=== PATIENT | male | born 1950 | race Caucasian/White ===

== ENCOUNTER 2020-04-13 10:51 | Outpatient (CLI) | payer MEDICARE, SELFPAY ==
--- NOTE | ~2020-04-13 | XR_ITS ---
XR knee RT 3V, XR knee LT 3V 04/13/2020 11:17 Indication: Osteoarthritis. Procedure: 3 views each knee Comparison: Comparison to multiple prior studies sequentially, with oldest reviewed study dated 10/2016. Findings: There is mild bilateral tricompartment osteoarthritis. No fracture, subluxation or dislocat ion. Normal anatomic alignment. No significant joint effusion. Impression: 1: Mild osteoarthritis of the knees. Reviewed, dictated and finalized at location B. Impression: 1: Mild osteoarthritis of the knees. Impression: 1: Mild osteoarthritis of the knees.
== END 2020-04-13 10:52 | disposition home or self-care (01) ==
LOC: ANHIMG 10:53
PROVIDERS: PCP Internal Medicine; Visit Provider Internal Medicine
DX: M17.0 Bilateral primary osteoarthritis of knee (principal)
CPT/HCPCS: 73562

== ENCOUNTER 2020-05-10 12:50 | Outpatient (CLI) | payer MEDICARE, SELFPAY ==
--- NOTE | ~2020-05-10 | US_ITS ---
EXAMINATION: US thyroid DATE: 05/10/2020 13:31 INDICATION: Abnormal results of thyroid function studies. TECHNIQUE: Multiple ultrasound images of the thyroid were obtained. COMPARISON: None. FINDINGS: The right thyroid lobe measures 4.2 x 1.3 x 1.8 cm. The left thyroid lobe measures 2.8 x 1.2 x 1.5 c m. There is a 4 mm nodule in right thyroid lobe, likely not clinically significant. IMPRESSION: 1. Small thyroid nodule, likely not clinically significant. Reviewed, dictated and finalized at location B.
== END 2020-05-10 12:51 | disposition home or self-care (01) ==
LOC: ANHIMG 12:54
PROVIDERS: PCP Physician Assistant; Visit Provider Physician Assistant
DX: R94.6 Abnormal results of thyroid function studies (principal)
CPT/HCPCS: 76536

== ENCOUNTER 2020-07-24 11:14 | Outpatient (NON) | payer MEDICARE, SELFPAY ==
[2020-07-24 20:51] LABS: SARS-CoV-2 RNA PCR Negative
== END 2020-07-24 11:15 ==
LOC: ANHCOVIDDT 11:16
PROVIDERS: PCP Physician Assistant; Visit Provider Physician Assistant
DX: R68.89 Other general symptoms and signs (principal); Z20.828 Contact with and (suspected) exposure to other viral communicable diseases
CPT/HCPCS: 87635; C9803; U0003

== ENCOUNTER 2020-08-30 07:38 | Outpatient (CLI) | payer MEDICARE, SELFPAY ==
--- NOTE | 2020-10-12 09:25 | WPDHOMESLEEP ---
Sleep Study - Home Unattended Date of Study: 08/30/20 Ordering Provider: Jonah Tadeo PA-C Interpreting Physician: Ladi Ritchie MD Home Sleep Study Type: Apnea Link Air Height: 1.73 m Weight: 99.337 kg Body Mass Index: 33.3 Neck Circumference (inches): 19.5 [place]: 15 Reason for Sleep Study Hypersomnolence Sleep History Campbell Coronado is a 70-year-old man who has complaints of daytime sleepiness. He naps during the day. He occasionally snores and occasionally is loud enough that others complain about it. He occasionally awakens at night with heartburn, belching or coughing. Does not awaken from sleep feeling short of breath, does not have breathing problems at night reported to him by others. He occasionally sweats excessively at night. He rarely notices his heart pounding irregularly at night. He occasionally falls asleep during the day, rarely involuntarily, rarely while driving. He does not fall asleep while exerting physical effort. He does not have loss of muscle tone was strong emotion. He occasionally has daytime difficulties due to excessive sleepiness currently is semi retired. He does not feel paralyzed on waking or falling asleep and does not have vivid dreamlike scenes upon awakening or falling asleep. He rarely is afraid to go to sleep. He rarely has nightmares. He occasionally remembers his dreams, occasionally has racing thoughts. He rarely feels sad or depressed. He occasionally has anxiety. He occasionally has muscular tension and notices parts of his body jerking. He does not kick at night. He rarely has crawling and aching feelings in his legs and rarely has leg pain at night. He does not have morning jaw pain. He frequently grinds his teeth during sleep. He occasionally has bothered by pain during the day, occasionally is awakened by pain at night. He occasionally wakes up feeling stiff in the morning with sore achy muscles and pain in the neck and spine. He has fatigue, sexual problems, memory problems and concentration difficulties. Normal bedtime is between 11:00 p.m. and 12 midnight taking 1/2 hour to fall asleep, waking once during the night. If he is really exhausted then he may not wake at all during the night. On average when awake will go to the bathroom and then returned to bed. These episodes take 15 minutes. He wakes in the morning at 6:00 a.m.. On the weekend he may wake a little later at 6:30 a.m.. He does take naps in the afternoon or evening. A short nap is not refreshing. Most of the time he is drowsy in the morning for 3 hours or longer. He feels better in the morning compared to other times a day Habits: he has never smoked. Caffeine 1 cup of coffee 4 times a week. He drinks alcohol 2 to 3 oz a day. No recreational drugs. [facility] Past Medical History Medical History (Updated 10/12/20 @ 13:18 by Ladi Ritchie MD) Benign prostatic hyperplasia Gout History of pancreatitis Hyperlipidemia Hypertension Squamous cell carcinoma Type 2 diabetes mellitus Vitamin D deficiency Surgical History Surgical History H/O left knee surgery History of arthroscopy of left knee History of cardiac catheterization July 2011, done at [place] after an abnormal EKG portion of a stress test with normal myocardial perfusion images. Minimal nonobstructing coronary artery disease was noted. History of surgical removal of squamous cell carcinoma of skin of right faith History of testicular surgery Family History Family History Mother Carcinoma of colon Patient's mother is Father Patient's father is Other Cerebrovascular accident Hypertension Social History Social History Social History: The patient lives with his in [place]. 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 He jordi
[2020-10-12 13:25] VITALS: BMI 33.3
== END 2020-08-30 07:39 | disposition home or self-care (01) ==
LOC: ANHCSM 07:39
PROVIDERS: PCP Physician Assistant; Visit Provider Physician Assistant
DX: G47.10 Hypersomnia, unspecified (principal)
CPT/HCPCS: 95806

== ENCOUNTER 2020-09-27 11:08 | Outpatient (NON) | payer MEDICARE, SELFPAY ==
[2020-09-27 22:09] LABS: SARS-CoV-2 RNA PCR Negative
== END 2020-09-27 11:09 ==
LOC: ANHCOVIDDT 11:09
PROVIDERS: PCP Physician Assistant; Visit Provider Physician Assistant
DX: R68.89 Other general symptoms and signs (principal); Z20.828 Contact with and (suspected) exposure to other viral communicable diseases
CPT/HCPCS: 87635; C9803; U0003

== ENCOUNTER → 2020-11-10 00:24 | Outpatient (CLI) | payer MEDICARE, SELFPAY ==
[2020-11-10 18:19] LABS: SARS-CoV-2 RNA PCR Negative
== END ==
PROVIDERS: PCP Physician Assistant; Visit Provider Internal Medicine Critical Care Medicine
DX: Z01.812 Encounter for preprocedural laboratory examination (principal); Z20.822 Contact with and (suspected) exposure to COVID-19
CPT/HCPCS: C9803; U0003; U0005

== ENCOUNTER 2020-11-14 09:23 | Outpatient (CLI) | payer MEDICARE, SELFPAY ==
--- NOTE | 2020-11-28 14:58 | WPDSLEEPSTUD ---
Sleep Study Date of Study: 11/14/20 Ordering Provider: Jonah Tadeo PA-C Interpreting Physician: Ladi Ritchie MD Sleep Study Type: Split Polysomnogram Height: 1.73 m Weight: 97.976 kg Body Mass Index: 32.8 Neck Circumference: 4.57 m [place]: 10 Reason for Sleep Study Homes Sleep test 08/30/2020 with desaturation to 75%, Rajendra-Joy respirations during 3% of the test, BMI was 33.3 Hypersomnolence with [place] 15; presents now for split night study to confirm presence of obstructive sleep apnea and treat Sleep History Campbell Coronado is a 70 year old man who frequently snores, occasionally loudly enough that others complain about it. He occasionally awakens at night with heartburn, belching or coughing. He rarely awakens from sleep feeling short of breath. He rarely has trouble sleep with a cold. He does not wake up gasping for breath at night and does not have breathing problems at night reported to him by others. He occasionally sweats excessively at night. He rarely notices his heart pounding or beating irregularly night. He occasionally falls asleep during the day, rarely involuntarily, never while driving. He does not have loss of muscle tone with strong emotion. He does not have daytime difficulties due to excessive sleepiness. He does not feel paralyzed on waking or falling asleep and does not have vivid dreamlike scenes upon awakening or falling asleep. He does not feel afraid to go to sleep. He does not have nightmares. He does not remember his dreams. He rarely has racing thoughts. He rarely feels sad depressed or anxious. He rarely has muscular tension. He does not notice parts of his body jerking. He does not kick at night and does not have crawling or aching feelings in his legs. He does not have any kind of leg pain at night. He denies morning jaw pain. He occasionally grind his teeth during sleep. He occasionally is bothered by pain during the day. He rarely is awakened by pain at night, rarely wakes up feeling stiff in the morning with sore or achy muscles or pain in the neck and spine. He has fatigue. Normal bedtime is 10:30 p.m. taking 20 minutes to fall asleep typically waking twice at night to urinate. He is back to sleep in 3 minutes. He wakes the morning at 5:30 a.m.. On the weekends he stays awake until 11:00 p.m., wakes in the morning at 6:30 a.m.. He estimates getting 7-8 hours of sleep at night. Habits: Never smoked tobacco. Caffeine 1 cup per day. Alcohol 2 oz per day. [facility] Past Medical History Medical History (Updated 11/28/20 @ 15:07 by Ladi Ritchie MD) Benign prostatic hyperplasia Gout History of pancreatitis Hyperlipidemia Hypertension Squamous cell carcinoma Type 2 diabetes mellitus Vitamin D deficiency Surgical History Surgical History H/O left knee surgery History of arthroscopy of left knee History of cardiac catheterization July 2011, done at [place] after an abnormal EKG portion of a stress test with normal myocardial perfusion images. Minimal nonobstructing coronary artery disease was noted. History of surgical removal of squamous cell carcinoma of skin of right jain History of testicular surgery Family History Family History Mother Carcinoma of colon Patient's mother is Father Patient's father is Other Cerebrovascular accident Hypertension Social History Social History Social History: The patient lives with his in [place]. 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 He designates his , Sharmaine, as his surrogate decision maker and he wishes to be a full code. He denies tobacco and drug use. He drinks 6 ounces of scotch, most nights of the week. Smoking status: Never smoker Second hand tobacco smoke exposure: No A
[2020-11-29 15:13] VITALS: BMI 32.8
== END 2020-11-14 09:24 | disposition home or self-care (01) ==
LOC: ANHCSM 09:23
PROVIDERS: PCP Physician Assistant; Visit Provider Physician Assistant
DX: G47.33 Obstructive sleep apnea (adult) (pediatric) (principal)
CPT/HCPCS: 95811

== ENCOUNTER 2020-11-14 09:54 | Outpatient (CLI) | payer MEDICARE, SELFPAY ==
--- NOTE | ~2020-11-14 | US_ITS ---
US right upper quadrant DATE: 11/14/2020 10:49 INDICATION: Right upper quadrant abdominal pain TECHNIQUE: Real-time imaging of liver, pancreas, gallbladder COMPARISON: November 21, 2015 CT abdomen pelvis 10/23/2019 right upper quadrant ultrasound FINDINGS: Hepatic steatosis. 2 cm hepatic cyst near gallbladder. Otherwise no hepatic space-occupying mass lesion is evident. Normal hepatopedal portal venous flow direction. The pancreas is largely obscured by bowel gas. There is mild nonspecific gallbladder wall thickening. No gallstones are noted. Negative sonographic Farias's sign. The common bile duct measures 3.7 mm, within normal range. IMPRESSION: Hepatic steatosis 2 cm hepatic cyst Mild gallbladder wall thickening; negative sonographic Farias's sign. No gallstones identified Reviewed, dictated and finalized at Location A. Reviewed, dictated and finalized at location B. 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 No gallst ones identified
== END 2020-11-14 09:55 | disposition home or self-care (01) ==
PROVIDERS: PCP Physician Assistant; Visit Provider Physician Assistant
DX: R10.11 Right upper quadrant pain (principal); K76.0 Fatty (change of) liver, not elsewhere classified
CPT/HCPCS: 76705; 95811

== ENCOUNTER 2021-01-10 08:58 | Outpatient (CLI) | payer MEDICARE, SELFPAY | END 2021-01-10 08:59 | disposition home or self-care (01) | LOC: ANHCOVIDVC 08:58 | PROVIDERS: PCP Physician Assistant | DX: Z23 Encounter for immunization (principal) | CPT/HCPCS: 0001A; 91300 ==

== ENCOUNTER 2021-01-31 09:04 | Outpatient (CLI) | payer MEDICARE, SELFPAY | END 2021-01-31 09:05 | disposition home or self-care (01) | LOC: ANHCOVIDVC 09:04 | PROVIDERS: PCP Physician Assistant | DX: Z23 Encounter for immunization (principal) | CPT/HCPCS: 0002A; 91300 ==

== ENCOUNTER 2021-10-11 11:03 | Outpatient (RCR) | payer MEDICARE, SELFPAY ==
[2021-10-11] MEDS: ACETAMINOPHEN 325 MG TABLET 650 MG PO (15:49)
[2021-10-11] MEDS: FAMOTIDINE 20 MG TABLET PO (15:49)
[2021-10-11] MEDS: diphenhydrAMINE HCl CAP 25 MG CAPSULE PO (15:49)
[2021-10-11 15:51] VITALS: BP 159/80; PULSE 64; RESP 20; TEMP 36.4; O2SAT 99
[2021-10-11 16:54] VITALS: BP 144/69
== END 2021-10-11 17:00 ==
LOC: AMCINF 11:03
PROVIDERS: PCP Internal Medicine; Visit Provider Internal Medicine Hematology & Oncology
DX: U07.1 COVID-19 (principal); I10 Essential (primary) hypertension; E11.9 Type 2 diabetes mellitus without complications
CPT/HCPCS: A9270; M0243; Q0244

== ENCOUNTER → 2021-10-12 07:25 | Outpatient (CLI) | payer MEDICARE, SELFPAY ==
[2021-10-13 18:18] LABS: SARS-CoV-2 RNA PCR Positive
== END ==
PROVIDERS: PCP Internal Medicine; Visit Provider Internal Medicine
DX: U07.1 COVID-19 (principal)
CPT/HCPCS: C9803; U0003; U0005

== ENCOUNTER 2023-05-30 11:05 | Outpatient (CLI) | payer MEDICARE, SELFPAY ==
--- NOTE | ~2023-05-30 | US_ITS ---
EXAMINATION: US thyroid DATE: 05/30/2023 11:55 INDICATION: Thyroid nodule with family history of thyroid cancer TECHNIQUE: Multiple ultrasound images of the thyroid were obtained. COMPARISON: 05/10/2020 FINDINGS: The right thyroid lobe measures 3.5 x 0.9 x 1.1 cm. The left thyroid lobe measures 2.0 x 0.8 x 1.1 c m. Slight interval decrease in size of a now 2-3 mm hypoechoic nodule in the right thyroid. No other thyroid nodules identified. There is normal echotexture, echogenicity and vascular flow throughout t he thyroid gland. incidentally noted are a few normal-sized and appearing lymph nodes measuring 6 mm in short axis diameter in the left neck and 5 mm maximal short axis diameter at the right submandibu lar region. IMPRESSION: 1. Slight decrease in size of a likely benign, now 2 and 3 mm right thyroid nodule. Recommend clinica l followup with repeat imaging if there are changes on physical exam. Reviewed, dictated and finalized at location A. IMPRESSION: 1. Slight decrease in size of a likely benign, now 2 and 3 mm right thyroid nod ule. Recommend clinical followup with repeat imaging if there are changes on ph ysical exam.
== END 2023-05-30 11:06 | disposition home or self-care (01) ==
PROVIDERS: PCP Physician Assistant; Visit Provider Physician Assistant
DX: E04.1 Nontoxic single thyroid nodule (principal); Z80.8 Family history of malignant neoplasm of other organs or systems
CPT/HCPCS: 76536

== ENCOUNTER 2024-07-29 09:44 | Observation (INO) | payer MEDICARE, SELFPAY ==
[2024-07-29] VITALS (11 sets, daily range): BP systolic 130–157; BP diastolic 71–96; PULSE 73–180; RESP 16–19; TEMP 36.4–36.7; O2SAT 93–97; BMI 32.1
--- NOTE | ~2024-07-29 | NM_ITS ---
EXAMINATION: NM argenis stress w perfusion DATE: 07/30/2024 13:09 INDICATION: Elevated troponin TECHNIQUE: Rest images were obtained following intravenous administration of 8.5 mCi Tc99m tetrofosmi n (Myoview). The patient was infused intravenously with Lexiscan (Regadenoson). Then, 28 mCi Tc99m te trofosmin (Myoview) was administered intravenously, and stress images were obtained in supine positio n. Additional repeat post stress images were obtained in the prone position. Data was reconstructed i nto short axis and horizontal and vertical long axis SPECT images. Gated SPECT images were also obtai courtney. COMPARISON: None. FINDINGS: There is likely artifactual decreased activity along the mid and basilar inferolateral segm ents on the rest and stress images which normalizes on the post stress imaging obtained in the prone position. There is no definite reversible or fixed perfusion abnormality to suggest ischemia or infar ction. There is normal left ventricular chamber size, wall motion and ejection fraction. Left ventr icular ejection fraction measures 65%. IMPRESSION: 1. Normal myocardial perfusion at rest and during stress. 2. Left ventricular ejection fraction measuring 65%. Reviewed, dictated and finalized at location A.
--- NOTE | ~2024-07-29 | XR_ITS ---
EXAMINATION: XR chest 2V DATE: 07/29/2024 10:39 INDICATION: Chest pain. Palpitations. TECHNIQUE: Frontal and lateral views of the chest were obtained. COMPARISON: Chest 2 views 10/11/2019 FINDINGS: Calcified right lung nodules and calcified right hilar lymph nodes are consistent with old granulomatous disease. No pleural effusion or pneumothorax. The heart size is normal. IMPRESSION: 1. No acute cardiopulmonary disease. Reviewed, dictated and finalized at location B.
--- NOTE | 2024-07-29 09:47 | ECG_ITS ---
Test Date: 2024-07-29 09:49:43 Measurements Intervals [place] Rate: 179 P: 0 [place]: 0 QRS: -21 QRSD: 87 T: 112 QT: 258 QTc: 445 Interpretive Statements SUPRAVENTRICULAR TACHYCARDIA BORDERLINE LEFT AXIS DEVIATION [QRS AXIS < -20] MARKED ST DEPRESSION, CONSIDER SUBENDOCARDIAL INJURY [0.2+ mV ST DEPRESSION] No previous ECG available for comparison Electronically Signed On 07-29-2024 11:49:47 CDT by Pieter Max M.D.
--- NOTE | 2024-07-29 09:56 | ECG_ITS ---
Test Date: 2024-07-29 09:59:16 Measurements Intervals [place] Rate: 89 P: -41 ND: 152 QRS: 16 QRSD: 94 T: 77 QT: 373 QTc: 456 Interpretive Statements SINUS RHYTHM NONSPECIFIC ST & T-WAVE ABNORMALITY Compared to ECG 07/29/2024 09:49:43 T-wave abnormality now present Supraventricular tachycardia no longer present ST (T wave) deviation no longer present Electronically Signed On 07-29-2024 11:50:17 CDT by Pieter Max M.D.
--- NOTE | 2024-07-29 09:58 | ED.GENADULT ---
HPI - General Adult General Chief complaint: Arrhythmia/Palpitations Stated complaint: CHEST PAIN X1HR Time Seen by Provider: 07/29/24 09:51 History of Present Illness HPI narrative: 73-year-old male with no prior history of coronary disease or SVT presents to the emergency department for evaluation for rapid heart rate lightheadedness. Patient states he was at an outside hospital when he had onset of feeling foggy headed and developed some chest pressure. Patient presented to our emergency department for evaluation is found to have a heart rate of 180 beats per minute upon arrival. Patient was having some chest pressure with this but denies any specific pain. Patient states he has having some increased generalized fatigue with exertion over the last few months. Related Data Home Medications Medication Instructions Recorded Confirmed cetirizine 10 mg tablet (Allergy 10 mg PO DAILY 10/08/19 07/29/24 Relief (cetirizine)) ascorbic acid (vitamin C) 1,000 mg 1 g PO DAILY 11/18/23 07/29/24 tablet Allergies Allergy/AdvReac Type Severity Reaction Status Date / Time levofloxacin Allergy Mild Swelling Verified 07/29/24 10:11 Penicillins Allergy Mild Flushing Verified 07/29/24 10:11 Sulfa (Sulfonamide Allergy Mild swelling Verified 07/29/24 10:11 Antibiotics) Review of Systems Review of Systems: All systems reviewed & are unremarkable except as noted in HPI and below PMFSH Past Medical History Medical History Benign prostatic hyperplasia Gout History of pancreatitis Hyperlipidemia Hypertension Obstructive sleep apnea (~10/2020) Squamous cell carcinoma Type 2 diabetes mellitus Vitamin D deficiency Surgical History Surgical History H/O left knee surgery History of arthroscopy of left knee History of cardiac catheterization July 2011, done at [place] after an abnormal EKG portion of a stress test with normal myocardial perfusion images. Minimal nonobstructing coronary artery disease was noted. History of surgical removal of squamous cell carcinoma of skin of right adventism History of testicular surgery Family History Family History Mother Carcinoma of colon Patient's mother is Father Patient's father is Other Cerebrovascular accident Hypertension Social History Social History Social History: The patient lives with his in [place]. 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 He designates his , Sharmaine, as his surrogate decision maker and he wishes to be a full code. He denies tobacco and drug use. He drinks 6 ounces of scotch, most nights of the week. Smoking status: Never smoker Second hand tobacco smoke exposure: No Alcohol intake: current Drinks per week: 7 Substance use: never Substance use type: does not use Do You Feel Safe in your Home?: Yes Lack of Transportation: No Lack of Food: Never True Current Housing: I Have Housing Concerned About Future Housing: No Difficulty Paying Gas/Electric Bills: No Difficulty Paying for Meds: No Currently Unemployed: No Education: Trade/Vocational Certificate Difficulty w/ Childcare or Family Care: No Spiritual care concerns: No Agree to blood products: Yes Exam Narrative: APPEARANCE: Well appearing, no pain, no distress, well-nourished. HEAD: normocephalic, atraumatic. EYES: PERRLA/EOMI, conjunctivae clear. NOSE: Normal no drainage EARS:TMS clear with good light reflex. THROAT: Pharynx clear, no exudate. NECK: Supple. No adenopathy, no masses. RESPIRATORY: Airway patent, respirations nonlabored. Clear to auscultation bilaterally, no rales, rhonchi, wheezing. CARDIOVASCULAR: Regular rate and rhythm without murmurs rubs or gallops. ABDOMINAL: Soft, nontender, nondistended, normal bowel sounds MUSCULOSKELETAL: Moves all extremities. Strength/ROM intact, No edema, No calf tenderness. NEURO: Alert. Cranial nerves II through XII intact. Grossly intact SKIN: Warm, dry. Normal Color Course Vital Signs Vital signs: Vital Signs Pulse Rate 180 H 07/29/24 10:00 Respiratory Rate 19 07/29/24 10:00 Temperature 97.7 F 07/29/24 16:40 Pulse Rate 83 07/29/24 18:00 Respiratory Rate 18 07/29/24 16:40 Blood Pressure 132/96 H 07/29/24 16:40 Pulse Oximetry 97 07/29/24 16:40 Procedures Other Procedure Procedure 1: Other Procedure: Cardioversion using modified Valsalva was performed. Patient converted from SVT with a heart rate of 172 normal sinus rhythm with a heart rate of in 90s. Immediately after cardioversion patient states that his chest pressure was resolved. Medical Decision Making MDM Narrative Medical decision making narrative: 73-year-old male presenting to the emergency department for evaluation for rapid heart rate lightheadedness and chest pressure. Patient was found to be in SVT upon arrival to the emergency department. Patient was converted using the modified Valsalva and patient immediately stated that his symptoms of chest pressure resolved. Patient's initial EKG did show the heart rate of 179 beats per minute, 2nd EKG did show return to normal sinus rhythm with some ST changes. Patient's subsequent EKG showed resolution the ST depression. Patient's initial troponin was 0.014. Patient's 3 hour troponin was bumped to 0.721. Cardiology was consulted and they did not feel that the patient required heparin. Patient will be admitted to the hospitalist with cardiology consult. Was updated the results of the workup and necessity for admission and further evaluation. All questions concerns were addressed patient was well-appearing at time of admission. Differential Diagnosis Differential Diagnosis: SVT, V-tach, heart strain. Vital Signs Vital Signs: Vital Signs Pulse Rate 180 H 07/29/24 10:00 Respiratory Rate 19 07/29/24 10:00 Temperature 97.7 F 07/29/24 16:40 Pulse Rate 83 07/29/24 18:00 Respiratory Rate 18 07/29/24 16:40 Blood Pressure 132/96 H 07/29/24 16:40 Pulse Oximetry 97 07/29/24 16:40 Lab Data Lab results reviewed: Yes I reviewed the patient's lab results. 07/29/24 10:12 07/29/24 10:13 Labs: Lab Results 07/29/24 07/29/24 07/29/24 Range/Units 10:12 10:13 13:01 WBC 12.1 H (4.5-10.0) K/mm3 RBC 5.20 (4.6-6.20) M/mm3 Hgb 17.4 D (14.0-18.0) g/dL Hct 48.2 (42.0-52.0) % MCV 92.7 (80-100) fl MCH 33.5 (26-34) pg MCHC 36.1 H (32-36) g/dl RDW 13.2 (11.5-14.5) % Plt Count 289 (150-375) k/mm3 MPV 9.2 (7.4-10.4) fl Immature Gran % (Auto) 1.6 H (0-0.5) % Neut % (Auto) 72.6 (45.5-73.1) % Lymph % (Auto) 11.3 L (18.3-44.2) % [place] % (Auto) 10.5 H (2.6-8.5) % Eos % (Auto) 3.1 (0-4.4) % Baso % (Auto) 0.9 (0.2-1.2) % Lymph # (Auto) 1.37 (0.9-3.2) K/mm3 [place] # (Auto) 1.3 H (0.1-0.6) K/mm3 Eos # (Auto) 0.4 H (0-0.3) K/mm3 Baso # (Auto) 0.1 (0.0-0.1) K/mm3 Abs Immat Gran (auto) 0.19 H (0.00-0.031) K/mm3 Absolute Neuts (auto) 8.8 H (1.3-6.7) K/mm3 Absolute Nucleated RBC 0.000 (0.0-0.012) K/mm3 Nucleated RBC % 0.0 (0.0-0.2) % PT 13.4 (11.1-14.7) Seconds INR 1.0 APTT 25.8 (22.3-36.8) Seconds Sodium 134 L (137-145) mmol/L Potassium 3.7 (3.4-5.0) mmol/L Chloride 93 L (98-107) mmol/L Carbon Dioxide 31 H (22-30) mmol/L Anion Gap 10 (4-12) mmol/L BUN 15 (9-20) mg/dL Creatinine 1.00 (0.7-1.3) mg/dL Estim Creat Clear Calc 65 ml/min Estimated GFR > 60 (59 - ) Glucose 220 H (65-110) mg/dL Calcium 8.8 (8.4-10.2) mg/dL Magnesium 2.2 (1.6-2.3) mg/dL Total Bilirubin 1.4 H (0.2-1.3) mg/dL AST 74 H (17-59) U/L ALT 60 H (6-50) U/L Alkaline Phosphatase 118 (38-126) U/L Troponin I 0.014 0.721 H* D (0.000-0.034) ng/mL Total Protein 8.0 (6.3-8.2) g/dL Albumin 4.6 (3.5-5.1) g/dL Lipase 184 (23-300) U/L Imaging Data Radiologist's impression: Impressions Chest X-Ray 07/29/24 10:48 IMPRESSION: 1. No acute cardiopulmonary disease. Critical Care Time Critical Care Time Critical Care Time: Yes Total Critical Care Time: 35 Discharge Plan Discharge Clinical Impression: SVT (supraventricular tachycardia), Elevated troponin Patient Disposition: Still a Patient Condition: Serious
[2024-07-29 10:18] LABS: Basophils Absolute Auto 0.1 K/mm3 (0.0-0.1); Basophils Percent Auto 0.9 % (0.2-1.2); Eosinophils Absolute Auto 0.4 K/mm3 (0-0.3); Eosinophils Percent Auto 3.1 % (0-4.4); Hematocrit 48.2 % (42.0-52.0); Hemoglobin 17.4 g/dL (14.0-18.0); Immature Granulocyte Absolute 0.19 K/mm3 (0.00-0.031); Immature Granulocyte Percent A 1.6 % (0-0.5); Lymphocytes Absolute Auto 1.37 K/mm3 (0.9-3.2); Lymphocytes Percent Auto 11.3 % (18.3-44.2); Mean Corpuscular HGB Conc 36.1 g/dl (32-36); Mean Corpuscular Hemoglobin 33.5 pg (26-34); Mean Corpuscular Volume 92.7 fl (80-100); Mean Platelet Volume 9.2 fl (7.4-10.4); Monocytes Absolute Auto 1.3 K/mm3 (0.1-0.6); Monocytes Percent Auto 10.5 % (2.6-8.5); Neutrophils Absolute Auto 8.8 K/mm3 (1.3-6.7); Neutrophils Percent Auto 72.6 % (45.5-73.1); Platelet Count Result 289 k/mm3 (150-375); Red Cell Distribution Width 13.2 % (11.5-14.5); White Blood Count 12.1 K/mm3 (4.5-10.0)
[2024-07-29 10:29] LABS: Alanine Aminotransferase 60 U/L (6-50); Albumin Level 4.6 g/dL (3.5-5.1); Alkaline Phosphatase 118 U/L (38-126); Anion Gap 10 mmol/L (4-12); Aspartate Amino Transferase 74 U/L (17-59); Bilirubin,Total 1.4 mg/dL (0.2-1.3); Blood Urea Nitrogen 15 mg/dL (9-20); Calcium 8.8 mg/dL (8.4-10.2); Carbon Dioxide 31 mmol/L (22-30); Chloride 93 mmol/L (98-107); Estimated CRCL calculation 65 ml/min; Estimated Glomerular Filt Rate > 60; Glucose 220 mg/dL (65-110); Lipase 184 U/L (23-300); Potassium 3.7 mmol/L (3.4-5.0); Sodium 134 mmol/L (137-145)
[2024-07-29 10:30] LABS: Prothrombin Time 13.4 Seconds (11.1-14.7)
[2024-07-29 10:31] LABS: Magnesium 2.2 mg/dL (1.6-2.3)
[2024-07-29 10:37] LABS: Partial Thromboplastin Time 25.8 Seconds (22.3-36.8)
[2024-07-29 10:41] LABS: Troponin I 0.014 ng/mL (0.000-0.034)
--- NOTE | 2024-07-29 11:25 | PC.NURSE ---
orthotic technician to bedside for ordered repeat EKG.
--- NOTE | 2024-07-29 11:25 | ECG_ITS ---
Test Date: 2024-07-29 11:51:06 Measurements Intervals [place] Rate: 84 P: 85 [place]: 203 QRS: 8 QRSD: 90 T: 79 QT: 387 QTc: 458 Interpretive Statements SINUS RHYTHM WITH OCCASIONAL VENTRICULAR PREMATURE COMPLEXES NONSPECIFIC T-WAVE ABNORMALITY Compared to ECG 07/29/2024 09:59:16 Ventricular premature complex(es) now present T-wave abnormality still present Electronically Signed On 07-29-2024 11:57:28 CDT by Pieter Max M.D.
--- NOTE | 2024-07-29 13:05 | ECG_ITS ---
Test Date: 2024-07-29 13:27:55 Measurements Intervals [place] Rate: 74 P: 14 CT: 202 QRS: 16 QRSD: 85 T: 84 QT: 407 QTc: 453 Interpretive Statements SINUS RHYTHM NONSPECIFIC ST & T-WAVE ABNORMALITY Compared to ECG 07/29/2024 11:51:06 Ventricular premature complex(es) no longer present T-wave abnormality still present Electronically Signed On 07-29-2024 15:40:25 CDT by Pieter Max M.D.
[2024-07-29 13:33] LABS: Troponin I 0.721 ng/mL (0.000-0.034)
--- NOTE | 2024-07-29 14:44 | P.HP_ITS ---
H&P: HPI History of Present Illness Date/Time: 07/29/24 14:44 Chief Complaint: Palpitations, Chest Pain Narrative: 73 y/o M presents here with chest pain and palpitations with PMH of gout, pancreatitis, HLD, HTN, MYLES not on CPAP due to intolerance, squamous cell carcinoma s/p excision, diabetes, prostate cancer s/p prostatectomy, and vitamin-D deficiency. The patient presents here from home with palpitations and chest pain. He reports onset at around 08:00 a.m. He also had a strange sensation that crept over neck and head on the left side and felt like a brain freeze which quickly resolved. Which was constant for 1 hour prior to arrival. He further described the chest pain as tight, pressure-like, nonradiating, constant, and no aggravating or alleviating factors. Endorsed associated lightheadedness, diaphoresis, increased belching. Denies nausea, shortness of breath, or dizziness. Upon arrival, legal administrator showed SVT with a rate of 180. Patient was converted into normal sinus rhythm with a modified Valsalva maneuver. Upon buddhist of NSR, patient reports resolution of chest pressure and palpitations. He does report proceeding generalized fatigue that is exacerbated by exertion over the last 6 months. He reports no further recurrent chest pain, lightheadedness, dizziness, or palpitations. No hx of SVT. Initial VS at presentation: 97.6? F, HR 180, RR 19, 130/79, and 96% on RA. ED workup showed: WBC 12.1, hemoglobin 17.4, normal coags, sodium 134, creatinine 1.0 and GFR >60, glucose 220, initial troponin 0.014 and 2nd troponin 0.721. CXR showed no acute cardiopulmonary disease. Initial EKG showed SVT with a heart rate of 179, borderline left axis deviation, marked ST depression consider subendocardial injury. Review of Systems Review of Systems: All systems reviewed & are unremarkable except as noted in HPI and below [facility] Past Medical History Medical History Anxiety Benign prostatic hyperplasia Diastolic murmur Gout Hernia History of pancreatitis Hyperlipidemia Hypertension Obstructive sleep apnea (~10/2020) Squamous cell carcinoma TIA (transient ischemic attack) Type 2 diabetes mellitus Vitamin D deficiency Surgical History Surgical History H/O left knee surgery History of arthroscopy of left knee History of cardiac catheterization July 2011, done at [facility] after an abnormal EKG portion of a stress test with normal myocardial perfusion images. Minimal nonobstructing coronary artery disease was noted. History of surgical removal of squamous cell carcinoma of skin of right jain History of testicular surgery Family History Family History Mother Carcinoma of colon Patient's mother is Father Patient's father is Other Cerebrovascular accident Hypertension Social History Social History Social History: The patient lives with his in [place]. 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 He designates his , Sharmaine, as his surrogate decision maker and he wishes to be a full code. He denies tobacco and drug use. He drinks 6 ounces of scotch, most nights of the week. Smoking status: Never smoker Second hand tobacco smoke exposure: No Alcohol intake: current Drinks per week: 7 Substance use: never Substance use type: does not use Do You Feel Safe in your Home?: Yes Lack of Transportation: No Lack of Food: Never True Current Housing: I Have Housing Concerned About Future Housing: No Difficulty Paying Gas/Electric Bills: No Difficulty Paying for Meds: No Currently Unemployed: No Education: Trade/Vocational Certificate Difficulty w/ Childcare or Family Care: No Spiritual care concerns: No Agree to blood products: Yes Meds Home Medications and Allergies Home Medications Medication Instructions Recorded Confirmed Type cetirizine 10 mg tablet (Allergy 10 mg PO DAILY 10/08/19 07/29/24 History Relief (cetirizine)) ascorbic acid (vitamin C) 1,000 mg 1 g PO DAILY 11/18/23 07/29/24 History tablet semaglutide 1 mg/dose (4 mg/3 mL) 1 mg (0.75 mL) subcut WEEKLY #3 mL 05/18/24 07/29/24 Rx subcutaneous pen injector (Ozempic) losartan 100 1 tablet PO DAILY #90 tabs 07/05/24 07/29/24 Rx mg-hydrochlorothiazide 12.5 mg tablet polyethylene glycol 3350 17 17 g PO HS 07/29/24 07/29/24 History gram/dose oral powder (Miralax) Allergies Allergy/AdvReac Type Severity Reaction Status Date / Time levofloxacin Allergy Mild Swelling Verified 07/29/24 10:11 Penicillins Allergy Mild Flushing Verified 07/29/24 10:11 Sulfa (Sulfonamide Allergy Mild swelling Verified 07/29/24 10:11 Antibiotics) Vital Signs Vital Signs - 24 hr 07/29/24 10:06 07/29/24 10:00 07/29/24 10:00 Temperature 97.6 F Pulse Rate 180 H 180 H 88 Respiratory Rate 18 19 Blood Pressure Pulse Oximetry 96 07/29/24 10:07 07/29/24 12:10 07/29/24 13:35 Temperature Pulse Rate 91 102 H 76 Respiratory Rate 17 18 16 Blood Pressure 130/79 131/71 157/93 H Pulse Oximetry 93 94 94 Exam Const: General: comfortable and no acute distress Other: , male, elderly, nontoxic appearance HENMT: Face/Nose/Sinus: Normal nares present Mouth: Yes moist mucous membranes Eyes: General: appearance normal, both eyes and all related structures Sclera: sclerae normal Pupils: Equal, round and reactive pupils present EOM: EOMs intact bilaterally Resp: Effort & Inspection: normal respiratory effort Auscultation: clear to auscultation bilaterally Cardio: Rate: regular rate (70s) Rhythm: regular rhythm Other: S1-S2 present without murmur, rub, ectopy GI: Other: Abdomen rounded, soft, nondistended. Normoactive bowel sounds in all quadrants. Skin: General skin exam: normal color and no rashes or lesions noted Wounds: no wounds Neuro: Speech: normal speech Motor exam (neuro): 5/5 motor strength present throughout Sensory Exam: normal sensation Other: A&O x4 Extrem: General: normal to inspection Psych: Mental Status: mental status grossly normal Affect: normal affect Other: Good insight and judgment, pleasant H&P: Results Labs Labs: Short CBC 07/29/24 Range/Units 10:12 WBC 12.1 H (4.5-10.0) K/mm3 Hgb 17.4 D (14.0-18.0) g/dL Hct 48.2 (42.0-52.0) % Plt Count 289 (150-375) k/mm3 [facility] 07/29/24 10:13 Sodium 134 L Potassium 3.7 Chloride 93 L Carbon Dioxide 31 H BUN 15 Creatinine 1.00 Glucose 220 H Calcium 8.8 Cardiac Enzymes 07/29/24 07/29/24 Range/Units 10:13 13:01 Troponin I 0.014 0.721 H* D (0.000-0.034) ng/mL Liver Function 07/29/24 Range/Units 10:13 Total Bilirubin 1.4 H (0.2-1.3) mg/dL AST 74 H (17-59) U/L ALT 60 H (6-50) U/L Alkaline Phosphatase 118 (38-126) U/L Albumin 4.6 (3.5-5.1) g/dL Assessment and Plan Assessment and plan (1) SVT (supraventricular tachycardia): Code(s): I47.10 - Supraventricular tachycardia, unspecified Status: Acute Assessment and Plan: - initial heart rate in the 180s, converted with a modified Valsalva maneuver. Now in normal sinus rhythm with a rate in the 70s. No previous history of SVT. - EKG, initial: SVT, rate 179, borderline left axis deviation, marked ST depression consider subendocardial injury. - EKG, repeat (1): Sinus rhythm, nonspecific ST and T-wave abnormality. When compared to EKG done earlier today, SVT no longer present, ST/T-wave abnormality no longer present. T-wave abnormality now present. - EKG, repeat (2): NSR with occasional PVCs, nonspecific T-wave abnormality present. - Mag 2.2, add TSH and BNP - cardiology consulted, awaiting recs per discussion with ED, hold on heparin gtt - telemetry monitoring and admission to IMU (2) Elevated troponin: Code(s): R79.89 - Other specified abnormal findings of blood chemistry Status: Acute Assessment and Plan: - see above - troponin: 0.014 -> 0.721 -> 1.560. Fourth troponin ordered for 2299. - cardiology consulted, awaiting recs hold on heparin gtt per cards - ASA 324 given, started on 81 mg ASA daily - nitro SL p.r.n. - echo, previous (2019): EF 70% with normal systolic function and grade 1 diastolic dysfunction. See report for details. - telemetry monitoring (3) Type 2 diabetes mellitus: Qualifiers: Diabetes mellitus complication status: without complication Diabetes mellitus retirement insulin use: without retirement use Qualified Code(s): E11.9 - Type 2 diabetes mellitus without complications Code(s): E11.9 - Type 2 diabetes mellitus without complications Status: Acute Assessment and Plan: - hypoglycemia protocol - POC blood glucose ACHS - home medication: Hold Ozempic (NF) - correct regimen ordered - high dose TIDWM, based off BMI - A1C 6.4% on 05/12/2024 (4) Hypertension: Qualifiers: Hypertension type: essential hypertension Qualified Code(s): I10 - Essential (primary) hypertension Code(s): I10 - Essential (primary) hypertension Status: Acute Assessment and Plan: - chronic, currently 157/93 - continue home medications: Losartan-hydrochlorothiazide daily - monitor Plan Diet: Heart healthy GI Prophylaxis: Not currently indicated DVT Prophylaxis: SCDs Lines: Peripheral Code Status: Full code Quality VTE Prophylaxis VTE prophylaxis: mechanical ordered Hospitalist MIPS Advance Care Plan I have confirmed that the patient's Advanced Care Plan is present, code status is documented, or surrogate decision maker is listed in patient medical record.: Yes Medication Reconciliation I have utilized all available resources to obtain, update and review the lavell ents current medications (includes all prescriptions, OTC, herbals, cannabis, and nutritional supplements).: Yes
--- NOTE | 2024-07-29 15:58 | ECG_ITS ---
Test Date: 2024-07-29 16:10:06 Measurements Intervals [place] Rate: 72 P: -29 MI: 169 QRS: -3 QRSD: 81 T: 85 QT: 414 QTc: 456 Interpretive Statements SINUS RHYTHM BORDERLINE AV CONDUCTION DELAY BORDERLINE R WAVE PROGRESSION, ANTERIOR LEADS NONSPECIFIC ST & T-WAVE ABNORMALITY- LAT/HIGH LAT LEADS BASELINE ARTIFACT- I, II, AVR, AVL BORDERLINE ECG Compared to ECG 07/29/2024 13:27:55 No significant changes Electronically Signed On 07-30-2024 06:43:05 CDT by Yoel Poole D.O.
--- NOTE | 2024-07-29 17:38 | PC.NURSE ---
Arrived to the floor via stretcher from the ER. Denies chest pain or shortness of breath. Vital signs obtained. medical lab director placed on and functioning at this time. Alert and oriented. Follows all commands without difficulty. Able to answer all questions without hesitation. Aware of all home medications and dosing. Medication list updated. During conversation with patient and spouse, spouse states that he and she have been under a great deal of stress recently related to some family issues. Furthermore states that his allergies have been bothering him significantly all week long. Complains of a slight headache at this time. Patient spouse asked several questions related to SVT. This RN explained that cardiology had been consulted, discussed plan of care related to hospital stay including but not limited to continuous cardiac monitoring, obtaining vital signs, trending troponin levels until they peak per cardiology protocol and letting the mid level java developer know, EKGs as needed (i.e., as ordered or in the event he should have cardiac rhythm changes to name a few. Verbalizes understanding at this time. No acute distress noted at this time. Ambulated to the bathroom, pt. states I don't feel bad, just a little wobbly . Instructed not to get up and walk without assistance because of potential change in heart rhythm which could cause syncope/pass out, and want to reduce a risk of falls. Verbalizes understanding at this time.
[2024-07-29 20:05] LABS: Glucose Point of Care 187 mg/dl (65-105)
[2024-07-29] MEDS: polyethylene glycoL 3350 17 GM POWD.PACK PO (22:19)
[2024-07-30] VITALS (15 sets, daily range): BP systolic 113–182; BP diastolic 64–93; PULSE 62–74; RESP 18–21; TEMP 36.5–37.1; O2SAT 94–100
--- NOTE | 2024-07-30 | ECHO_ITS ---
Patient Info Name: Campbell Coronado Age: 73 years : 1950 Gender: Male Ht: 68 in Wt: 217 lbs BSA: 2.21 m2 HR: 63 bpm BP: 153 / 82 mmHg Heart Rhythm: Sinus Rhythm Technical Quality: Fair Exam Date: 07/30/2024 3:10 PM Exam Location: Echo Lab Patient Status: Inpatient Admit Date: 07/29/2024 Staff Ordering Physician: Alejandra Michele MD ([email or web address]/aimee) Senior Talent Acquisition Specialist: Sahtya Collier RDCS Attending Provider: Crow Meier MD Referring Physician: Ryne WHITMAN; Exam Type: CA echo doppler color flow Study Info Indications - svt Complete two-dimensional, color flow and Doppler transthoracic echocardiogram is performed. Summary 1. Complete two-dimensional, color flow and Doppler transthoracic echocardiogram is performed. 2. Left ventricular systolic function is normal, estimated at 60-65%. 3. There is mildly increased left ventricular wall thickness. 4. The left ventricular diastolic function is grade I diastolic dysfunction. 5. There is mild aortic valve regurgitation. 6. There is mild aortic valve sclerosis. 7. There is trace tricuspid valve regurgitation. 8. No pulmonary hypertension, estimated pulmonary arterial systolic pressure is 14 mmHg. 9. The prox ascending aorta size is mildly dilated. Measures 3.8cm. 10. The aortic root size at the sinus of Valsalva is borderline dilated. Measures 3.7 cm. Left Ventricle Left ventricular chamber dimension is normal. Left ventricular systolic function is normal, estimated at 60-65%. There is mildly increased left ventricular wall thickness. Left ventricular septal wall motion is normal. The left ventricular diastolic function is grade I diastolic dysfunction. Right Ventricle Right ventricular chamber dimension is normal. Right ventricular systolic function is normal. Left Atria Left atrial chamber dimension is normal. Right Atria Right atrial chamber dimension is normal. Atrial Septum Intact interatrial septum visualized by color flow imaging. Aortic Valve The aortic valve is trileaflet. There is mild aortic valve sclerosis. There is no aortic valve stenosis. There is mild aortic valve regurgitation. Pulmonic Valve The pulmonic valve is normal. There is no pulmonic valve stenosis. There is no pulmonic regurgitation. Mitral Valve The mitral valve has normal leaflets. There is no mitral valve stenosis. There is no mitral valve regurgitation. Tricuspid Valve The tricuspid valve leaflets are normal. There is no significant tricuspid valve stenosis. There is trace tricuspid valve regurgitation. No pulmonary hypertension, estimated pulmonary arterial systolic pressure is 14 mmHg. Pericardium/Pleural The pericardium appears normal. There is no pericardial effusion. Inferior Vena Cava Normal inferior vena cava with >50% collapse upon inspiration consistent with Empty right atrial pressure, 5 mmHg. Aorta The aortic root size at the sinus of Valsalva is borderline dilated. Measures 3.7 cm. The prox ascending aorta size is mildly dilated. Measures 3.8cm. Left Ventricular Outflow Tract Name Value Normal LVOT 2D LVOT Diameter 2.3 cm LVOT Doppler LVOT Peak Gradient 10 mmHg LVOT Mean Gradient 5 mmHg LVOT VTI 25 cm LVOT VTI/AV VTI Ratio 0.9 LVOT Stroke Volume 102 ml LVOT CO 5.7 l/min LVOT CI 2.6 l/min/m2 Pulmonic Valve Name Value Normal PV Doppler PV Peak Gradient 3 mmHg Mitral Valve Name Value Normal MV Doppler MV Decel [place] 138 cm/s2 MV PHT 95 ms MV Area (PHT) 2.3 cm2 4.0-5.0 MV Diastolic Function MV E Peak Velocity 45 cm/s MV A Peak Velocity 100 cm/s MV E/A 0.5 MV Decel Time 327 ms MV Annular TDI MV E/e' (Septal) 10.8 <=8.0 MV E/e' (Lateral) 11.4 <=8.0 MV E/e' (Average) 11.1 Tricuspid Valve Name Value Normal TV Regurgitation Doppler TR Peak Velocity 154 cm/s TR Peak Gradient 9 mmHg Estimated PAP/RSVP RA Pressure 5 mmHg <=5 PA Systolic Pressure 14 mmHg <36 RV Systolic Pressure 14 mmHg <36 Aortic Valve Name Value Normal AV Doppler AV Peak Velocity 139 cm/s AV Peak Gradient 8 mmHg AV Mean Gradient 5 mmHg AV VTI 28 cm AV Area (Cont Eq VTI) 3.7 cm2 >=3.0 AV Area (Cont Eq Samuel) 4.6 cm2 AV Regurgitation 2D LVOT Area 4.1 cm2 AV Regurgitation Doppler AR Decel Time 9,696 ms AR Decel [place] 22 cm/s2 AR PHT 2,812 ms Ventricles Name Value Normal LV Dimensions 2D/MM IVS Diastolic Thickness (2D) 1.2 cm 0.6-1.0 LVID Diastole (2D) 3.0 cm 4.2-5.8 LVIW Diastolic Thickness (2D) 1.0 cm 0.6-1.0 LVID Systole (2D) 2.0 cm 2.5-4.0 LVOT Diameter 2.3 cm LV Mass (2D Cubed) 97.14 g 88.00-224.00 LV Mass Index (2D Cubed) 44 g/m2 49-115 Relative Wall Thickness (2D) 0.69 LV Fractional Shortening/Ejection Fraction 2D/MM LV Fractional Shortening (2D) 33 % 25-43 LV EF (2D Teicholz) 64 % 52-72 LV Diastolic Volume (4C MOD) 103 ml LV EF (4C MOD) 55 % LV Diastolic Volume (2C MOD) 97 ml LV EF (2C MOD) 67 % LV Diastolic Volume (BP MOD) 102 ml 62-150 LV Diastolic Volume Index (BP MOD) 46 ml/m2 34-74 LV Systolic Volume (BP MOD) 39 ml 21-61 LV Systolic Volume Index (BP MOD) 18 ml/m2 11-31 LV EF (BP MOD) 62 % 52-72 LV Diastolic Length (4C) 8.9 cm LV Systolic Length (4C) 7.2 cm LV Stroke Volume (4C MOD) 57 ml Atria Name Value Normal LA Dimensions LA Volume (4C A-L) 17 ml LA Volume (BP A-L) 19 ml RA Dimensions RA Area (4C) 11.3 cm2 <=18.0 Report Signatures
[2024-07-30 05:17] LABS: Basophils Absolute Auto 0.1 K/mm3 (0.0-0.1); Eosinophils Absolute Auto 0.5 K/mm3 (0-0.3); Hematocrit 44.3 % (42.0-52.0); Hemoglobin 15.5 g/dL (14.0-18.0); Immature Granulocyte Absolute 0.13 K/mm3 (0.00-0.031); Immature Granulocyte Percent A 1.5 % (0-0.5); Lymphocytes Absolute Auto 1.23 K/mm3 (0.9-3.2); Lymphocytes Percent Auto 13.7 % (18.3-44.2); Mean Corpuscular Hemoglobin 32.5 pg (26-34); Mean Corpuscular Volume 92.9 fl (80-100); Mean Platelet Volume 8.9 fl (7.4-10.4); Monocytes Absolute Auto 1.3 K/mm3 (0.1-0.6); Monocytes Percent Auto 14.1 % (2.6-8.5); Neutrophils Absolute Auto 5.8 K/mm3 (1.3-6.7); Neutrophils Percent Auto 64.7 % (45.5-73.1); Platelet Count Result 242 k/mm3 (150-375); Red Blood Count 4.77 M/mm3 (4.6-6.20)
[2024-07-30 05:31] LABS: Alanine Aminotransferase 48 U/L (6-50); Albumin Level 4.2 g/dL (3.5-5.1); Alkaline Phosphatase 71 U/L (38-126); Anion Gap 8 mmol/L (4-12); Aspartate Amino Transferase 54 U/L (17-59); Bilirubin,Total 1.5 mg/dL (0.2-1.3); Blood Urea Nitrogen 17 mg/dL (9-20); Calcium 8.4 mg/dL (8.4-10.2); Carbon Dioxide 26 mmol/L (22-30); Chloride 97 mmol/L (98-107); Estimated CRCL calculation 71 ml/min; Estimated Glomerular Filt Rate > 60; Glucose 139 mg/dL (65-110); Potassium 3.8 mmol/L (3.4-5.0); Sodium 131 mmol/L (137-145)
[2024-07-30 05:38] LABS: NT Pro B Type Natriuretic Pept 533 pg/mL (19.9-100)
[2024-07-30 08:34] LABS: Glucose Point of Care 141 mg/dl (65-105)
[2024-07-30] MEDS: ASCORBIC ACID 500 MG TABLET 1000 MG PO (09:13)
[2024-07-30] MEDS: LOSARTAN POTASSIUM 100 MG TABLET PO (09:14)
[2024-07-30] MEDS: ASPIRIN 81 MG CHEWABLE TABLET PO (09:14)
[2024-07-30] MEDS: hydroCHLOROthiazide 12.5 MG CAPSULE PO (09:14)
[2024-07-30] MEDS: LORATADINE 10 MG TABLET PO (09:14)
--- NOTE | 2024-07-30 09:58 | EST_ITS ---
Patient Info Name: Campbell Coronado Age: 73 years : 1950 Gender: Male Ht: 68 in Wt: 217 lbs BSA: 2.21 m2 HR: 65 bpm BP: 160 / 89 mmHg Exam Date: 07/30/2024 11:25 AM Exam Location: Echo Lab Patient Status: Inpatient Admit Date: 07/29/2024 Staff Ordering Physician: Alejandra Michele MD Attending Provider: Crow Meier MD Exercise Technologist: Bre Sigala RDCS Exercise Physician: Alejandra Michele MD Exam Type: CA stress argenis w NM Study Info A regadenoson stress test was performed. Summary 1. No abnormal ST/T wave changes diagnostic of ischemia with Lexiscan. 2. Occasional PVCs. 3. Please correlate with nuclear medicine images, reported separately. 4. Stress test supervised by and interpreted by Alejandra Michele MD. Protocol: Lexiscan Stress ECG Details Stage: REST Duration (min): 2 min : 18 sec HR (bpm): 64 SBP (mmHg): 160 DBP (mmHg): 89 Stage: REST Duration (min): 21 min : 34 sec HR (bpm): 64 SBP (mmHg): 160 DBP (mmHg): 89 Stage: STAGE 1 Duration (min): 0 min : 59 sec HR (bpm): 79 SBP (mmHg): 146 DBP (mmHg): 99 Stage: RECOVERY Duration (min): 1 min : 0 sec HR (bpm): 83 SBP (mmHg): 146 DBP (mmHg): 99 Stage: RECOVERY Duration (min): 2 min : 0 sec HR (bpm): 81 SBP (mmHg): 146 DBP (mmHg): 99 Stage: RECOVERY Duration (min): 3 min : 0 sec HR (bpm): 75 SBP (mmHg): 148 DBP (mmHg): 96 Stage: RECOVERY Duration (min): 3 min : 8 sec HR (bpm): 77 SBP (mmHg): 148 DBP (mmHg): 96 Rest HR: 64 bpm Peak HR: 83 bpm Rest Sys BP: 160 mmHg Peak Sys BP: 148 mmHg Max Pred HR: 145 bpm % Max Pred HR: 57 % Target HR: 123 bpm Max RPP: 12,284 bpm*mmHg Total Time: 1 min : 0 sec Rest Reinoso BP: 89 mmHg Peak Reinoso BP: 96 mmHg Total Dose: 0.4 mg Resting ECG Sinus rhythm. Stress ECG No abnormal ST/T wave changes diagnostic of ischemia with Lexiscan. Arrhythmias Occasional PVCs. Report Signatures
--- NOTE | 2024-07-30 10:07 | PM.CNCAR ---
Assessment and Plan Assessment and plan (1) SVT (supraventricular tachycardia): Code(s): I47.10 - Supraventricular tachycardia, unspecified Status: Acute Assessment and Plan: New diagnosis for the patient. TSH level normal. Echocardiogram ordered and pending. Will start Toprol 50mg once daily. (2) Elevated troponin: Code(s): R79.89 - Other specified abnormal findings of blood chemistry Status: Acute Assessment and Plan: Initial EKG showed SVT with heart rate of 179bpm with diffuse ST depressions. Subsequent EKGs showed normal sinus rhythm with improvement in those ST depressions. He has not had any chest pain at home recently or shortness of breath, but does note recent development of exertional fatigue. Initial troponin was negative, however, troponin became elevated and peaked at 1.560. Given ST depressions on EKG, troponin elevation, symptoms of exertional fatigue, will obtain Lexiscan stress test to evaluate for obstructive CAD. (3) Hypertension: Qualifiers: Hypertension type: essential hypertension Qualified Code(s): I10 - Essential (primary) hypertension Code(s): I10 - Essential (primary) hypertension Status: Acute Assessment and Plan: Stable. Continue home antihypertensive regimen. (4) Hyperlipidemia: Qualifiers: Hyperlipidemia type: other hyperlipidemia Qualified Code(s): E78.49 - Other hyperlipidemia Code(s): E78.5 - Hyperlipidemia, unspecified Status: Acute Assessment and Plan: Not on statin at home. LDL 04/2024 was 84 (5) Type 2 diabetes mellitus: Qualifiers: Diabetes mellitus longterm insulin use: without longterm use Diabetes mellitus complication status: without complication Qualified Code(s): E11.9 - Type 2 diabetes mellitus without complications Code(s): E11.9 - Type 2 diabetes mellitus without complications Status: Acute Assessment and Plan: Management as per primary team. Plan If echocardiogram and nuclear stress test without significant abnormality, then patient can be discharge home later today. Patient has a scientific technical writer at [facility], who he will follow up with after hospital discharge. Recommendations and plan discussed with Hospitalist. History of Present Illness History of Present Illness Consult date/time: 07/30/24 10:07 Requesting physician: Lon Whittaker MD Consult reason: post-op evaluation (SVT, Elevated troponin ) Reason For Visit: SVT/Elevated Troponin Narrative: This is a 73 year old male with hypertension, hyperlipidemia, diabetes, MYLES not on CPAP due to intolerance, gout, prostate cancer s/p prostatectomy who presented to [place] ER for chest pain evaluation. He had sudden onset of a shock like pain on the left side of his face, palpitations, chest pressure. In the ED, he was noted to be in SVT with heart rates in the 180s. Patient converted to normal sinus rhythm with a modified Valsalva maneuver. Initial EKG showed SVT with heart rate of 179bpm with diffuse ST depressions. Subsequent EKGs showed normal sinus rhythm with improvement in those ST depressions. He is feeling better now. He has not had any chest pain at home recently or shortness of breath, but does not exertional fatigue, which has been new. Initial troponin was negative, however, troponin became elevated and peaked at 1.560. TSH level is normal. Review of Systems Review of Systems: All systems reviewed & are unremarkable except as noted in HPI and below (HPI) [facility] Past Medical History Medical History Anxiety Benign prostatic hyperplasia Diastolic murmur Gout Hernia History of pancreatitis Hyperlipidemia Hypertension Obstructive sleep apnea (~10/2020) Squamous cell carcinoma TIA (transient ischemic attack) Type 2 diabetes mellitus Vitamin D deficiency Surgical History Surgical History H/O left knee surgery History of arthroscopy of left knee History of cardiac catheterization July 2011, done at [facility] after an abnormal EKG portion of a stress test with normal myocardial perfusion images. Minimal nonobstructing coronary artery disease was noted. History of surgical removal of squamous cell carcinoma of skin of right muslim History of testicular surgery Family History Family History Mother Carcinoma of colon Patient's mother is Father Patient's father is Other Cerebrovascular accident Hypertension Social History Social History Social History: The patient lives with his in [place]. 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 He designates his , Sharmaine, as his surrogate decision maker and he wishes to be a full code. He denies tobacco and drug use. He drinks 6 ounces of scotch, most nights of the week. Smoking status: Never smoker Second hand tobacco smoke exposure: No Alcohol intake: current Drinks per week: 7 Substance use: never Substance use type: does not use Do You Feel Safe in your Home?: Yes Lack of Transportation: No Lack of Food: Never True Current Housing: I Have Housing Concerned About Future Housing: No Difficulty Paying Gas/Electric Bills: No Difficulty Paying for Meds: No Currently Unemployed: No Education: Trade/Vocational Certificate Difficulty w/ Childcare or Family Care: No Spiritual care concerns: No Agree to blood products: Yes Meds Home Medications and Allergies Home Medications Medication Instructions Recorded Confirmed Type cetirizine 10 mg tablet (Allergy 10 mg PO DAILY 10/08/19 07/29/24 History Relief (cetirizine)) ascorbic acid (vitamin C) 1,000 mg 1 g PO DAILY 11/18/23 07/29/24 History tablet semaglutide 1 mg/dose (4 mg/3 mL) 1 mg (0.75 mL) subcut WEEKLY #3 mL 05/18/24 07/29/24 Rx subcutaneous pen injector (Ozempic) losartan 100 1 tablet PO DAILY #90 tabs 07/05/24 07/29/24 Rx mg-hydrochlorothiazide 12.5 mg tablet polyethylene glycol 3350 17 17 g PO HS 07/29/24 07/29/24 History gram/dose oral powder (Miralax) Allergies Allergy/AdvReac Type Severity Reaction Status Date / Time levofloxacin Allergy Mild Swelling Verified 07/29/24 10:11 Penicillins Allergy Mild Flushing Verified 07/29/24 10:11 Sulfa (Sulfonamide Allergy Mild swelling Verified 07/29/24 10:11 Antibiotics) Vital Signs Vital Signs - 24 hr 07/29/24 12:10 07/29/24 13:35 07/29/24 16:22 Temperature Pulse Rate 102 H 76 77 Respiratory Rate 18 16 18 Blood Pressure 131/71 157/93 H 140/90 Pulse Oximetry 94 94 96 Oxygen Delivery 07/29/24 18:00 07/29/24 16:40 07/29/24 19:48 Temperature 36.5 C 36.7 C Pulse Rate 83 75 73 Respiratory Rate 18 18 Blood Pressure 132/96 H 138/77 Pulse Oximetry 97 96 Oxygen Delivery 07/29/24 20:00 07/29/24 20:00 07/29/24 22:00 Temperature Pulse Rate 77 73 Respiratory Rate Blood Pressure Pulse Oximetry Oxygen Delivery Room Air 07/30/24 00:51 07/30/24 00:00 07/30/24 00:00 Temperature 37.1 C Pulse Rate 66 74 Respiratory Rate 18 Blood Pressure 146/83 H Pulse Oximetry 94 Oxygen Delivery Room Air 07/30/24 02:00 07/30/24 03:59 07/30/24 04:00 Temperature 36.8 C Pulse Rate 65 66 Respiratory Rate 18 Blood Pressure 129/79 Pulse Oximetry 96 Oxygen Delivery Room Air 07/30/24 04:00 07/30/24 06:00 07/30/24 08:24 Temperature 36.7 C Pulse Rate 67 63 63 Respiratory Rate 18 Blood Pressure 153/82 H Pulse Oximetry 100 Oxygen Delivery Exam Const: General: comfortable and no acute distress HENMT: Mouth: Yes moist mucous membranes Eyes: General: appearance normal, both eyes and all related structures Sclera: sclerae normal Resp: Effort & Inspection: normal respiratory effort Auscultation: clear to auscultation bilaterally Cardio: Rate: regular rate Rhythm: regular rhythm Heart sounds: no murmurs Skin: General skin exam: normal color Neuro: Speech: normal speech Psych: Mental Status: mental status grossly normal Affect: normal affect Results Labs and Meds 07/30/24 04:56 07/30/24 04:56 Lab results: Cardiac Enzymes 07/29/24 07/29/24 07/29/24 Range/Units 10:13 13:01 16:17 AST 74 H (17-59) U/L Troponin I 0.014 0.721 H* D 1.560 H* D (0.000-0.034) ng/mL 07/29/24 07/30/24 Range/Units 23:15 04:56 AST 54 (17-59) U/L Troponin I 1.390 H* (0.000-0.034) ng/mL Coagulation 07/29/24 Range/Units 10:12 PT 13.4 (11.1-14.7) Seconds APTT 25.8 (22.3-36.8) Seconds CBC 07/29/24 07/30/24 Range/Units 10:12 04:56 WBC 12.1 H 9.0 (4.5-10.0) K/mm3 RBC 5.20 4.77 (4.6-6.20) M/mm3 Hgb 17.4 D 15.5 (14.0-18.0) g/dL Hct 48.2 44.3 (42.0-52.0) % Plt Count 289 242 (150-375) k/mm3 Lymph # (Auto) 1.37 1.23 (0.9-3.2) K/mm3 [place] # (Auto) 1.3 H 1.3 H (0.1-0.6) K/mm3 Eos # (Auto) 0.4 H 0.5 H (0-0.3) K/mm3 Baso # (Auto) 0.1 0.1 (0.0-0.1) K/mm3 Comprehensive Metabolic Panel 07/29/24 07/30/24 Range/Units 10:13 04:56 Sodium 134 L 131 L (137-145) mmol/L Potassium 3.7 3.8 (3.4-5.0) mmol/L Chloride 93 L 97 L (98-107) mmol/L Carbon Dioxide 31 H 26 (22-30) mmol/L BUN 15 17 (9-20) mg/dL Creatinine 1.00 0.90 (0.7-1.3) mg/dL Glucose 220 H 139 H (65-110) mg/dL Calcium 8.8 8.4 (8.4-10.2) mg/dL AST 74 H 54 (17-59) U/L ALT 60 H 48 (6-50) U/L Alkaline Phosphatase 118 71 (38-126) U/L Total Protein 8.0 8.0 (6.3-8.2) g/dL Albumin 4.6 4.2 (3.5-5.1) g/dL Intake and Output 07/29/24 07/30/24 07/30/24 23:59 07:59 15:59 Intake Total 320 550 240 Output Total 775 Balance 320 -225 240 Intake: Oral 320 550 240 Output: Urine 775 Patient Weight 07/30/24 23:59 Weight 98.6 kg
[2024-07-30] MEDS: METOPROLOL SUCCINATE EXT REL 50 MG TABCR PO (13:25)
[2024-07-30 13:51] LABS: Glucose Point of Care 179 mg/dl (65-105)
--- NOTE | 2024-07-30 14:40 | P.DS_ITS ---
DS: Admitting Diagnosis Discharge Date 07/30/2024 Admitting Diagnosis chest pain DS: Discharge Diagnosis Discharge Diagnosis (1) SVT (supraventricular tachycardia): Code(s): I47.10 - Supraventricular tachycardia, unspecified Status: Acute (2) Elevated troponin: Code(s): R79.89 - Other specified abnormal findings of blood chemistry Status: Acute (3) Type 2 diabetes mellitus: Qualifiers: Diabetes mellitus complication status: without complication Diabetes mellitus group home insulin use: without literacy consultant use Qualified Code(s): E11.9 - Type 2 diabetes mellitus without complications Code(s): E11.9 - Type 2 diabetes mellitus without complications Status: Acute (4) Hypertension: Qualifiers: Hypertension type: essential hypertension Qualified Code(s): I10 - Essential (primary) hypertension Code(s): I10 - Essential (primary) hypertension Status: Acute DS: Summary Hospital Course Hospital Course: 73 y/o M who presents with chest pain and palpitations with PMH of gout, pancreatitis, HLD, HTN, MYLES not on CPAP due to intolerance, squamous cell carcinoma s/p excision, diabetes, prostate cancer s/p prostatectomy, and vitamin-D deficiency. The patient presents here from home with palpitations and chest pain. He reports onset at around 08:00 a.m. He also had a strange sensation that crept over neck and head on the left side and felt like a brain freeze which quickly resolved. Which was constant for 1 hour prior to arrival. He further described the chest pain as tight, pressure-like, nonradiating, constant, and no aggravating or alleviating factors. Endorsed associated lightheadedness, diaphoresis, increased belching. Denies nausea, shortness of breath, or dizziness. Upon arrival, manager monitoring showed SVT with a rate of 180. Patient was converted into normal sinus rhythm with a modified Valsalva maneuver. Upon spiritism of NSR, patient reports resolution of chest pressure and palpitations. He does report proceeding generalized fatigue that is exacerbated by exertion over the last 6 months. He reports no further recurrent chest pain, lightheadedness, dizziness, or palpitations. No hx of SVT. Initial VS at presentation: 97.6? F, HR 180, RR 19, 130/79, and 96% on RA. ED workup showed: WBC 12.1, hemoglobin 17.4, normal coags, sodium 134, creatinine 1.0 and GFR >60, glucose 220, initial troponin 0.014 and 2nd troponin 0.721. CXR showed no acute cardiopulmonary disease. Initial EKG showed SVT with a heart rate of 179, borderline left axis deviation, marked ST depression consider subendocardial injury. Patient is started on beta-arianne. TSH normal magnesium normal. Cardiology was consulted. Serial troponin did elevate from 0.26532.7-1 to 1.560. Cardiology suspects it is to be related to SVT. Lexiscan was performed subsequently on 07/30/2020 for which was normal at rest and stress. Echo was also performed during the hospital stay which will be reviewed as an outpatient basis. He follows up with materials management manager at [facility] and is recommended to do so after discharge. Time Spent with Patient Time attestation: Total time spent providing and/or coordinating discharge services: 35 minutes Exam Narrative: APPEARANCE: Well appearing, no pain, no distress, well-nourished. HEAD: normocephalic, atraumatic. EYES: PERRLA/EOMI, conjunctivae clear. NOSE: Normal no drainage NECK: Supple. No adenopathy, no masses. RESPIRATORY: Airway patent, respirations nonlabored. Clear to auscultation bilaterally, no rales, rhonchi, wheezing. CARDIOVASCULAR: Regular rate and rhythm without murmurs rubs or gallops. ABDOMINAL: Soft, nontender, nondistended, normal bowel sounds MUSCULOSKELETAL: Moves all extremities. Strength/ROM intact, No edema, No calf tenderness. NEURO: Alert. Cranial nerves II through XII intact. Grossly intact SKIN: Warm, dry. Normal Color DS: Data Data Completed and Pending Labs on day of discharge: Labs from last 24 hours 07/30/24 07/30/24 07/30/24 13:24 07:43 04:56 WBC 9.0 RBC 4.77 Hgb 15.5 Hct 44.3 MCV 92.9 MCH 32.5 MCHC 35.0 RDW 13.0 Plt Count 242 MPV 8.9 Immature Gran % (Auto) 1.5 H Neut % (Auto) 64.7 Lymph % (Auto) 13.7 L [place] % (Auto) 14.1 H Eos % (Auto) 5.0 H Baso % (Auto) 1.0 Lymph # (Auto) 1.23 [place] # (Auto) 1.3 H Eos # (Auto) 0.5 H Baso # (Auto) 0.1 Abs Immat Gran (auto) 0.13 H Absolute Neuts (auto) 5.8 Absolute Nucleated RBC 0.000 Nucleated RBC % 0.0 Sodium 131 L Potassium 3.8 Chloride 97 L Carbon Dioxide 26 Anion Gap 8 BUN 17 Creatinine 0.90 Estim Creat Clear Calc 71 Estimated GFR > 60 Glucose 139 H POC Capillary Glucose 179 H 141 H Calcium 8.4 Total Bilirubin 1.5 H AST 54 ALT 48 Alkaline Phosphatase 71 Troponin I NT-Pro-B Natriuret Pep 533 H Total Protein 8.0 Albumin 4.2 TSH (Reflex) 3.770 07/29/24 07/29/24 07/29/24 23:15 19:51 16:17 WBC RBC Hgb Hct MCV MCH MCHC RDW Plt Count MPV Immature Gran % (Auto) Neut % (Auto) Lymph % (Auto) [place] % (Auto) Eos % (Auto) Baso % (Auto) Lymph # (Auto) [place] # (Auto) Eos # (Auto) Baso # (Auto) Abs Immat Gran (auto) Absolute Neuts (auto) Absolute Nucleated RBC Nucleated RBC % Sodium Potassium Chloride Carbon Dioxide Anion Gap BUN Creatinine Estim Creat Clear Calc Estimated GFR Glucose POC Capillary Glucose 187 H Calcium Total Bilirubin AST ALT Alkaline Phosphatase Troponin I 1.390 H* 1.560 H* D NT-Pro-B Natriuret Pep Total Protein Albumin TSH (Reflex) Imaging Radiologist's impression: ITS Impressions Chest X-Ray 07/29/24 10:48 IMPRESSION: 1. No acute cardiopulmonary disease. Lexiscan Stress Test 07/30/24 13:30 IMPRESSION: 1. Normal myocardial perfusion at rest and during stress. 2. Left ventricular ejection fraction measuring 65%. ITS Impressions Chest X-Ray 07/29/24 10:48 IMPRESSION: 1. No acute cardiopulmonary disease. Lexiscan Stress Test 07/30/24 13:30 IMPRESSION: 1. Normal myocardial perfusion at rest and during stress. 2. Left ventricular ejection fraction measuring 65%. Discharge Plan Discharge Attending physician on discharge: Crow Meier Consulting providers: Emi Garza Discharging Clinician: Crow Meier Anticipated Discharge Date/Time: 07/30/24 14:38 Patient Disposition: Home, Self-Care Activity: as tolerated Diet: heart healthy Patient Instructions: Antibiotic Form Stand Alone Forms: General Discharge Information Follow-up/Referrals: Emi Garza APNAleksander [Advanced Practice Nurse] - 2 Weeks Soy Juan DO [Primary Care Provider] - 1 Week Discharge Medications: New aspirin [Children's Aspirin] 81 mg Tablet,Chewable 81 mg PO DAILY@0800 Qty: 30 0RF metoprolol succinate 50 mg Tablet Extended Release 24 Hr 50 mg PO QAM Qty: 30 0RF Continued cetirizine [Allergy Relief (cetirizine)] 10 mg tablet 10 mg PO DAILY ascorbic acid (vitamin C) 1,000 mg tablet 1 g PO DAILY Ozempic 1 mg/dose (4 mg/3 mL) pen injector 1 mg subcut WEEKLY Qty: 3 5RF polyethylene glycol 3350 [Miralax] 17 gram/dose Powder 17 g PO HS losartan-hydrochlorothiazide 100-12.5 mg tablet 1 tablet PO DAILY Qty: 90 3RF Date of admission: 07/29/24 14:14 Primary Care Provider: Soy Juan Admitting Provider: Crow Meier Attending physician on admission: Crow Meier Condition: Improved
[2024-07-30 18:09] LABS: Glucose Point of Care 198 mg/dl (65-105)
== END 2024-07-30 17:30 | disposition home or self-care (01) ==
LOC: ANHED 14:00 → ANHIMU 15:59
PROVIDERS: Nurse Practitioner; Student in an Organized Health Care Education/Training Program; Admitting Provider Internal Medicine; Emergency Provider Emergency Medicine; PCP Internal Medicine; Visit Provider Internal Medicine
DX: I47.10 Supraventricular tachycardia, unspecified (principal); R79.89 Other specified abnormal findings of blood chemistry; E11.9 Type 2 diabetes mellitus without complications; I10 Essential (primary) hypertension; M10.9 Gout, unspecified; E78.5 Hyperlipidemia, unspecified; G47.33 Obstructive sleep apnea (adult) (pediatric); E55.9 Vitamin D deficiency, unspecified; N40.0 Benign prostatic hyperplasia without lower urinary tract symptoms; Z79.85 Long-term (current) use of injectable non-insulin antidiabetic drugs; Z79.899 Other long term (current) drug therapy; Z85.46 Personal history of malignant neoplasm of prostate; Z85.828 Personal history of other malignant neoplasm of skin; Z86.73 Personal history of transient ischemic attack (TIA), and cerebral infarction without residual deficits
CPT/HCPCS: 36415; 71046; 78452; 80053; 82948; 83690; 83735; 83880; 84443; 84484; 85025; 85610; 85730; 93005; 93017; 93306; 99285; A9270; A9502; G0378; J2785

== ENCOUNTER 2024-08-07 15:02 | Emergency (ER) | payer MEDICARE, SELFPAY ==
--- NOTE | ~2024-08-07 | US_ITS ---
EXAMINATION: US venous doppler [facility] DATE: 08/07/2024 15:41 INDICATION: pain, redness, swelling . TECHNIQUE: Grayscale images without and with compression and Doppler images of the left lower extremi ty veins were obtained. COMPARISON: 10/22/2019 FINDINGS: The left common femoral vein, profunda (deep) femoral vein, femoral vein, popliteal vein, peroneal v ein, posterior tibial veins, and greater saphenous vein are patent. IMPRESSION: Patent left lower extremity veins. No evidence of deep venous thrombosis. Reviewed, dictated and finalized at location K. [facility] OFFICE SUPERVISOR
--- NOTE | ~2024-08-07 | XR_ITS ---
EXAM: XR ankle LT min 3V DATE: 08/07/2024 16:06 HISTORY: left ankle pain, swelling SINCE 08/02, RECENT HOSPITAL STAY . COMPARISON: None available. FINDINGS: Normal mineralization. No fracture or dislocation. No lytic or blastic lesion. Scattered d egenerative changes. Plantar and Achilles enthesopathy. No erosion or periosteal change. Scattered va scular calcifications. IMPRESSION: No acute osseous finding in the left ankle. Reviewed, dictated and finalized at location K. E LABORER
[2024-08-07 15:08] VITALS: BP 158/74; PULSE 62; RESP 16; TEMP 36.1; O2SAT 99
--- NOTE | 2024-08-07 15:20 | ED_ITS ---
HPI - Extremity Problem General Chief complaint: Extremity Problem,Nontraumatic Stated complaint: DVT? Time Seen by Provider: 08/07/24 15:12 Source: patient Mode of arrival: ambulatory Limitations: no limitations History of Present Illness HPI Narrative: this is a 73-year-old male that presents to the emergency department for left ankle pain. Ongoing over the last 5 days. No known injury or trauma. Reports the left inner ankle is painful and swollen, tender to touch. He does report history of gout. Was recently hospitalized and was concerned for possible DVT which prompted in to be seen. Denies fevers or erythema. Related Data Home Medications Medication Instructions Recorded Confirmed cetirizine 10 mg tablet (Allergy 10 mg PO DAILY 10/08/19 07/29/24 Relief (cetirizine)) ascorbic acid (vitamin C) 1,000 mg 1 g PO DAILY 11/18/23 07/29/24 tablet polyethylene glycol 3350 17 17 g PO HS 07/29/24 07/29/24 gram/dose oral powder (Miralax) Allergies Allergy/AdvReac Type Severity Reaction Status Date / Time levofloxacin Allergy Mild Swelling Verified 08/07/24 15:32 Penicillins Allergy Mild Flushing Verified 08/07/24 15:32 Sulfa (Sulfonamide Allergy Mild swelling Verified 08/07/24 15:32 Antibiotics) Review of Systems Review of Systems: CONSTITUTIONAL: Denies fever SKIN: Denies rash MUSCULOSKELETAL: Reports joint pain, and myalgia. NEUROLOGIC: Denies numbness, or weakness. All systems reviewed & are unremarkable except as noted in HPI and below PMFSH Past Medical History Medical History Anxiety Benign prostatic hyperplasia Diastolic murmur Gout Hernia History of pancreatitis Hyperlipidemia Hypertension Obstructive sleep apnea (~10/2020) Squamous cell carcinoma TIA (transient ischemic attack) Type 2 diabetes mellitus Vitamin D deficiency Surgical History Surgical History H/O left knee surgery History of arthroscopy of left knee History of cardiac catheterization July 2011, done at [facility] after an abnormal EKG portion of a stress test with normal myocardial perfusion images. Minimal nonobstructing coronary artery disease was noted. History of surgical removal of squamous cell carcinoma of skin of right restoration History of testicular surgery Family History Family History Mother Carcinoma of colon Patient's mother is Father Patient's father is Other Cerebrovascular accident Hypertension Social History Social History Social History: The patient lives with his in [place]. 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 He designates his , Sharmaine, as his surrogate decision maker and he wishes to be a full code. He denies tobacco and drug use. He drinks 6 ounces of scotch, most nights of the week. Smoking status: Never smoker Second hand tobacco smoke exposure: No Alcohol intake: current Drinks per week: 7 Substance use: never Substance use type: does not use Do You Feel Safe in your Home?: Yes Lack of Transportation: No Lack of Food: Never True Current Housing: I Have Housing Concerned About Future Housing: No Difficulty Paying Gas/Electric Bills: No Difficulty Paying for Meds: No Currently Unemployed: No Education: Trade/Vocational Certificate Difficulty w/ Childcare or Family Care: No Spiritual care concerns: No Agree to blood products: Yes Exam Narrative: GENERAL: Well-appearing, well-nourished, and in no acute distress. HEAD: Normocephalic, atraumatic. EYES: EOMI. CHEST: No respiratory distress. HEART: Regular rate EXTREMITIES: Normal range of motion. No erythema. Mild swelling about the medial malleolus. Normal DP pulse. Normal sensation SKIN: Warm, dry, no rash. NEURO: No focal deficits. Alert and oriented x3. PSYCH: Normal mood and affect Course Course Emergency Course: patient updated on his workup and agrees with plan of care Vital Signs Vital signs: Vital Signs Temperature 97 F L 08/07/24 15:08 Pulse Rate 62 08/07/24 15:08 Respiratory Rate 16 08/07/24 15:08 Blood Pressure 158/74 H 08/07/24 15:08 Pulse Oximetry 99 08/07/24 15:08 Temperature 97 F L 08/07/24 15:08 Pulse Rate 62 08/07/24 15:08 Respiratory Rate 16 08/07/24 15:08 Blood Pressure 158/74 H 08/07/24 15:08 Pulse Oximetry 99 08/07/24 15:08 MDM - Extremity (Nontraumatic) MDM Narrative Medical decision making narrative: Patient presents to the emergency department left ankle pain and swelling. Ongoing over the last 5 days. He is afebrile and nontoxic appearing. No notable erythema of the ankle. He has normal range of motion in the ankle. Normal peripheral pulse. Cbc without leukocytosis. Inflammatory markers are mildly elevated. Ultrasound venous Doppler without evidence of DVT. Left ankle x-ray without acute osseous abnormalities. Patient does report history of gout. Will treat patient for gout flare with indomethacin and colchicine. Patient updated on his workup and agrees with plan of care. He is to follow up with his primary provider. He was given warnings to return to the ER Differential Diagnosis Differential diagnosis: Likely gout, superficial thrombophlebitis, deep vein thrombosis of lower extremity and other ( tendinitis, osteoarthritis) Lab Data Attestation: I reviewed the patient's lab results. 08/07/24 15:37 08/07/24 15:37 Labs: Lab Results 08/07/24 Range/Units 15:37 WBC 8.0 (4.5-10.0) K/mm3 RBC 4.61 (4.6-6.20) M/mm3 Hgb 15.3 (14.0-18.0) g/dL Hct 42.4 (42.0-52.0) % MCV 92.0 (80-100) fl MCH 33.2 (26-34) pg MCHC 36.1 H (32-36) g/dl RDW 12.5 (11.5-14.5) % Plt Count 276 (150-375) k/mm3 MPV 8.8 (7.4-10.4) fl Immature Gran % (Auto) 1.5 H (0-0.5) % Neut % (Auto) 60.6 (45.5-73.1) % Lymph % (Auto) 16.3 L (18.3-44.2) % [place] % (Auto) 15.1 H (2.6-8.5) % Eos % (Auto) 5.4 H (0-4.4) % Baso % (Auto) 1.1 (0.2-1.2) % Lymph # (Auto) 1.31 (0.9-3.2) K/mm3 [place] # (Auto) 1.2 H (0.1-0.6) K/mm3 Eos # (Auto) 0.4 H (0-0.3) K/mm3 Baso # (Auto) 0.1 (0.0-0.1) K/mm3 Abs Immat Gran (auto) 0.12 H (0.00-0.031) K/mm3 Absolute Neuts (auto) 4.9 (1.3-6.7) K/mm3 Absolute Nucleated RBC 0.000 (0.0-0.012) K/mm3 Nucleated RBC % 0.0 (0.0-0.2) % ESR 39 H (0-20) mm/hr Sodium 132 L (137-145) mmol/L Potassium 4.1 (3.4-5.0) mmol/L Chloride 99 (98-107) mmol/L Carbon Dioxide 24 (22-30) mmol/L Anion Gap 9 (4-12) mmol/L BUN 15 (9-20) mg/dL Creatinine 0.90 (0.7-1.3) mg/dL Estim Creat Clear Calc 70 ml/min Estimated GFR > 60 (59 - ) Glucose 122 H (65-110) mg/dL Uric Acid 6.8 (3.5-8.5) mg/dL Calcium 9.2 (8.4-10.2) mg/dL C-Reactive Protein 1.9 H (<1.0) mg/dL Imaging Data Radiologist's impression: ITS Impressions Venous Doppler Study 08/07/24 16:20 IMPRESSION: Patent left lower extremity veins. No evidence of deep venous thrombosis. Ankle X-Ray 08/07/24 16:32 IMPRESSION: No acute osseous finding in the left ankle. Critical Care Time Critical Care Time Critical Care Time: No Discharge Plan Discharge Clinical Impression: Gout flare Qualifiers: Gout site: ankle Gout etiology: unspecified cause Laterality: left Qualified Code(s): M10.9 - Gout, unspecified Patient Disposition: Home, Self-Care Condition: Stable Instructions: Gout (ED) Additional Instructions: Return to the ER if you experience fever, redness and swelling of your extremity, numbness or any other symptoms that are concerning to you Take additional dose of colchicine when you receive it, then daily thereafter. Anti-inflammatory ( indomethacin) as prescribed Follow up with your primary care doctor for further care. Prescriptions: New indomethacin 50 mg capsule 50 mg PO TID 5 Days Qty: 15 0RF Rx Instructions: administer with food or milk colchicine 0.6 mg capsule 0.6 mg PO DAILY 6 Days Qty: 6 0RF Rx Instructions: Take first dose when received, then daily thereafter No Action cetirizine [Allergy Relief (cetirizine)] 10 mg tablet 10 mg PO DAILY ascorbic acid (vitamin C) 1,000 mg tablet 1 g PO DAILY Ozempic 1 mg/dose (4 mg/3 mL) pen injector 1 mg subcut WEEKLY Qty: 3 5RF polyethylene glycol 3350 [Miralax] 17 gram/dose Powder 17 g PO HS aspirin [Children's Aspirin] 81 mg Tablet,Chewable 81 mg PO DAILY@0800 Qty: 30 0RF metoprolol succinate 50 mg Tablet Extended Release 24 Hr 50 mg PO QAM Qty: 30 0RF losartan-hydrochlorothiazide 100-12.5 mg tablet 1 tablet PO DAILY Qty: 90 3RF Follow-up/Referrals: Soy Juan DO [Primary Care Provider] -
[2024-08-07] MEDS: INDOMETHACIN 25 MG CAPSULE 50 MG PO (15:32)
[2024-08-07 15:42] LABS: Basophils Absolute Auto 0.1 K/mm3 (0.0-0.1); Basophils Percent Auto 1.1 % (0.2-1.2); Eosinophils Absolute Auto 0.4 K/mm3 (0-0.3); Eosinophils Percent Auto 5.4 % (0-4.4); Hematocrit 42.4 % (42.0-52.0); Hemoglobin 15.3 g/dL (14.0-18.0); Immature Granulocyte Absolute 0.12 K/mm3 (0.00-0.031); Immature Granulocyte Percent A 1.5 % (0-0.5); Lymphocytes Absolute Auto 1.31 K/mm3 (0.9-3.2); Lymphocytes Percent Auto 16.3 % (18.3-44.2); Mean Corpuscular HGB Conc 36.1 g/dl (32-36); Mean Corpuscular Hemoglobin 33.2 pg (26-34); Mean Platelet Volume 8.8 fl (7.4-10.4); Monocytes Absolute Auto 1.2 K/mm3 (0.1-0.6); Monocytes Percent Auto 15.1 % (2.6-8.5); Neutrophils Absolute Auto 4.9 K/mm3 (1.3-6.7); Neutrophils Percent Auto 60.6 % (45.5-73.1); Platelet Count Result 276 k/mm3 (150-375); Red Blood Count 4.61 M/mm3 (4.6-6.20); Red Cell Distribution Width 12.5 % (11.5-14.5)
[2024-08-07 16:01] LABS: Anion Gap 9 mmol/L (4-12); Blood Urea Nitrogen 15 mg/dL (9-20); CRP 1.9 mg/dL (<1.0); Calcium 9.2 mg/dL (8.4-10.2); Carbon Dioxide 24 mmol/L (22-30); Chloride 99 mmol/L (98-107); Estimated CRCL calculation 70 ml/min; Estimated Glomerular Filt Rate > 60; Glucose 122 mg/dL (65-110); Potassium 4.1 mmol/L (3.4-5.0); Sodium 132 mmol/L (137-145); Uric Acid 6.8 mg/dL (3.5-8.5)
[2024-08-07 16:10] LABS: Erythrocyte Sedimentation Rate 39 mm/hr (0-20)
[2024-08-07] MEDS: COLCHICINE 0.6 MG TABLET 1.2 MG PO (17:07)
== END 2024-08-07 17:47 | disposition home or self-care (01) ==
PROVIDERS: Emergency Provider Physician Assistant; PCP Internal Medicine
DX: M10.9 Gout, unspecified (principal); M79.605 Pain in left leg; I10 Essential (primary) hypertension; E78.5 Hyperlipidemia, unspecified; E11.9 Type 2 diabetes mellitus without complications; E55.9 Vitamin D deficiency, unspecified; N40.0 Benign prostatic hyperplasia without lower urinary tract symptoms; G47.33 Obstructive sleep apnea (adult) (pediatric); Z85.828 Personal history of other malignant neoplasm of skin; Z86.73 Personal history of transient ischemic attack (TIA), and cerebral infarction without residual deficits; Z79.82 Long term (current) use of aspirin; Z79.85 Long-term (current) use of injectable non-insulin antidiabetic drugs; Z79.899 Other long term (current) drug therapy
CPT/HCPCS: 36415; 73610; 80048; 84550; 85025; 85652; 86140; 93971; 99284; A9270

== ENCOUNTER 2024-10-15 15:38 | Outpatient (CLI) | payer MEDICARE, SELFPAY ==
--- NOTE | ~2024-10-15 | XR_ITS ---
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 RESULT: Lines, tubes, and devices: None. Lungs and pleura: Clear. Granulomatous calcification. Cardiomediastinal silhouette: Stable. Calcified lymph nodes. Other: No acute osseous or upper abdominal finding. IMPRESSION: No acute cardiopulmonary process. Reviewed, dictated and finalized at location K. [employer] BOOKING OFFICER
--- OUTSIDE RECORDS SUMMARY | 2024-10-21 07:15 | XMS_ITS | Data Portability ---
Author Organization [facility], Main Office Address [address] [facility] [address] [place] [address] Care Team Providers Care Placement Officer Name Role Phone RAMAN GOLDMAN Primary Care Provider Assessment No assessment recorded. Plan of Treatment Reminders Order Date Submit Date Provider Last Modified By Organization Details Last Modified Time Details Appointments None record ed. Lab None record ed. Referral None record ed. Procedures None record ed. Surgeries None record ed. Imaging None record ed. Medication Orders None record ed. Patient TargetsNo targets recorded. Patient Instructions Encounter Date Encounter Id Patient Instructions Last Modified By Organization Details Last Modified Time 08/14/2017 [id number] ? Patient counseled to F/U immediately if temp. greater than 100.4, if is unable to urinate, increased rectal pain or any other concerns. Not available 08/14/2017 13:11:01 Follow up in 2 - 3 weeks and I will treat the RA. I discussed with him again he will be a total of 5 - 6 treatments. Not available 08/15/2017 11:11:06 09/04/2017 [id number] ? Patient counseled to F/U immediately if temp. greater than 100.4, if is unable to urinate, increased rectal pain or any other concerns. Not available 09/04/2017 14:50:09 Follow up in 3 - 4 weeks and I will retreat the RP. He will probably be a total of 6 treatments. Not available 09/06/2017 13:53:08 10/09/2017 1920 Patient counsele d to F/U immediately if temp. greater than 100.4, if is unable to urinate, increased rectal pain or any other concerns. Not available 10/10/2017 15:51:53 He will follow u p October 27 or after and I will retreat his LL and possibly the RA. He will then get his colonoscopy and also has a trip to [place] at the end of November so he will wait until after that and we will do a 6th treatment. Not available 10/09/2017 14:34:53 11/06/2017 2203 Patient counsele d to F/U immediately if temp. greater than 100.4, if is unable to urinate, increased rectal pain or any other concerns. Not available 11/06/2017 13:16:23 He will follow u p shortly after his colonoscopy and we will do another treatment, maybe two more. I discussed with him at some point we will need to stop treating and just see how he does. Not available 11/06/2017 18:56:24 02/05/2018 [id number] He will follow u p with me if and when (probably when) his symptoms return. Not available 02/05/2018 22:42:02 Reason for Referral None Reported. Problems Name Problem SNOMED Code Status Onset Date Resolution Date Notes Provider Name and Address Organization Details Recorded Time Pile easily reducible 658300956 Active 2016 Tx #1: 7 1.2 x 11 RP 7 - No Tx - discom fort/r elucta nce on my part Tx #2: 1.2 x 10 LL Tx #3: 7 1.1 x 6 RA Tx #4: 8 1.2 x 10 RP Tx #5: 11/06/17 1.2 x 10 LL 8: No Tx - doing great/ no need Jaja Walker MD [address] [facility] [address], [place], [address], [facility] 8 22:36:16 External hemorrhoids 01399469 Active 2016 Jaja Walker MD [address] [facility] [address], [place], [address], [facility] 7 19:38:07 Constipation 89501628 Active 2016 Jaja Walker MD [address] [place] [address],[address], [place], [address], [facility] 7 19:38:23 History of transient ischemic attack 304851050 Active 2016 Jaja Walker MD [address] [place] [address],[address], [place], [address], [facility] 7 19:39:14 Screening for malignant neoplasm of colon Active 2017 Jaja Walker MD [address] [place] [address],[address], [place], [address], [facility] 8 13:16:06 Problem Notes None recorded. Procedures Surgical History Date Name Laterality Status Provider Name and Address Organization Details Recorded Time 8 IRC completed Jaja Walker MD [address] [place] [address],[address], [place], [address], [facility] 11/06/2017 13:35:15 8 IRC completed Jaja Walker MD [address] [place] [address],[address], [place], [address], [facility] 10/10/2017 15:51:11 7 IRC completed Jaja Walker MD [address] [place] [address],[address], [place], [address], [facility] 09/06/2017 13:52:00 7 IRC completed Jaja Walker MD [address] [place] [address],[address], [place], [address], [facility] 08/15/2017 11:10:12 7 IRC completed Jaja Walker MD [address] [place] [address],[address], [place], [address], [facility] 07/30/2017 19:37:21 3 Colonoscopy completed Jaja Walker MD [address] [facility],[address], [place], [address], [facility] 07/30/2017 19:35:15 Imaging Results None recorded. Procedure Notes None recorded. Medical Equipment None Reported. Allergies Allergen ID Allergen Name Allergen Category Reaction Reaction Severity Criticality Documentation Date Start Date Code Code System Note Provider Name and Address Organization Details Recorded Time [id number] 35c0f Product containin g penicilli n and antibioti c (product) medicatio n rash Not available Not available 07/30/2017 96725 05 SNOMED Not Available Not Available Not Available [id number] 35c0f Substance with sulfonami de structure and antibacte rial mechanism of action (substanc e) medicatio n rash Not available Not available 07/30/2017 96294 8003 SNOMED Not Available Not Available Not Available [id number] 29b50 Levaquin medicatio n other Not available Not available 07/30/2017 34964 2 RxNorm Feet swell Not Available Not Available Not Available Medications Name Sig Start Date Stop Date Status Note LastModified by Organization Details LastModified Time cefprozil 500 mg tablet active Not Available Not Available Not Available cefuroxim e axetil 250 mg tablet 07/30 completed Not Available Not Available Not Available losartan 100 mg-hydroc hlorothia zide 25 mg tablet active Not Available Not Available No t Available terbinafi ne HCl 250 mg tablet 07/30 completed Not Available Not Available Not Available tamsulosi n 0.4 mg capsule active Not Available Not Available Not Available erythromy izzy 5 mg/gram (0.5 %) eye ointment 07/30 completed Not Available Not Available Not Available monteluka st 10 mg tablet active Not Available Not Available Not Available ketoconaz ole 2 % topical cream active Not Available Not Available Not Available Layne Low Strength 81 mg tablet,de layed release Take 1 tablet every day by oral route. active He has been off for 2 days and denies any other aspirin products Not Available Not Available Not Available Vitamin B-1 active Not Available Not Available Not Available Zyrtec active Not Available Not Availa ble Not Available Vitals Date Recorded Body height Provider Name an d Address Organization Details Last Updated DateTime 02/05/2018 172.72 cm My Ramirez [facility] 02/05/2018 13:08:25 Date Recorded Body height Provider Name an d Address Organization Details Last Updated DateTime 08/14/2017 172.72 cm Nancy Timmons [facility] 08/14/2017 13:06:26 Date Recorded Body height Provider Name an d Address Organization Details Last Updated DateTime 09/04/2017 172.72 cm My Ramirez [facility] 09/04/2017 14:46:04 Date Recorded Body height Provider Name an d Address Organization Details Last Updated DateTime 10/09/2017 172.72 cm My Ramirez [facility] 10/09/2017 13:50:40 Date Recorded Body height Provider Name an d Address Organization Details Last Updated DateTime 11/06/2017 172.72 cm Nancy Timmons [facility] 11/06/2017 13:12:56 Social History Question Answer Notes LastModified by Organizat ion Details LastModified Time Tobacco Smoking Status Never Smoker Not Available [facility] 03:38:34 Alcohol Use Yes Information n ot available 07/30/2017 Alcohol Amount Heavy Curently Stopped Information not available 07/30/2017 Caffeine Use Yes Information not available 07/30/2017 Caffeine Type Coffee Information not available 07/30/2017 Caffeine Amount 1 Cup Daily Information not available 07/30/2017 Illicit Drug Use No Information not available 07/30/2017 What Was The Date Of Your Most Recent Tobacco Screening? 02/05/2018 [id number] Information not available 08/01/2020 Sex: Unknown Functional Status None recorded. Mental Status None recorded. Family History Relationship Description Onset Age of this Age Resolved Age Notes LastModified by Organization Details LastModified Time Mother Malignant tumor of colon 67 Not available 2016 13:22:34 Father Malignant neoplasm of skin Not available 2016 13:22:54 Medical History Condition Response Coronary Artery Disease N Other N Atrial Fibrillation N Kidney Stones N Hyperthyroidism N Hernia N Glaucoma N Hypothyroidism N COPD N Depression N Accidental Bowel Leakage N Headaches/Migraines N Deep Vein Thrombosis N Cardiac Dysrhythmia N Anxiety Disorder N MRSA/VRE Exposure N Diverticulosis N Cancer N Stroke Y Head Trauma N Genital Warts N Crohn's Disease N Liver Disease/Hepatitis N HIV/AIDS N High Cholesterol N Irritable Bowel Syndrome N Autoimmune Disease N Kidney Disease N Anemia N Celiac Disease N Arthritis/Gout N Anal/Rectal Trauma/Injury N Diabetes N Cataracts N Bleeding Disorder N Seizures/Epilepsy N Diverticulitis N Asthma N Reflux/GERD N Ulcerative Colitis N Sleep Apnea N Aneurysm N Heart Disease N Pulmonary Embolism N Hypertension Y Colon/Rectal Polyps Y Past Encounters Encounter ID Performer Location Encounter Start Date Encounter Closed Date Diagnosis/Indication Diagnosis SNOMED-CT Code Diagnosis ICD10 Code Diagnosis Note [id number] Jaja Walker MD Main Office [address] [facility] [address] [place] [address] 07/30/2017 13:18:52 07/30/2017 15:00:34 Pile easily reducible 908748615 K64.1 Stage 2 - 3 internal hemorrhoid s/external hemorrhoid s: I do think he would benefit from infrared coagulatio n. Full informed consent for treatment was given including risks/bene fits and alternativ es. He wanted to proceed with treatment. His first treatment was done today on the right posterior? . I advised for now he needs to take his baby aspirin every other day but hopefully we can get his bleeding better and he can go back on it daily. External hemorrhoids 239 70741 K64.4 ? These will improve with IRC. He understand s the only way to directly treat external hemorrhoid s would be with surgery and he does not wish to pursue this and his hemorrhoid s are not bad enough to require surgery. Constipation 11758618 K5 9.00 ? I advised that she start BOTH Bene Fiber and Miralax at very low dose and slowly increase to try to maintain soft daily BM's. History of transient ischemic attack 143953623 Z86.73 He needs to go down on the baby aspirin for now but hopefully we can get him back on it as soon as possible. [id number] Jaja Walker MD Main Office [address] [facility] [address] [place] [address] 08/07/2017 13:09:11 08/07/2017 13:42:13 Constipation 90378984 K59.00 ? Is doing well with the Bene Fiber and Miralax. I advised take forever and adjust doses as needed to maintain soft daily BM's. External hemorrhoids 239 36092 K64.4 Pile easily reducible 27 7057856 K64.1 I discussed treatment discomfort with him. It does not sound like he has anything concerning going on and my expectatio n is that he will improve. I advised he needs to let me know if he does not - and certainly let me know if he worsens. I advised there is nothing wrong with waiting another week before proceeding with his next treatment. History of transient ischemic attack 828324754 Z86.73 He will stay with every other day on the baby aspirin for now. [id number] Jaja Walker MD Main Office [address] [facility] [address] [place] [address] 08/14/2017 13:04:22 08/14/2017 13:39:37 Pile easily reducible 638547483 K64.1 ? Stage 2 internal hemorrhoid s/external hemorrhoid s: He is doing well with infrared coagulatio ? n treatment. His 2nd treatment was done today on the LL. External hemorrhoids 239 13294 K64.4 ? Improving with IRC History of transient ischemic attack 683582637 Z86.73 He will stay with every other day on the baby aspirin for now. Constipation 30914415 K5 9.00 ? Is doing well with the Bene Fiber and Miralax. I advised take forever and adjust doses as needed to maintain soft daily BM's. [id number] Jaja Walker MD Main Office [address] [facility] [address] [place] [address] 09/04/2017 14:45:29 09/04/2017 15:26:35 Pile easily reducible 502979589 K64.1 ? Stage 2 internal hemorrhoid s/external hemorrhoid s: He is doing well with infrared coagulatio ? n treatment. His 3rd treatment was done today on the right anterior internal hemorrhoid . External hemorrhoids 239 47528 K64.4 ? Improving with IRC Constipation 34295755 K5 9.00 ? Is doing well with the Bene Fiber and Miralax. I advised take forever and adjust doses as needed to maintain soft daily BM's. History of transient ischemic attack 600841196 Z86.73 He will stay with every other day on the baby aspirin for now but I advised in about 2 weeks he can go back to taking it daily. [id number] Jaja Walker MD Main Office [address] [facility] [address] [place] [address] 10/09/2017 13:50:08 10/09/2017 14:36:54 Pile easily reducible 302310787 K64.1 Stage 2 internal hemorrhoid s/external hemorrhoid s: He is doing well with infrared coagulatio n treatment. His 4th treatment was done today on the right posterior. External hemorrhoids 239 11321 K64.4 Improved with IRC. Constipation 39571406 K5 9.00 ? Is doing well with the Bene Fiber and Miralax. I advised take forever and adjust doses as needed to maintain soft daily BM's. [id number] Jaja Walker MD Main Office [address] [facility] [address] [place] [address] 11/06/2017 13:12:28 11/06/2017 13:38:07 Pile easily reducible 184696783 K64.1 Stage 2 - 3 internal hemorrhoid s/external hemorrhoid s: He is doing fairly well with infrared coagulatio n treatment. His 5th treatment was done today on the left lateral internal hemorrhoid . I discussed with him his hemorrhoid s are still quite large even though he is better. He absolutely does not want to see a surgeon to discuss banding or surgery. External hemorrhoids 239 50188 K64.4 Improved with IRC. Constipation 27922908 K5 9.00 ? Is doing well with the Bene Fiber and Miralax. I advised take forever and adjust doses as needed to maintain soft daily BM's. Screening for malignant neoplasm of colon 065152094 Z12.11 He is going to wait about 6 weeks (after he is back from his vacation to [place]) and then will get his colonoscop y. [id number] Jaja Walker MD Main Office [address] [facility] [address] [place] [address] 02/05/2018 13:03:36 02/05/2018 13:31:42 Annalee easily reducible 816349234 K64.1 He has done extremely well with infrared coagulatio n. We both decided to simply wait and see how he does over time and not do a treatment today. He understand s that his hemorrhoid s are still fairly large and he will probably have a return of his symptoms. He should get back in here when that happens and never let his symptoms get as bad as when we first started treatment. He voiced understand ing. External hemorrhoids 239 52984 K64.4 Improved with IRC. Constipation 82729692 K5 9.00 ? Is doing well with the Bene Fiber and Miralax. I advised take forever and adjust doses as needed to maintain soft daily BM's. Screening for malignant neoplasm of colon 977897532 Z12.11 He does need to get his colonoscop y done. He states he will do so. Health Concerns Section Related Observation LastModified by Organization Detai ls LastModified Time None Recorded Concern Status LastModified by Organization Details LastModified Time None Recorded Advance Directives Directive None Recorded Payers Encounter Date Sequence Insurance Name Policy Number Policy Roberson Covered Member ID Roberson Member ID Guarantor Name 08/14/2017 2 [employer] (MEDICARE SUPPLEMENT) Campbell Coronado [id number] Campbell Coronado 08/14/2017 1 [place] Campbell Coronado [id number] Campbell Coronado 09/04/2017 2 [employer] (MEDICARE SUPPLEMENT) Campbell Coronado [id number] Campbell Coronado 09/04/2017 1 [place] Campbell Coronado [id number] Campbell Coronado 10/09/2017 2 [employer] (MEDICARE SUPPLEMENT) Campbell Coronado [id number] Campbell Coronado 10/09/2017 1 [place] Campbell Coronado [id number] Campbell Coronado 11/06/2017 2 [employer] (MEDICARE SUPPLEMENT) Campbell Coronado [id number] Campbell Coronado 11/06/2017 1 MED[place]ARE [place]: [facility] Campbell Coronado [id number] Campbell Coronado 02/05/2018 2 [employer] (MEDICARE SUPPLEMENT) Campbell Coronado [id number] Campbell Coronado 02/05/2018 1 [place]: [employer] Campbell Marjorie Coronado [id number] Campbell Amador Ivonne Notes Date Note Type Note Provider Name and Address Organization Details Recorded Time 08/14/2017 text/html Follow up: See previous visits. He states he is much better with the treatment discomfort - he is currently having no discomfort. He has seen only a very small amount of bleeding with a few BM's. This is much better than before treatment. He continues on the low dose Bene Fiber and Miralax and BM's are good. Jaja Walker MD [address] [place] [address],[address], [place], [address], [facility] 08/15/2017 11:11:36 09/04/2017 text/html No problem with tx and he is doing really well. He did have a little soreness for a couple of days but it was not bad and is gone. He has seen bleeding with only a few BM's and this has been some on the wipe. It is much easier to get and stay clean. He has a lot less swelling and discomfort. He continues on the Bene Fiber and Miralax and his BM's have been good. Jaja Walker MD [address] [place] [address],[address], [place], [address], [facility] 09/17/2017 15:23:52 10/09/2017 text/html No problem with tx and he has been doing great. He did have some slight bleeding for about 1 1/2 weeks after his last treatment but he has not seen any since then. He has had no discomfort. It is easier to get and stay clean. He continues on the Bene Fiber and Miralax and his BM's have been good. Jaja Walker MD [address] [place] [address],[address], [place], [address], [facility] 10/10/2017 15:53:01 11/06/2017 text/html No problem with tx and overall he is much better. He has seen only a very small amount of blood on the wipe a few times but nothing heavy and it is very intermittent. He does have some discomfort. He states even sitting here now I can just feel it but this is less discomfort than he had been having prior to treatment. He continues with the Bene Fiber and Miralax and BM's are soft and about every day and a half . Jaja Walker MD [address] [place] [address],[address], [place], [address], [facility] 11/06/2017 18:56:57 02/05/2018 text/html No problem with treatment and he has been doing great. He enjoyed his trip to [place] and had no symptoms from his hemorrhoids while he was there. He has had no bleeding, no discomfort and no leakage/drainage. He is very happy with his treatment. He continues with the Bene Fiber and Miralax and his BM's have been soft and daily. He did not get his colonoscopy yet. Jaja Walker MD [address] [place] [address],[address], [place], [address], [facility] 02/05/2018 22:44:32
--- OUTSIDE RECORDS SUMMARY | 2024-10-21 07:16 | XMS_ITS | Data Portability ---
Author Organization J[facility]N - [facility], PJackieCJackie, [facility] Address [address] [place] [address] Assessment No assessment recorded. Plan of Treatment Reminders Order Date Submit Date Provider Last Modified By Organization Details Last Modified Time Details Appointments None recorded. Lab uric acid, serum or plasma 2014 015 YVON Not available 5 15:46:58 vitamin D3, 25-hydroxy, serum 2014 015 smimms Not available 5 14:02:50 carcinoembr yonic Ag, quant, serum or plasma 2014 015 YVON Not available 5 15:46:59 CBC 2014 015 smimms Not available 5 14:02:50 CMP, serum or plasma 2014 015 YVON Not available 5 15:46:58 ferritin, serum or plasma 2014 015 YVON Not available 5 15:46:59 vitamin B12 + folate, serum or blood 2014 015 YVON Not available 5 15:46:59 CRP, high sensitivity , serum or plasma 2014 015 YVON Not available 5 15:46:59 Referral None recorded. Procedures None recorded. Surgeries None recorded. Imaging None recorded. Medication Orders Natrum Muriaticum 2014 015 [email or web address] Not available 5 12:22:42 Natrum Muriaticum 2014 015 [email or web address] Not available 5 10:47:30 Patient TargetsNo targets recorded. Patient Instructions Encounter Date Encounter Id Patient Instructions Last Modified By Organization Details Last Modified Time 03/23/2015 [id number] gout: care instructions [email or web address] Not available 03/23/2015 14:35:59 constipation: ca re instructions amalic Not available 03/23/2015 14:35:59 Diet: read book The Hormone Reset Diet by Dr. Yvonne Alexandra Diet: vegetable heavy Paleo?? 100 oz water daily For gut health: Daily probiotic Prescript Assist 1 tab daily To support blood pressure: Pressur-Lo by FutureBiotics 3 tabs twice daily [place] ho 400 mg twice daily?? Magnesium citrate 400 mg twice daily Berberine 500 mg twice daily Coenzyme Q10 300 mg daily?? Liver Cleanse 2 tabs daily x 2 months?? Juice Plus 3-blend capsules daily. Do not do their shakes or bars. www.Kapost, may also try just Mona blend daily first?? SunWarrior Organic Vegan Protein chocolate or vanilla plant protein shake mix 1 scoop as needed in almond or coconut milk for breakfast SunFoods powdered greens 1 tblsp daily www.VigilixacostVaxart Medications reviewed, side effects discussed.??Call?? or??return to clinic??if questions or concerns. Return to clinic if symptoms worsen or persist. [email or web address] Not available 03/23/2015 12:22:03 05/12/2015 [id number] To support blood pressure and blood sugar: Pressur-Lo by [employer]Biotics 3 tabs twice daily [place] ho 400 mg twice daily?? Magnesium citrate 400 mg twice daily Berberine 500 mg twice daily Coenzyme Q10 300 mg daily? Juice Plus 3-blend capsules daily. Do not do their shakes or bars. Consider Organifi green juice powder daily as label directs www.[employer] Glycemovite by [place] [employer] as label directs https://www.Vyclone.[employer]/glycemo oedw-vp-adod-energ etics.html B12 active 1000 mcg daily as directed?? Medications reviewed, side effects discussed.??Call?? or??return to clinic??if questions or concerns. Return to clinic if symptoms worsen or persist. Not available 05/12/2015 10:47:30 Discussed risks of elevated BP and signs/sx of stroke; go to ER if any CP, SOB, severe MELGAR, diaphoresis, and other symptoms discussed. Pt refuses any Rxs and wants to only take supplements/otc.?? [email or web address] Not available 05/12/2015 10:47:30 Reason for Referral None Reported. Results Created Date Observation Date Name Description Value Unit Range Abnormal Flag Note LastModifiedBy Organization Detail LastModifiedTime 03/23/20 15 03/24/2015 uric acid, serum or plasm a uric acid 8.1 mg/dL 4.0-8. 0 high Thera peuti c targe t for gout patie nts: <6.0 mg/dL Not Available [facility] [address] [address] [place], [address], 03/24/2015 15:46:57 03/23/20 15 03/24/2015 CMP, serum or plasm a glucose 102 mg/dL 65-99 high Fasti ng refer ence inter nitesh Not Available [address] [address] [place], [address], 03/24/2015 15:46:58 03/23/20 15 03/24/2015 CMP, serum or plasm a urea nitrogen (BUN) 13 mg/dL 7-25 normal Not Available [facility] [address] [address] [place], [address], 03/24/2015 15:46:58 03/23/20 15 03/24/2015 CMP, serum or plasm a creatinine 0.99 mg/dL 0.70-1 .25 normal For patie nts >49 years of age, the refer ence limit for Creat inine is appro ximat tony 13% highe r for peopl e ident ified as Afric an-Am venice n. Not Available [facility] [address] [address] [place], [address], 03/24/2015 15:46:58 03/23/20 15 03/24/2015 CMP, serum or plasm a eGFR non-afr. djiboutian 79 mL/mi n/1.7 3m2 > or = 60 normal Not Available [address], [address], 03/24/2015 15:46:58 03/23/20 15 03/24/2015 CMP, serum or plasm a eGFR 92 mL/mi n/1.7 3m2 > or = 60 normal Not Available [address], [address], 03/24/2015 15:46:58 03/23/20 15 03/24/2015 CMP, serum or plasm a BUN/creatini ne ratio NOT APPLIC ABLE (calc ) 6-22 Not Available [address], [address], 03/24/2015 15:46:58 03/23/20 15 03/24/2015 CMP, serum or plasm a sodium 137 mmol/ L 135-14 6 normal Not Available [address], [address], 03/24/2015 15:46:58 03/23/20 15 03/24/2015 CMP, serum or plasm a potassium 4.3 mmol/ L 3.5-5. 3 normal Not Available [address], [address], 03/24/2015 15:46:58 03/23/20 15 03/24/2015 CMP, serum or plasm a chloride 100 mmol/ L 98-110 normal Not Available [address], [address], 03/24/2015 15:46:58 03/23/20 15 03/24/2015 CMP, serum or plasm a carbon dioxide 28 mmol/ L 19-30 normal Not Available [address], [address], 03/24/2015 15:46:58 03/23/20 15 03/24/2015 CMP, serum or plasm a calcium 9.5 mg/dL 8.6-10 .3 normal Not Available [address], [address], 03/24/2015 15:46:58 03/23/20 15 03/24/2015 CMP, serum or plasm a protein, total 7.6 g/dL 6.1-8. 1 normal Not Available [address], [address], 03/24/2015 15:46:58 03/23/20 15 03/24/2015 CMP, serum or plasm a albumin 4.5 g/dL 3.6-5. 1 normal Not Available [address], [address], 03/24/2015 15:46:58 03/23/20 15 03/24/2015 CMP, serum or plasm a globulin 3.1 g/dL_ (calc ) 1.9-3. 7 normal Not Available [address], [address], 03/24/2015 15:46:58 03/23/20 15 03/24/2015 CMP, serum or plasm a albumin/glob ulin ratio 1.5 (calc ) 1.0-2. 5 normal Not Available [address] [place], [address], 03/24/2015 15:46:58 03/23/20 15 03/24/2015 CMP, serum or plasm a bilirubin, total 1.1 mg/dL 0.2-1. 2 normal Not Available [address] [address] [place], [address], 03/24/2015 15:46:58 03/23/20 15 03/24/2015 CMP, serum or plasm a alkaline phosphatase 65 U/L 40-115 normal Not Available [facility] [address] [address] [place], [address], 03/24/2015 15:46:58 03/23/20 15 03/24/2015 CMP, serum or plasm a AST 22 U/L 10-35 normal Not Available [address], [address], 03/24/2015 15:46:58 03/23/20 15 03/24/2015 CMP, serum or plasm a ALT 20 U/L 9-46 normal Not Available [address], [address], 03/24/2015 15:46:58 03/23/20 15 03/24/2015 CBC w/ auto diff white blood cell count 6.7 thous and/u L 3.8-10 .8 normal Not Available [address], [address], 03/24/2015 15:46:58 03/23/20 15 03/24/2015 CBC w/ auto diff red blood cell count 5.72 anita on/uL 4.20-5 .80 normal Not Available [address], [address], 03/24/2015 15:46:58 03/23/20 15 03/24/2015 CBC w/ auto diff hemoglobin 15.5 g/dL 13.2-1 7.1 normal Not Available [address], [address], 03/24/2015 15:46:58 03/23/20 15 03/24/2015 CBC w/ auto diff hematocrit 48.3 % 38.5-5 0.0 normal Not Available [address], [address], 03/24/2015 15:46:58 03/23/20 15 03/24/2015 CBC w/ auto diff MCV 84.3 fL 80.0-1 00.0 normal Not Available [address], [address], 03/24/2015 15:46:58 03/23/20 15 03/24/2015 CBC w/ auto diff MCH 27.1 pg 27.0-3 3.0 normal Not Available [address], [address], 03/24/2015 15:46:58 03/23/20 15 03/24/2015 CBC w/ auto diff MCHC 32.2 g/dL 32.0-3 6.0 normal Not Available [address], [address], 03/24/2015 15:46:58 03/23/20 15 03/24/2015 CBC w/ auto diff RDW 18.4 % 11.0-1 5.0 high Not Available [address], [address], 03/24/2015 15:46:58 03/23/20 15 03/24/2015 CBC w/ auto diff platelet count 265 thous and/u L 140-40 0 normal Not Available [address], [address], 03/24/2015 15:46:58 03/23/20 15 03/24/2015 CBC w/ auto diff MPV 7.0 fL 7.5-11 .5 low Not Available [address], [address], 03/24/2015 15:46:58 03/23/20 15 03/24/2015 CBC w/ auto diff absolute neutrophils 4616 cells /uL 1500-7 800 normal Not Available [address], [address], 03/24/2015 15:46:58 03/23/20 15 03/24/2015 CBC w/ auto diff absolute lymphocytes 1280 cells /uL 850-39 00 normal Not Available [address], [address], 03/24/2015 15:46:58 03/23/20 15 03/24/2015 CBC w/ auto diff absolute monocytes 576 cells /uL 200-95 0 normal Not Available [address], [address], 03/24/2015 15:46:58 03/23/20 15 03/24/2015 CBC w/ auto diff absolute eosinophils 214 cells /uL 15-500 normal Not Available [address], [address], 03/24/2015 15:46:58 03/23/20 15 03/24/2015 CBC w/ auto diff absolute basophils 13 cells /uL 0-200 normal Not Available [address], [address], 03/24/2015 15:46:58 03/23/20 15 03/24/2015 CBC w/ auto diff neutrophils 68.9 % normal Not Available [address], [address], 03/24/2015 15:46:58 03/23/20 15 03/24/2015 CBC w/ auto diff lymphocytes 19.1 % normal Not Available [address], [address], 03/24/2015 15:46:58 03/23/20 15 03/24/2015 CBC w/ auto diff monocytes 8.6 % normal Not Available [address], [address], 03/24/2015 15:46:58 03/23/20 15 03/24/2015 CBC w/ auto diff eosinophils 3.2 % normal Not Available [address], [address], 03/24/2015 15:46:58 03/23/20 15 03/24/2015 CBC w/ auto diff basophils 0.2 % normal Not Available [address], [address], 03/24/2015 15:46:58 03/23/20 15 03/24/2015 C-moe ctive prote in, quant itati ve, serum or plasm a C-reactive protein 0.28 mg/dL <0.80 normal Pleas e be advis ed that patie nts takin g Carbo xypen icill ins may exhib it false ly decre ased C-Buckhorn ctive Prote in level s due to an cisco tical inter feren ce in this assay . Not Available [facility] [address] [address] [place], [address], 03/24/2015 15:46:59 03/23/20 15 03/24/2015 bhavana tin, serum or plasm a ferritin 28 NG/mL 20-380 normal Not Available [facility] [address] [address] [place], [address], 03/24/2015 15:46:59 03/23/20 15 03/24/2015 carci noemb ryoni c Ag, quant , serum or plasm a cea <0.5 NG/mL see note: normal Refer ence Range : Non-S moker : <2.5 Smoke r: <5.0 This test was perfo rmed using the Sieme ns chemi lumin escen t metho d. Value s obtai courtney from diffe rent assay metho ds canno t be used inter singh eably . CEA level s, regar dless of value , shoul d not be inter prete d as absol dario evide nce of the prese nce or absen ce of disea se. Not Available [facility] [address] [address] [place], [address], 03/24/2015 15:46:59 03/23/20 15 03/24/2015 vitam in B12 + folat e, serum or blood vitamin B12 567 pg/mL 200-11 00 normal Not Available [facility] [address] [address] [place], [address], 03/24/2015 15:46:59 03/23/20 15 03/24/2015 vitam in B12 + folat e, serum or blood folate, serum >24.0 NG/mL normal Refer ence Range Low: <3.4 Borde rline : 3.4-5 .4 Shaylee l: >5.4 Not Available [facility] [address] [address] [place], [address], 03/24/2015 15:46:59 03/23/20 15 03/24/2015 vitam in D, 25-hy droxy , total , serum vitamin D,25-oh,tota l,ia 30 NG/mL 30-100 normal Vitam in D Statu s 25-OH Vitam in D: Defic iency : <20 ng/mL Insuf ficie ncy: 20 - 29 ng/mL Optim al: > or = 30 ng/mL For 25-OH Vitam in D testi ng on patie nts on D2-kerr pplem entat ion and patie nts for whom quant itati on of D2 and D3 fract ions is requi red, the Quest Assur eD(TM ) 25-OH VIT D, (D2,D 3), LC/MS /MS is recom asia d: order code 66289 (lavell ents >2yrs ). For more infor danyelle canchola on this test, go to: http: //elizabeth caldwell stdia gnost ics.c om/fa q/FAQ 163 Not Available [facility] [address] [place], [address], 03/24/2015 15:47:00 Result Notes None recorded. Problems Name Problem SNOMED Code Status Onset Date Resolution Date Notes Provider Name and Address Organization Details Recorded Time Fatigue 62990795 Active [facility]N [facility] 5 12:22:42 Hypertensive disorder 42234390 Active [facility] 5 10:47:30 Constipation 13365578 Active [facility] 5 12:22:42 Gout 46474159 Active Minnie pham, [facility] 5 10:39:59 Problem Notes None recorded. Procedures Surgical History Date Name Laterality Status Provider Name and Address Organization Details Recorded Time 09/29/18 98 Repair testis injury completed Michaela Bangura [facility] 03/23/2015 17:58:50 Arthroscopic Surgery completed Jvjuan Buckley [facility] 03/23/2015 11:26:45 Imaging Results None recorded. Procedure Notes None recorded. Medical Equipment None Reported. Allergies Allergen ID Allergen Name Allergen Category Reaction Reaction Severity Criticality Documentation Date Start Date Code Code System Note Provider Name and Address Organization Details Recorded Time 34064 Levaquin medicatio n Not available Not available Not available 03/23/2015 89211 2 RxNorm Claire pham [facility] 5 12:58:53 17074 Product containin g penicilli n and antibioti c (product) medicatio n Not available Not available Not available 03/23/2015 93621 05 SNOMED Claire pham [facility] 5 12:58:53 75580 mold extract environme nt respirato ry distress moderate Not available 03/23/2015 60489 8 RxNorm Claire pham [facility] 5 12:58:53 Medications Name Sig Start Date Stop Date Status Note LastModified by Organization Details LastModified Time Natrum Muriaticum 200c 1m x 2 doses, then 12x 5 pellets BID 2014 active Not Available Not Available Not Avai lable Natrum Muriaticum 200c 1m x 2 doses, then 12x 5 pellets BID 2014 active Not Available Not Available Not Avai lable clindamycin HCl 300 mg capsule active Not Available Not Availab le Not Available hydrocodone 5 mg-acetaminophe n 325 mg tablet active Not Available Not Availa ble Not Available metronidazole 250 mg tablet active Not Available Not Availabl e Not Available clindamycin HCl 150 mg capsule active Not Available Not Availab le Not Available amlodipine 2.5 mg tablet active Not Available Not Available No t Available amlodipine 5 mg tablet active Not Available Not Available Not Available tramadol 50 mg tablet active Not Available Not Available Not Available meloxicam 7.5 mg tablet active Not Available Not Available No t Available famotidine 20 mg tablet active Not Available Not Available No t Available cephalexin 500 mg capsule active Not Available Not Available N ot Available naproxen sodium 550 mg tablet active Not Available Not Availabl e Not Available hydrochlorothia zide 25 mg tablet active Not Available Not Available Not Available ondansetron 4 mg disintegrating tablet active Not Available Not Available Not Available metformin ER 500 mg tablet,extended release 24 hr active Not Available Not Availabl e Not Available hydrocodone 5 mg-acetaminophe n 300 mg tablet active Not Available Not Availa ble Not Available Zostavax (PF) 19,400 unit/0.65 mL subcutaneous suspension active Not Available Not Available N ot Available Vitals Date Recorded Body weight Heart rate Body mass index (BMI) Body height Systolic blood pressure Diastolic blood pressure Provider Name and Address Organization Details Last Updated DateTime 5 52163.4 74 g 55 /min 30.4 kg/m2 172.72 cm 182 mm[Hg] 99 mm[Hg] Jv JORGENSEN [facility] 5 11:26:45 Date Recorded Body weight Heart rate Body mass index (BMI) Body height Systolic blood pressure Diastolic blood pressure Provider Name and Address Organization Details Last Updated DateTime 5 68409.1 13883 g 62 /min 31.4 kg/m2 172.72 cm 187 mm[Hg] 99 mm[Hg] [facility] 5 09:53:33 Date Recorded Systolic blood pressure Diastolic blood pressure Provider Name and Address Organization Details Last Updated DateTime 05/12/2015 172 mm[Hg] 98 mm[Hg] Minnie Messer [facility] 05/12/2015 10:39:46 Social History Question Answer Notes LastModified by Organizat ion Details LastModified Time Tobacco Smoking Status Never Smoker JOSLYN [facility] 03/23/2015 12:02:46 Do You Have An Advance Directive? Yes Information not available 03/23/2015 What Is Your Level Of Alcohol Consumption? None Information not available 03/23/2015 Animal Exposure? No Informat ion not available 03/23/2015 Do You Wear A Helmet When Biking? No Information not available 03/23/2015 Are You Blind Or Do You Have Difficulty Seeing? No Information not available 03/23/2015 Is Blood Transfusion Acceptable In An Emergency? Yes Information not available 03/23/2015 Are You Or Have You Been Involved With Bullying? No Information not available 03/23/2015 What Is Your Level Of Caffeine Consumption? Occasional Information not available 03/23/2015 How Much Tobacco Do You Chew? None Information not available 03/23/2015 What Type Of Datapower Developer Do You Use? None Information not available 03/23/2015 Are You Currently Employed? No Information not available 03/23/2015 Are You Deaf Or Do You Have Serious Difficulty Hearing? No Information not available 03/23/2015 What Type Of Diet Are You Following? REGULAR Information not available 03/23/2015 Which Illicit Or Recreational Drugs Have You Used? No Information not available 03/23/2015 Education 2 Year College Informatio n not available 03/23/2015 What Is Your Occupation? Retired Information not available 03/23/2015 Have There Been Any Changes To Your Family Or Social Situation? No Information not available 03/23/2015 What Is The Fluoride Status Of Your Home? Fluoridated Information not available 03/23/2015 Are There Any Guns Present In Your Home? Yes Information not available 03/23/2015 Hard Of Hearing Or Deaf In One Or Both Ears? No Information not available 03/23/2015 Single Or Multi-level Home/work? Multi Level Home Information not available 03/23/2015 What Is Your Home Situation? Other Information not available 03/23/2015 Do You Use Insect Repellent Routinely? No Information not available 03/23/2015 Legally Blind In One Or Both Eyes? No Information not available 03/23/2015 Live Alone Or With Others? With Others Information not available 03/23/2015 Marital Status Informatio n not available 03/23/2015 Mosquito Repellent Used Routinely No Information not available 03/23/2015 How Many Children Do You Have? 1 Information not available 03/23/2015 Performs Monthly Self-breast Exam? No Information not available 03/23/2015 Pool Exposure No Information not available 03/23/2015 Do You Use Protection During Sex? No Information not available 03/23/2015 Do You Use Your Seat Belt Or Car Seat Routinely? No Information not available 03/23/2015 Seat Belts Used Routinely No Information not available 03/23/2015 Number Of Sexual Partners 1 Information not available 03/23/2015 Do You Have Any Siblings? Brother Information not available 03/23/2015 Smoke Alarm In Home Yes Information not available 03/23/2015 Do You Have Smoke And Carbon Monoxide Detectors In Your Home? No Information not available 03/23/2015 Are You Passively Exposed To Smoke? Yes Information not available 03/23/2015 How Much Tobacco Do You Smoke? No Information not available 03/23/2015 What Types Of Sporting Activities Do You Participate In? Basketball,foot ball Information not available 03/23/2015 General Stress Level Low Information not available 03/23/2015 Do You Use Sunscreen Routinely? Yes Information not available 03/23/2015 How Many Years Have You Smoked Tobacco? 0 Information not available 03/23/2015 Work Related Injury? No Information not available 03/23/2015 Year In School College Informatio n not available 03/23/2015 Sex: Unknown Functional Status Question Answer Note LastModified by Organizat ion Details LastModified Time Do you have difficulty walking or climbing stairs? No Information not available 03/23/2015 Do you have difficulty doing errands alone? No Information not available 03/23/2015 Do you have difficulty dressing or bathing? No Information not available 03/23/2015 What is your exercise level? Moderate Information not available 03/23/2015 Mental Status Question Answer Note LastModified by Organization D etails LastModified Time Do you have difficulty concentrating, remembering or making decisions? Yes Information no t available 03/23/2015 Family History Relationship Description Onset Age of this Age Resolved Age Notes LastModified by Organization Details LastModified Time Mother Malignant tumor of colon smimms Not available 2014 18:00:58 Father Hypertensive disorder smimms Not available 2014 18:00:58 Father Ischemic stroke smimms Not available 2014 18:00:58 Medical History Condition Response Coronary Artery Disease N Gout Y Kidney Stones N Blood Diseases N Hyperthyroidism N Depression N COPD N Hypothyroidism N Developmental or Behavioral Disorders N Anxiety Disorder N Muscle, Joint, or Bone Problems N Vision or Eye Problems N Arthritis N Head Injury/Concussion N Congenital Anomalies N Cancer N Stroke N ADHD N Bladder or Kidney Problems N Hospital Admission other than N High Cholesterol N Liver Disease N Fibromyalgia N Headaches N Kidney Disease N Ear or Hearing Problems N Thyroid Problems N Skin Problems N Anemia N Constipation N Mental Illness N Diabetes N Bedwetting N Heart Problems/Murmur N Seizures/Epilepsy N Tuberculosis N Diverticulitis N Asthma N Allergies N Reflux/GERD N Heart Disease N Pulmonary Embolism N Hypertension Y Chicken Pox N Autism Spectrum Disorder (ASD) N Osteoporosis N Past Encounters Encounter ID Performer Location Encounter Start Date Encounter Closed Date Diagnosis/Indication Diagnosis SNOMED-CT Code Diagnosis ICD10 Code Diagnosis Note [id number] Michaela Bangura Main Office [address] [place] [address] 03/23/2015 11:17:44 03/23/2015 12:26:40 Fatigue 98264547 Hypertensive disorder 43991588 Constipation 65904097 Gout [id number] Minnie Randall Main Office [address] [place] [address] 05/12/2015 09:42:44 05/12/2015 10:47:51 Hypertensive disorder 46792047 Dietary ma nagement surveillance 339307710 Health Concerns Section Related Observation LastModified by Organization Detai ls LastModified Time None Recorded Concern Status LastModified by Organization Details LastModified Time None Recorded Advance Directives Directive Y: Payers Encounter Date Sequence Insurance Name Policy Number Policy Roberson Covered Member ID Roberson Member ID Guarantor Name 03/23/2015 1 [place] Campbell Coronado [id number] Campbell Coronado 03/23/2015 2 *SELF PAY* Vinnie Reece 05/12/2015 1 [place] Campbell Coronado [id number] Campbell Coronado 05/12/2015 2 PHYSICIANS MUTUAL (MEDICARE SUPPLEMENT) Campbell Coronado [id number] Campbell Coronado
== END 2024-10-15 15:39 | disposition home or self-care (01) ==
PROVIDERS: PCP Internal Medicine; Visit Provider Internal Medicine
DX: J40 Bronchitis, not specified as acute or chronic (principal)
CPT/HCPCS: 71046

== ENCOUNTER 2024-12-29 13:46 | Outpatient (CLI) | payer MEDICARE, SELFPAY ==
--- NOTE | ~2024-12-29 | XR_ITS ---
Lumbosacral Spine: AP and lateral views Clinical History: Pain Findings: The normal lordotic curve is maintained. The vertebral bodies and posterior elements are i ntact. There are mild degenerative disc changes in the lumbar spine. There is advanced facet arthropa thy from L4 through S1. There is moderate facet arthropathy the upper lumbar spine.. The sacroiliac joints are normally outlined. Impression: Moderate degenerative spondylosis overall, as above. Reviewed, dictated and finalized at location M. Impression: Moderate degenerative spondylosis overall, as above.
--- OUTSIDE RECORDS SUMMARY | 2024-12-29 15:08 | XMS_ITS | Clinical Summary ---
Author Organization [facility] Address [address] [place] [id number] Care Team Providers Care Director Title Name Role Phone Soy Juan Primary Care Provider [phone] Allergies Active Allergy Reactions Criticality Noted Date Comments Levofloxacin Swelling,Other (See comments) Medium Swelling of the ankles Mold Shortness of breath High 05/29/2023 Penicillins Unknown,Rash Medium 05/18/2014 Sulfa (Sulfonamide Antibiotics) Other (See comments),Rash,Hives Medium 12/04/2023 Red patches on face Medications losartan-hydroCHLOR Othiazide (HYZAAR) 100-12.5 mg per tabletIndications:h ypertension Take 1 tablet by mouth every morning 021 Active fluorouraciL (EFUDEX) 5 % creamIndications:kerr perficial basal cell carcinoma Apply 1 Application topically as needed 021 Active cetirizine (ZyrTEC) 10 mg tabletIndications:A llergic Rhinitis Take 1 tablet (10 mg total) by mouth every morning Active ascorbic acid (VITAMIN C ORAL) Take 1 tablet by mouth every morning Active cholecalciferol, vitamin D3, (VITAMIN D3 ORAL) Take 1 tablet by mouth every morning Active ZINC ORAL Take 1 tablet by mouth as needed Active fluticasone propionate (FLONASE) 50 mcg/actuation nasal sprayIndications:Al lergic Rhinitis Administer 1 spray into each nostril as needed for rhinitis Active clobetasoL (TEMOVATE) 0.05 % ointment Active Ozempic 1 mg/dose (4 mg/3 mL) pen injector injection Inject 1 mg under the skin Active pantoprazole DR (PROTONIX) 40 mg EC tablet Take 1 tablet (40 mg total) by mouth daily 90 tablet Active metoprolol XL (TOPROL-XL) 25 mg extended release tabletIndications:P SVT (paroxysmal supraventricular tachycardia) Take 1 tablet (25 mg total) by mouth daily 90 tablet 3 024 2024 Active papaverine-phentola mine-alprostadil (TRIMIX) solution injectionIndication s:Erectile dysfunction after radical prostatectomy 0.15 mL by intracavernosal route once for 1 dose 5 mL 3 025 Active Active Problems Problem Noted Date Diagnosed Date Polyp, sigmoid colon 05/27/2024 Polyp of ascending colon 05/27/2024 Gastritis without bleeding 05/27/2024 Bloating 04/09/2024 Esophageal dysphagia 04/08/2024 Epigastric pain 04/08/2024 History of colon polyps 04/08/2024 Prostate cancer 05/19/2023 Elevated PSA 03/11/2023 Arthralgia of right knee 03/10/2023 Constipation 12/18/2020 Fatigue 12/18/2020 Gout 12/18/2020 Murmur, heart 07/17/2020 Essential hypertension 07/17/2020 MYLES (obstructive sleep apnea) 07/17/2020 Arthritis of left knee 11/04/2019 Encounter for screening for malignant neoplasm o f colon 11/06/2017 Encounter for screening for malignant neoplasm o f colon 11/06/2017 Constipation 07/30/2017 External hemorrhoids 07/30/2017 Piles 07/30/2017 History of transient ischemic attack 07/30/2017 Lesion of eyelid 03/28/2017 Knee pain 09/13/2014 Type 2 diabetes mellitus 09/13/2014 Knee pain 05/20/2014 Gastroesophageal reflux disease 02/04/2014 Cough 01/31/2014 Chest pain 11/12/2013 Obesity 11/12/2013 Chronic allergic conjunctivitis 01/26/2013 Iron deficiency anemia 10/13/2012 Iron deficiency anemia 10/13/2012 Mixed anxiety depressive disorder 06/17/2012 High risk medication use 04/13/2012 Encounter for screening for malignant neoplasm o f prostate 04/13/2012 Steatosis of liver 04/13/2012 Hay fever 07/25/2011 Hypogonadism in male 06/10/2011 External hemorrhoids 10/01/2010 Hypertension 10/01/2010 Hypertension 10/01/2010 Hypertension 10/01/2010 Encounter for preventive health examination 08/30 Encounters Date Type Department Care Team Description 11/17/2024 1:40 PM PLASTIC MOLDING OPERATOR Telemedicine [facility] Urology [address] [place] [address] Medical Office Building [address] [place] [id number] Kameron Dos Santos NP Prostate cancer (HCC); Erectile dysfunction after radical prostatectomy from Last 3 Months Surgical History Surgery Date Site/Laterality Comments NC ARTHROSCOPY KNEE DIAGNOST IC W/WO SYNOVIAL BX SPX Arthroscopy Knee Left - (Added by TW Conv) NC CYSTOURETHROSCOPY Diagnostic Cystoscopy - (Added by TW Conv) SURGERY SCROTAL / TESTICULAR SKIN CANCER EXCISION COLONOSCOPY 03/12/2019 UPPER GASTROINTESTINAL ENDOSCOPY 03/12/2019 KNEE ARTHROSCOPY W/ LATERAL RELEASE 2004 CATARACT EXTRACTION November 2022 PROSTATE SURGERY May 2023 Medical History Medical History Date Comments Acquired cyst of kidney Renal cy st - hemorrhagic (Added by TW Conv) History of colonic polyps Histor y of adenomatous polyp of colon - (Added by TW Conv) Hypertension Elevated PSA Sleep apnea High risk medication use 04/13/2012 Murmur, heart 07/17/2020 Chest pain 11/12/2013 Type 2 diabetes mellitus (HCC) 09/13/2014 Obesity 11/12/2013 Hypogonadism in male 06/10/2011 Hay fever 07/25/2011 Steatosis of liver 04/13/2012 Piles 07/30/2017 Gastroesophageal reflux disease 02/04/2014 External hemorrhoids 10/01/2010 Constipation 12/18/2020 Prostate cancer (HCC) 05/19/2023 Iron deficiency anemia 10/13/2012 Mixed anxiety depressive disorder 06/17/2012 Gout 12/18/2020 History of transient ischemic attack 07/30/2017 Cough 01/31/2014 MYLES (obstructive sleep apnea) 07/17/2020 Fatigue 12/18/2020 Clotting disorder Family History Medical History Relation Name Comments Colon cancer Brother Nubia Perea Stroke Brother Davido Jr Stroke Syndrome - (Added by TW Conv) Rheum arthritis Daughter Rheumatoid A rthritis - (Added by TW Conv) Cancer Father Reino Congenital heart disease Father Reino Con genital Heart Disease - (Added by TW Conv) Prostate cancer Father Reino Prostate Can cer - (Added by TW Conv) Stroke Father Reino Stroke Syndrome - (Added by TW Conv) Colon cancer Mother Negar Malignant Neopl asm, Colon - (Added by TW Conv) Lupus Mother's Brother Systemic Traci pus Erythematosus - (Added by TW Conv) Anesthesia problems Neg Hx Relation Name Status Comments Brother Nubia Jr Alive Daughter Father Reino Mother Negar Mother's Brother Social History Tobacco Use Types Packs/Day Years Used Date Smoking Tobacco: Never Smokeless Tobacco: Never Tobacco Cessation:Counseling Given: Not Answered AUDIT-C Answer Date Recorded Q1: How often do you have a drink containing alc ohol? 2-3 times a week 05/27/2024 Q2: How many drinks containi ng alcohol do you have on a typical day when you are drinking? 1 or 2 05/27/2024 Q3: How often do you have si x or more drinks on one occasion? Never 05/27/2024 Personal Safety Answer Date Recorded Have you ever been in or are you currently in a harmful physical or emotional relationship or is someone making you feel afraid or unsafe? Denies 05/27/2024 Sex and Gender Information Value Date Recorded Sex Assigned at Not on file Legal Sex Male 1:23 PM PLASTIC MOLDING OPERATOR Gender Identity Male 06/13/2021 12:16 PM CDT Sexual Orientation Straight 06/13/2021 12 :16 PM CDT Obstetrics History Last Filed Vital Signs Vital Sign Reading Time Taken Comments Blood Pressure 140/82 08/19/2024 11:06 AM PLASTIC MOLDING OPERATOR Pulse 64 08/19/2024 11:06 AM PLASTIC MOLDING OPERATOR Temperature 36.1 C (96.9 F) 05/27/2024 2:37 PM CDT Respiratory Rate 21 05/27/2024 4:50 PM CDT Oxygen Saturation 97% 08/19/2024 11:06 AM PLASTIC MOLDING OPERATOR Inhaled Oxygen Concentration - - Weight 99.3 kg (219 lb) 08/19/2024 11:06 AM PLASTIC MOLDING OPERATOR Height 172.7 cm (5' 8 ) 08/19/2024 11:06 AM PLASTIC MOLDING OPERATOR Body Mass Index 33.3 08/19/2024 11:06 AM PLASTIC MOLDING OPERATOR Plan of Treatment Health Maintenance Due Date Last Done Comments Albumin Creatinine Ratio, Urine 1950 Depression Screening 1950 Dilated Eye Exam 1950 Foot Exam 1950 Hepatitis B Screening 1966 DTaP/Tdap/Td Vaccine (1 - Tdap) 2009 0 Well Visit 65+ 2013 Lipid Panel 11/03/2014 11/03/2013, 10/07/2012 Hemoglobin A1C 11/27/2023 05/29/2023 eGFR 06/12/2024 06/12/2023, 05/29/2023 Fall Risk Assessment 05/27/2025 05/27/2024 Influenza Vaccine (Season Ended) 2025 08/21/2019, 07/16/2018, 06/16/2017, Additional history exists Hepatitis C Screening Completed 10/07/2012 Pneumococcal vaccine 65+ Completed 016, 06/28/2015, 08/29/2010 Zoster Vaccine Completed 11/11/2019, 07/31, 05/24/2014 Colon Cancer Screening-CT Colonography Discontinued 05/27/2024, 03/12/2019 Colon Cancer Screening-Colonoscopy Discontinued 05/27/2024, 03/12/2019 Colon Cancer Screening-DNA Stool Discontinued 05/27/20 24, 03/12/2019 Colon Cancer Screening-FIT Discontinued 05/27/2024, Colon Cancer Screening-FOBT Discontinued 05/27/2024, 0 03/12/2019 Colon Cancer Screening-Sigmoidoscopy Discontinued 05/27/2024, 03/12/2019 Colorectal Cancer Screening Discontinued Prostate Cancer Screening-PSA Discontinued , 12/09/2023, 07/24/2023, Additional history exists Procedures Procedure Name Priority Date/Time Associated Diagnosis Comments PSA SCREEN Routine 06/17/2024 11:20 AM CDT Prostate cancer (HCC) COLONOSCOPY 05/27/2024 3:23 PM CDT EGFR Timed 06/12/2023 1:46 AM CDT HEMOGLOBIN A1C Routine 05/29/2023 8:38 AM CDT Preoperative testing Type 2 diabetes mellitus without complication, without long-term current use of insulin (HCC) SERUM LIPID PANEL Routine 11/03/2013 11: 04 AM PLASTIC MOLDING OPERATOR SERUM HEPATITIS C AB Routine 10/07/2012 5:10 AM PLASTIC MOLDING OPERATOR from Last 3 Months or Most Recently Relevant to Health Maintenance Results * PSA screen (06/17/2024 11:20 AM CDT) PSA-Total 0.02 <=6.20 ng/mL Comment: Interpretive Data AGE SEX REFERENCE INTERVAL 0 minutes-150 years Female None 0 minutes-49 years Male None 50-59 years Male 0-3.90 60-69 years Male 0-5.40 70-79 years Male 0-6.20 80-150 years Male 0-6.20 The Simran PSA Total assay procedure was used. Results from different manufacturers or methods may not be comparable. Serial testing should be performed using the same method. Current interpretive data last revised 22. Blood 06/17/2024 11:2 0 AM CDT 06/17/2024 3:09 PM CDT Kameron Dos Santos NP LAB BLOOD ORDERABLES F inal Result [facility] [place] [address] [address] Department [place] [address] * Colonoscopy (05/27/2024 3:23 PM CDT) Anatomical Region Laterality Modality Other Narrative Procedure Note Alexander Holley MD - 05/27/2024 3:23 PM CDT ENDOSCOPY LAB Patient Name: Campbell Coronado Procedure Date: 05/27/2024 3:23 PM Admit Type: Outpatient Room: [facility] 2 Date of : 1950 Instrument Name: [id number] Gender: Male Note Status: Finalized Procedure: Colonoscopy Indications: High risk colon cancer surveillance: Personalhistory of colonic polyps, Last colonoscopy: February 2019 Providers: Alexander Holley M.D. Referring MD: Gavino Gibbs M.D. Medicines: Propofol per Anesthesia Complications: No immediate complications. Estimated Blood Loss: Estimated blood loss was minimal. Procedure: Pre-Anesthesia Assessment: - The risks and benefits of the procedure and the sedation options and risks were discussed with the patient. All questions were answered and informed consent was obtained. The benefits, risks and alternatives of theprocedure and sedation were discussed and informed consentwas obtained. All questions were answered. Please referto the signed informed consent document in the medical record. The scope was passed under direct vision.The Colonoscope was introduced through the anus and advanced to the the cecum, identified byappendiceal orifice and ileocecal valve. The colonoscopy was somewhat difficult due to significant looping. Successful completion of the procedure was aided by applying abdominal pressure. The patient toleratedthe procedure well. The quality of the bowelpreparation was good. The quality of the bowel preparation was evaluated using the BBPS ([place] Bowel Preparation Scale) with scores of: Right Colon = 2 (minoramount of residual staining, small fragments of stooland/or opaque liquid, but mucosa seen well), TransverseColon = 3 (entire mucosa seen well with no residual staining, small fragments of stool or opaqueliquid) and Left Colon = 3 (entire mucosa seen well with no residual staining, small fragments of stool oropaque liquid). The total BBPS score equals 8. The qualityof the bowel preparation was good. The bowelpreparation used was polyethylene glycol (PEG) via split dose instruction. AI Technology was utilized during the procedure to aid in polyp detection. Findings: A 6 mm polyp was found in the ascending colon. The polyp was sessile. The polyp was removed with a cold snare. Resection and retrieval were complete. A 3 mm polyp was found in the rectum. The polyp was sessile. Thepolyp was removed with a jumbo cold forceps. Resection and retrieval were complete. A 4 mm polyp was found in the rectum. The polyp was sessile. Thepolyp was removed with a cold snare. Resection and retrieval werecomplete. The exam was otherwise without abnormality on direct and retroflexion views. Impression: - One 6 mm polyp in the ascending colon, removedwith a cold snare. Resected and retrieved. - One 3 mm polyp in the rectum, removed with ajumbo cold forceps. Resected and retrieved. - One 4 mm polyp in the rectum, removed with a cold snare. Resected and retrieved. - The examination was otherwise normal on directand retroflexion views. Recommendation: - Await pathology results. - Repeat colonoscopy in 5 years for surveillance if health is good at that time. Electronically signed by Alexander Holley MD Alexander Holley M.D. 05/27/2024 4:35:03 PM This document was signed electronically. Number of Addenda: 0 Note Initiated On: 05/27/2024 3:23 PM Scope Withdrawal Time: 0 hours 9 minutes 39 seconds Scope In: 3:49:35 PM Scope Out: 4:14:55 PM us Alexander Holley MD ENDOSCOPY PROCEDURES Final Result * eGFR (06/12/2023 1:46 AM CDT) eGFR 79 mL/min/1. 73 m2 WARNER LYCUATE Comment: Interpretive Data Reference Interval Normal >/= 90 mL/min/1.73m2 Mildly decreased* 60 - 89 mL/min/1.73m2 Mildly to moderately decreased 45 - 59 mL/min/1.73m2 Moderately to severely decreased 30 - 44 mL/min/1.73m2 Severely decreased 15 - 29 mL/min/1.73m2 Kidney Failure < 15 mL/min/1.73m2 *Relative to young adult level Estimated glomerular filtration rate is determined by the 2020 CKD-EPI equation recommended by the National Kidney Foundation (A Unifying Approach to GFR Estimation: Recommendations of the NKF-ASK Task Force on Reassessing the Inclusion of Race in Diagnosing Kidney Disease, JASN 2020). The CKD-EPI equation should not be used for patients with unstable renal function and has not been validated in children and those over 70. Current interpretive data was last reviewed 2021. Blood 06/12/2023 1:46 AM CDT 06/12/2023 1:51 AM CDT us Christian Roy MD LAB BLOOD ORDERABLES Final Resu lt Performing Organization Address [facility] de Phone Number [facility] [address] [facility] [place] [address] * (ABNORMAL) Hemoglobin A1c (05/29/2023 8:38 AM CDT) [facility] Hgb A1C 6.5(H) 4.0 - 5.6 % WARNER VARNER Estimated Average Glucose 140 mg/dL WARNER VARNER Comment: The ADA recommends reporting an estimated Average Glucose (eAG) with all Hemoglobin A1c results using the equation derived from a study of 507 normal and diabetic adults. Minority populations were underrepresented and children were not included. (Diabetes Care 31:3918-0219, 2008). The eAG is not equivalent to a fasting glucose. Blood 05/29/2023 8:38 AM CDT 05/29/2023 8:47 AM CDT us Teena Henao NP LAB BLOOD ORDERABLE S Final Result Performing Organization Address [facility] Co de Phone Number WARNER [facility] [id number] [facility]. Department [place] [address] * Serum lipid panel (11/03/2013 11:04 AM PLASTIC MOLDING OPERATOR) Cholesterol 154 0 - 200 mg/dl HISTORICAL RESULTS Comment: Interpretive Data Desirable: <200 mg/dL Borderline high: 200-239 mg/dL High: >240 mg/dL Literature Reference: National Cholesterol Education Program (NCEP) Expert Panel on Detection, Evaluation, and Treatment of High Blood Cholesterol in Adults (Adult Treatment Panel III). Circulation 2004; 110:227. Current interpretive data was last revised on 2005. Triglycerides 144 0 - 150 mg/dl HISTORICAL RESULTS Comment: Interpretive Data Desirable: < 150 mg/dL Borderline High: 150 - 199 mg/dL High: > 200 mg/dL Literature Reference: See Cholesterol Current interpretive data was last revised on 07. HDL 48 40 - 199 mg/dl HISTORICAL RESULTS Comment: Interpretive Data Less than 40 mg/dL - low; A major risk factor for heart disease. Greater than or equal to 60 mg/dL - High; considered protective of heart disease. Literature Reference: See Cholesterol Current interpretive data was last revised on 2008. LDL 77 0 - 129 mg/dl HISTORICAL RESULTS Comment: Interpretive Data Optimal: < 100 mg/dL Near Optimal: 100 - 129 mg/dL Borderline High: 130 - 159 mg/dL High: > 160 mg/dL Literature Reference: See Cholesterol Current interpretive data was last revised on 07. Non-HDL cholesterol, calculated 106 mg/dl HISTORICAL RESULTS Comment: Interpretive Data When triglycerides are >200 mg/dL, non-HDL C is a secondary target of therapy, with a goal 30 mg/dL higher than the identified LDL-C goal. Reference: See Cholesterol Reference. Current interpretive data was last revised 2012. Serum 11/03/2013 11:0 4 AM PLASTIC MOLDING OPERATOR us Wayne Corona MD LAB BLOOD ORDERABLES Karishma weinberg Result HISTORICAL RESULTS * Serum Hepatitis C ab (10/07/2012 5:10 AM PLASTIC MOLDING OPERATOR) HCV ab Negative NEG HISTORICAL RESULTS Serum 10/07/2012 5:10 AM PLASTIC MOLDING OPERATOR Narrative HISTORICAL RESULTS - 10/07/2012 8:26 AM PLASTIC MOLDING OPERATOR LAB Frequency Standing Order? No Expiration Date: Interpretive Data If confirmation is required, call Laboratory Customer Service to request sample to be sent to [facility] for Hepatitis C Virus (HCV) RNA Detection and Quantitation by Real-Time Reverse Executive Chairman-PCR (RT-PCR). Current interpretive data was last revised on 2011 us Wayne Corona MD LAB BLOOD ORDERABLES Karishma weinberg Result HISTORICAL RESULTS from Last 3 Months or Most Recently Relevant to Health Maintenance Insurance [facility] MEDIC[facility] ADVANTAGE [facility] MEDIC[facility] ADV[facility]AGE Advance Directives For more information, please contact: [phone] * Full Code (Latest Code Status on File) Date Activated Date Inactivated Comments 05/27/2024 2:21 PM 05/27/2024 9:17 PM * Full Code Date Activated Date Inactivated Comments 06/11/2023 3:42 PM 06/12/2023 3:24 PM Care Teams Director Title Relationship Specialty Start Date End Date Soy Juan DO [address] [address] PCP - General Internal Medicine 05/17/24
--- OUTSIDE RECORDS SUMMARY | 2024-12-29 15:08 | XMS_ITS | Referral Summary ---
Author Organization [facility] Address [address] [place] [phone] Care Team Providers Care Lens Blank Gauger Name Role Phone Soy Juan DO Primary Care Provider [phone] Encounters Date Type Department Care Team Description 11/17/2024 1:40 PM ATTENDANT COIN OPERATED LAUNDRY Telemedicine [facility] Urology [address] [place] [address] Kameron Dos Santos NP Prostate cancer (HCC); Erectile dysfunction after radical prostatectomy from Last 3 Months Allergies Active Allergy Reactions Criticality Noted Date [...] 10/01/2010 Encounter for preventive health examination 08/30 Social History Tobacco Use Types Packs/Day Years [...] on file Legal Sex Male 1:23 PM ATTENDANT COIN OPERATED LAUNDRY Gender Identity Male 06/13/2021 12:16 PM CDT Sexual Orientation Straight 06/13/2021 12 :16 PM CDT Last Filed Vital Signs Vital Sign Reading Time Taken Comments Blood Pressure 140/82 08/19/2024 11:06 AM ATTENDANT COIN OPERATED LAUNDRY Pulse 64 08/19/2024 11:06 AM ATTENDANT COIN OPERATED LAUNDRY Temperature 36.1 C (96.9 F) 05/27/2024 2:37 PM CDT Respiratory Rate 21 05/27/2024 4:50 PM CDT Oxygen Saturation 97% 08/19/2024 11:06 AM ATTENDANT COIN OPERATED LAUNDRY Inhaled Oxygen Concentration - - Weight 99.3 kg (219 lb) 08/19/2024 11:06 AM ATTENDANT COIN OPERATED LAUNDRY Height 172.7 cm (5' 8 ) 08/19/2024 11:06 AM ATTENDANT COIN OPERATED LAUNDRY Body Mass Index 33.3 08/19/2024 11:06 AM ATTENDANT COIN OPERATED LAUNDRY Plan of Treatment Not on file Procedures Procedure Name Priority Date/Time Associated Diagnosis Comments PSA SCREEN Routine 06/17/2024 11:20 AM CDT Prostate cancer (HCC) COLONOSCOPY 05/27/2024 3:23 PM CDT EGFR Timed 06/12/2023 1:46 AM CDT HEMOGLOBIN A1C Routine 05/29/2023 8:38 AM CDT Preoperative testing Type 2 diabetes mellitus without complication, without long-term current use of insulin (HCC) SERUM LIPID PANEL Routine 11/03/2013 11: 04 AM ATTENDANT COIN OPERATED LAUNDRY SERUM HEPATITIS C AB Routine 10/07/2012 5:10 AM ATTENDANT COIN OPERATED LAUNDRY from Last 3 Months or Most Recently [...] 0 AM CDT 06/17/2024 3:09 PM CDT us Kameron Dos Santos NP LAB BLOOD ORDERABLES F inal Result WARNER [address] [address] Department [place] [address] * Colonoscopy (05/27/2024 3:23 PM CDT) Anatomical Region Laterality Modality Other Narrative Procedure Note Alexander Holley MD - 05/27/2024 3:23 PM CDT ENDOSCOPY LAB Patient Name: Campbell Coronado Procedure Date: 05/27/2024 3:23 PM Admit Type: Outpatient Room: [facility] Date of : 1950 Instrument Name: [id number] Gender: Male Note Status: Finalized Procedure: Colonoscopy Indications: High risk colon cancer surveillance: Personalhistory of colonic polyps, Last colonoscopy: February 2019 Providers: Alexander Hollye M.D. Referring MD: Gavino Gibbs M.D. Medicines: [...] bowel preparation was evaluated using the BBPS ([place] Bowel Preparation Scale) with scores of: Right [...] CDT) eGFR 79 mL/min/1. 73 m2 WARNER VARNER Comment: Interpretive Data Reference Interval Normal >/= [...] 1:46 AM CDT 06/12/2023 1:51 AM CDT Christian Roy MD LAB BLOOD ORDERABLES Final Resu lt SAMIAJAMIE LYCH [address] [facility] [place] [address] * (ABNORMAL) Hemoglobin A1c (05/29/2023 8:38 AM CDT) Hgb A1C 6.5(H) 4.0 - 5.6 % WARNER VARNER Estimated Average Glucose 140 mg/dL WARNER VARNER Comment: The ADA recommends reporting an estimated Average Glucose (eAG) with all Hemoglobin A1c results using the equation derived from a study of 507 normal and diabetic adults. Minority populations were underrepresented and children were not included. (Diabetes Care 31:7335-2498, 2008). The eAG is not equivalent to a fasting glucose. Blood 05/29/2023 8:38 AM CDT 05/29/2023 8:47 AM CDT us Teena Henao NP LAB BLOOD ORDERABLE S Final Result [facility] [address] [facility]. [place] [address] * Serum lipid panel (11/03/2013 11:04 AM ATTENDANT COIN OPERATED LAUNDRY) Cholesterol 154 0 - 200 mg/dl HISTORICAL [...] revised 2012. Serum 11/03/2013 11:0 4 AM ATTENDANT COIN OPERATED LAUNDRY Wayne Corona MD LAB BLOOD ORDERABLES Karishma l Result HISTORICAL RESULTS * Serum Hepatitis C ab (10/07/2012 5:10 AM ATTENDANT COIN OPERATED LAUNDRY) HCV ab Negative NEG HISTORICAL RESULTS Serum 10/07/2012 5:10 AM ATTENDANT COIN OPERATED LAUNDRY Narrative HISTORICAL RESULTS - 10/07/2012 8:26 AM ATTENDANT COIN OPERATED LAUNDRY LAB Frequency Standing Order? No Expiration Date: Interpretive Data If confirmation is required, call Laboratory Customer Service to request sample to be sent to [facility] for Hepatitis C Virus (HCV) RNA Detection and Quantitation by Real-Time Reverse Senior Hardware Engineer-PCR (RT-PCR). Current interpretive data was last revised on 2011 Wayne Corona MD LAB BLOOD ORDERABLES Karishma l Result Performing Organization Address City/[facility] Co de Phone Number HISTORICAL RESULTS from Last 3 Months or Most Recently Relevant to Health Maintenance Insurance [facility] MEDICARE ADVANTAGE [place] [id number] UHC MEDICARE ADVANTAGE [id number] Advance Directives For more information, please contact: [phone] * Full Code (Latest Code Status on File) Date Activated Date Inactivated Comments 05/27/2024 2:21 PM 05/27/2024 9:17 PM * Full Code Date Activated Date Inactivated Comments 06/11/2023 3:42 PM 06/12/2023 3:24 PM Care Teams Lens Blank Gauger Relationship Specialty Start Date End Date Soy Juan DO [address] [place] [phone] PCP - General Internal Medicine 05/17/24
--- OUTSIDE RECORDS SUMMARY | 2024-12-29 15:08 | XMS_ITS | Encounter Summary ---
Author Organization [facility] Address [address] [place] [address] Care Team Providers Care Wound Nurse Name Role Phone Laura Yates MD Unavailable [phone] Encounter Details Date Type Department Care Team (Late st Contact Info) Description 11/27/2023 Lab Requisition [facility] - DermPath Lab [address], [place] [phone] Jv Asencio MD [facility] DERMATOLOGY [address] [place] [phone] Neoplasm of uncertain behavior of skin Social History Tobacco Use Types Packs/Day Years Used Date Smoking Tobacco: Never Alcohol Use Standard Drinks/Week Comments No 0 (1 standard drink = 0.6 oz pur e alcohol) Sex and Gender Information Value Date Recorded Sex Assigned at Not on file Gender Identity Not on file Sexual Orientation Not on file documented as of this encounter Plan of Treatment Not on file documented as of this encounter Procedures Procedure Name Priority Date/Time Associated Diagnosis Comments DERMATOPATHOLOGY Routine 11/27/2023 3:33 AM INSIDE ACCOUNT EXECUTIVE Neoplasm of uncertain behavior of skin documented in this encounter Results * DERMATOPATHOLOGY (11/27/2023 3:33 AM INSIDE ACCOUNT EXECUTIVE) Case Report Dermatopathology Report Case: [id number] Authorizing Provider: Jv Asencio MD Collected: 11/27/2023 03:33 AM Ordering Location: [facility] Lab Received: 11/28/2023 12:42 PM Pathologist: Silvia Madden MD Specimen: Skin, left mid back 3:03 PM INSIDE ACCOUNT EXECUTIVE DERMATOPATHOLOGY LABORATORY Final Diagnosis Specimen A. SKIN, left mid back: BENIGN VERRUCOUS KERATOSIS, INFLAMED (L82.1)' 4 3:03 PM [facility] DERMATOPATHOLOGY LABORATORY Clinical History Squamous Cell Carcinoma vs. Irritated Seborrheic Keratosis 3:03 PM [facility] DERMATOPATHOLOGY LABORATORY Gross Description Specimen A: Received is one formalin filled container labeled with the patient's name and designated left mid back. The specimen consists of a shave biopsy measuring 10x7x3 mm. Jar 0. 3:03 PM [facility] DERMATOPATHOLOGY LABORATORY Microscopic Description Specimen A. SKIN, left mid back: Sections show hyperkeratosis, papillomatosis, hypergranulosis, and acanthosis. Inflammatory cells are present within the dermis. These histological findings can be seen in a verruca vulgaris or a seborrheic keratosis. 3:03 PM [facility] DERMATOPATHOLOGY LABORATORY Disclaimer An external and internal positive and negative controls are appropriate for the histochemical, immunohistochemical and immunofluorescence stain(s) in this case (if any), except where stated explicitly. The performance characteristics of the stain(s) cited in this report were developed and its performance characteristic determined by the Dermatopathology Laboratory at [facility], directed by Dr. Sierra Martinez. These tests need not be, and therefore are not, approved by the [place] Food and Drug Administration. The tests are used for clinical purposes. Billing Codes Specimen Charges Stain Charges 88218 1 3:03 PM [facility] DERMATOPATHOLOGY LABORATORY Embedded Images 3:03 PM [facility] DERMATOPATHOLOGY LABORATORY Pathology/Cytolo gy TISSUE SPECIMEN FROM SKIN / Unknown 11/27/2023 3:33 AM INSIDE ACCOUNT EXECUTIVE 11/28/2023 12:42 PM [facility] Jv Asencio MD LAB - PATHOLOGY/CYTO LOGY ORDERABLES DERMATOPATHOLOGY LABORATORY [facility] - Department of Dermatology [address] [phone] documented in this encounter Visit Diagnoses Diagnosis Neoplasm of uncertain behavior of skin documented in this encounter Care Teams Wound Nurse Relationship Specialty Start Date End Date Laura Yates MD Orthopedic Surgery 05/18/14 documented as of this encounter
--- OUTSIDE RECORDS SUMMARY | 2024-12-29 15:08 | XMS_ITS | Encounter Summary ---
Author Organization [facility] Address [address] [facility] [place] [address] Care Team Providers Care Corporate Aircraft Mechanic Name Role Phone Laura Yates MD Unavailable [phone] Encounter Details Date Type Department Care Team (Late st Contact Info) Description 09/02/2024 Lab Requisition [facility] - DermPath Lab [address] [facility] [place] [phone] Jv Asencio MD [facility] DERMATOLOGY [address] [place] [phone] Neoplasm of uncertain behavior of skin [...] Priority Date/Time Associated Diagnosis Comments DERMATOPATHOLOGY Routine 09/02/2024 12:0 0 AM POISING INSPECTOR Neoplasm of uncertain behavior of skin documented in this encounter Results * DERMATOPATHOLOGY (09/02/2024 12:00 AM POISING INSPECTOR) Case Report Dermatopathology Report Case: [id number] Authorizing Provider: Jv Asencio MD Collected: 09/02/2024 12:00 AM Ordering Location: [facility] - Received: 09/06/2024 01:59 PM DermPath Lab Pathologist: Halle Chapman MD Specimens: A) - Skin, right zygoma B) - Skin, right outer canthus C) - Skin, left lower cheek D) - Skin, left [place] of antihelix 2:23 PM [facility] DERMATOPATHOLOGY LABORATORY Final Diagnosis Specimen A. SKIN, right zygoma: SQUAMOUS CELL CARCINOMA, ACANTHOLYTIC TYPE (C44.329) Specimen B. 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 SKIN, left lower cheek: ACTINIC KERATOSIS (L57.0) Specimen D. SKIN, left [place] of antihelix: SQUAMOUS CELL CARCINOMA IN SITU, PRESENT AT THE BASE OF THE SPECIMEN (D04.22) (see microscopic description and comment) 2:23 PM [facility] DERMATOPATHOLOGY LABORATORY Clinical History BCC vs SCC 2:23 PM [facility] DERMATOPATHOLOGY LABORATORY Gross Description Specimen A: Received is one formalin filled container labeled with the patient's name and designated right zygoma. The specimen consists of a shave biopsy measuring 9x7x2 mm. Jar 0. Specimen B: Received is one formalin filled container labeled with the patient's name and designated right outer canthus. The specimen consists of a shave biopsy measuring 4x4x1 mm. Jar 0. Specimen C: Received is one formalin filled container labeled with the patient's name and designated left lower cheek. The specimen consists of a shave biopsy measuring 5x5x1 mm. Jar 0. Specimen D: Received is one formalin filled container labeled with the patient's name and designated left [place] of antihelix. The specimen consists of a shave biopsy measuring 4x3x1 mm. Jar 0. 2:23 PM [facility] DERMATOPATHOLOGY LABORATORY Microscopic Description Specimen A. SKIN, right zygoma: Sections show skin with irregularly shaped nests of keratinocytes with evidence of cornification. In some nests, there is loss of cohesion between the neoplastic cells, as well as individual dyskeratotic cells that lack intercellular bridges. Specimen B. SKIN, right outer canthus: The epidermis shows parakeratosis, full thickness disorderly maturation of keratinocytes, mitoses at different levels, and dyskeratotic cells. Specimen C. SKIN, left lower cheek: There is focal parakeratosis. The lower half of the epidermis shows disorderly maturation of keratinocytes with nuclear pleomorphism. Specimen D. SKIN, left [place] of antihelix: The epidermis shows parakeratosis, full thickness disorderly maturation of keratinocytes, mitoses at different levels, and dyskeratotic cells. The lesion extends to the base of the biopsy. COMMENT: An invasive squamous cell carcinoma cannot be ruled out. 4 2:23 PM POISING INSPECTOR DERMATOPATHOLOGY LABORATORY Disclaimer An external and internal positive and negative controls are appropriate for the histochemical, immunohistochemical and immunofluorescence stain(s) in this case (if any), except where stated explicitly. The performance characteristics of the stain(s) cited in this report were developed and its performance characteristic determined by the Dermatopathology Laboratory at [facility], directed by Dr. Sierra Martinez. These tests need not be, and therefore are not, approved by the [place] Food and Drug Administration. The tests are used for clinical purposes. Billing Codes Specimen Charges Stain Charges 76789 [id number] 1 1 1 1 4 2:23 PM POISING INSPECTOR DERMATOPATHOLOGY LABORATORY Embedded Images 4 2:23 PM POISING INSPECTOR DERMATOPATHOLOGY LABORATORY Pathology/Cytology TISSUE SPECIMEN FROM SKIN / Unknown 09/02/2024 09/06/2024 1:59 PM POISING INSPECTOR Miscellaneous samples (specimen) TISSUE SPECIMEN FROM SKIN / Unknown 09/02/2024 09/06/2024 1:59 PM POISING INSPECTOR Miscellaneous samples (specimen) TISSUE SPECIMEN FROM SKIN / Unknown 09/02/2024 09/06/2024 1:59 PM POISING INSPECTOR Miscellaneous samples (specimen) TISSUE SPECIMEN FROM SKIN / Unknown 09/02/2024 09/06/2024 1:59 PM POISING INSPECTOR Jv Asencio MD LAB - PATHOLOGY/CYTO LOGY ORDERABLES DERMATOPATHOLOGY LABORATORY [facility] - Department of Dermatology [address] [phone] documented in this encounter Visit Diagnoses Diagnosis Neoplasm of uncertain behavior of skin documented in this encounter Care Teams Corporate Aircraft Mechanic Relationship Specialty Start Date End Date Laura Yates MD Orthopedic Surgery 05/18/14 documented as of this encounter
--- OUTSIDE RECORDS SUMMARY | 2024-12-29 15:08 | XMS_ITS | Data Portability ---
Author Organization [place] [facility] , Main Office- [place] Address [address] [place] [address] Assessment No assessment recorded. Plan of Treatment [...] Modified By Organization Details Last Modified Time 03/07/2023 2422 I discussed with Demetrio that based on the subjective information that he told me along with the findings of the physical exam, I believe he may have some soft tissue damage in his knee. I would like to get an MRI to rule this out, specifically meniscus injury. Once we have the results of this we will follow-up with him to go over those and come up with a treatment plan moving forward. I instructed him to contact our office with any questions or concerns. He voiced understanding and agreed with this plan of care. Patient was seen by Danielle Almanzar NP, and the diagnoses, problems and treatment plan for the patient has been reviewed and approved by me, Dr. Rosendo Metzger. [email or web address] Not available 03/10/2023 16:55:53 06/20/2023 6420 I discussed with Demetrio that his MRI shows that he has a meniscus tear in his knee. I told him that this is something that can be fixed if it is bothersome, but it is not something that has to be surgically repaired. He says that his symptoms come and go and he has figured out that squatting down onto his knees to pull weeds and work in the garden seems to be what exacerbates his pain and swelling. He is just now getting over a surgery to remove his prostate and lymph nodes due to prostate cancer, so his knee is not the most important thing that he is worried about right now. He said that he is going to think about it and if he decides that he wants to do something to fix the meniscus tear, he will contact us in the future and let us know and we can move forward from that point. As of right now, he is just going to use conservative measures to treat his symptoms. I told him that we would follow-up with him on an as-needed basis and to contact us with any questions or concerns. He voiced understanding and agreed with this plan of care. Patient was seen by Danielle Almanzar NP, and the diagnoses, problems and treatment plan for the patient has been reviewed and approved by me, Dr. Rosendo Metzger. [email or web address] Not available 06/20/2023 15:23:52 Reason for Referral None Reported. Results Created Date Observation Date Name Description Value Unit Range Abnormal Flag Note LastModifiedBy Organization Detail LastModifiedTime 03/07/2003/07/2023 XR, knee No observ ation record ed. [address] [address] [place], [address], 03/07/2023 11:31:53 04/21/20 23 04/21/2023 MRI, lower extre mity joint (s), w/o contr ast No observ ation record ed. [address] [address] [place], [address], 04/21/2023 16:22:51 Result Notes None recorded. Problems Name Problem SNOMED Code Status Onset Date Resolution Date Notes Provider Name and Address Organization Details Recorded Time Hypertensiv e disorder 89088379 Active 2022 efrem pham, [place] - [facility] 3 10:23:23 Diabetes mellitus 65346572 Active 2022 efrem pham, [place] - [facility] 3 10:23:27 Pain of right knee joint 3197780426397 00 Active 2022 DANIELLE ALMANZAR, DAVID [address] [place], [address], [place] [facility] 3 16:54:19 Tear of medial meniscus of knee 968028563 Active 2022 DANIELLE ALMANZAR, ENVIRONMENTAL INSPECTOR [address] [place], [address], [place] [facility] 3 15:25:14 Problem Notes None recorded. Procedures Surgical History Date Name Laterality Status Provider Name and Address Organization Details Recorded Time arthroscopy completed [facility] [place] - [facility] 02/14/2023 10:25:42 extraction of cataract completed [facility] - [facility] 02/14/2023 10:25:56 Imaging Results Imaging Date Name Status LastModified by Zoltan gomez Details LastModified Time 03/07/2023 XR, knee completed [address] [address] [place], [address], 03/07/2023 11:31:53 04/21/2023 MRI, lower extremity joint(s), w/o contrast completed [id number] [place] [address], [address], 04/21/2023 16:22:51 Procedure Notes None recorded. Medical Equipment None Reported. Allergies Allergen ID Allergen Name Allergen Category Reaction Reaction Severity Criticality Documentation Date Start Date Code Code System Note Provider Name and Address Organization Details Recorded Time 1728 Substance with sulfonami de structure and antibacte rial mechanism of action (substanc e) medicatio n Not available Not available Not available 02/14/2023 08570 8003 SNOMED efrem[facility]oney [facility], [place] - [facility] 3 10:22:52 1729 Product containin g penicilli n (product) medicatio n Not available Not available Not available 02/14/2023 59866 8001 SNOMED efremhoney [facility], [place] - [facility] 3 10:23:02 1730 Levaquin medicatio n Not available Not available Not available 02/14/2023 15964 2 RxNorm efrem [facility], [place] - [facility] 3 10:23:08 Medications Name Sig Start Date Stop Date Status Note LastModified by Organization Details LastModified Time mm acetaminophe n 500mg tab TAKE 2 TABLETS BY MOUTH EVERY 6 HOURS NEEDED FOR PAIN active Not Available Not Available No t Available doxycycline hyclate 100 mg capsule active Not Available Not Available N ot Available cefuroxime axetil 250 mg tablet TAKE 1 TABLET BY MOUTH EVERY 12 HOURS active Not Available Not Available No t Available ketoconazole 2 % shampoo USE SHAMPOO ON SCALP AND NECK ONCE DAILY FOR 2 TO 3 WEEKS, THEN 2 TO 3 TIMES PER WEEK FOR CONTROL. LEAVE ON FOR 5 MINUTES AND RINSE. active Not Available Not Available No t Available azithromycin 250 mg tablet TAKE 2 TABLETS BY MOUTH ON DAY 1, AND THEN TAKE 1 TABLET BY MOUTH ONCE A DAY ON DAY 2 THROUGH DAY 5 active Not Available Not Available No t Available fluorouracil 5 % topical cream APPLY TO ARMS TWICE DAILY FOR 4 WEEKS AND APPLY TO SCALP TWICE DAILY FOR 2 WEEKS active Not Available Not Available No t Available glipizide ER 5 mg tablet, extended release 24 hr TAKE 1 TABLET BY MOUTH TWICE DAILY IN THE MORNING AND IN THE EVENING WITH MEALS active Not Available Not Available N ot Available prednisolone acetate 1 % eye drops,suspen elida INSTILL 1 DROP INTO EACH EYE THREE TIMES DAILY FOR 2 WEEKS active Not Available Not Available No t Available lorazepam 0.5 mg tablet TAKE 1 TABLET BY MOUTH ONCE FOR 1 DOSE. TAKE 30 MINUTES PRIOR TO MRI active Not Available Not Available No t Available tamsulosin 0.4 mg capsule TAKE 1 CAPSULE BY MOUTH ONCE DAILY active Not Available Not Available No t Available cephalexin 500 mg capsule TAKE 1 CAPSULE BY MOUTH A ONE TIME DOSE. TAKE 2 HOURS BEFORE YOUR CATHETER IS REMOVED. active Not Available Not Available No t Available docusate sodium 100 mg capsule TAKE 1 CAPSULE BY MOUTH TWICE DAILY NEEDED FOR CONSTIPATIO N FOR UP TO 7 DAYS active Not Available Not Available No t Available lorazepam 1 mg tablet TAKE 1 TABLET BY MOUTH 12 HOURS BEFORE IMAGING, THEN TAKE 1 ADDITIONAL TABLET 1 HOUR BEFORE IMAGING. active Not Available Not Available No t Available ibuprofen 600 mg tablet TAKE 1 TABLET BY MOUTH EVERY 6 HOURS NEEDED FOR PAIN active Not Available Not Available No t Available oxycodone 5 mg tablet TAKE 1 TABLET BY MOUTH EVERY 6 HOURS NEEDED FOR PAIN active Not Available Not Available No t Available losartan 100 mg-hydrochlo rothiazide 12.5 mg tablet TAKE 1 TABLET BY MOUTH ONCE DAILY active Not Available Not Available No t Available Vitals Date Recorded Body height Body mass index (BMI) Body weight Body temperature Heart rate Systolic blood pressure Diastolic blood pressure Provider Name and Address Organization Details Last Updated DateTime 3 172.72 cm 34.2 kg/m2 052406. 56 g 98.4 [degF] 55 /min 148 mm[Hg] 89 mm[Hg] Aiyana Holman [place] - [facility] 3 10:22:39 Date Recorded Body height Body mass index (BMI) Body weight Body temperature Heart rate Systolic blood pressure Diastolic blood pressure Provider Name and Address Organization Details Last Updated DateTime 3 172.72 cm 42.3 kg/m2 868060. 68 g 97.1 [degF] 68 /min 124 mm[Hg] 73 mm[Hg] Mavis Pallavi [place] - [facility] 3 11:17:29 Social History Question Answer Notes LastModified by Organizat ion Details LastModified Time Tobacco Smoking Status Never Smoker efrem pham [place] [facility] 02/14/2023 10:24:01 Do You Have An Advance Directive? Yes [email or web address] Information n ot available 02/14/2023 What Is Your Level Of Alcohol Consumption? Moderate [email or web address] Information not available 02/14/2023 Are You Blind Or Do You Have Difficulty Seeing? No [email or web address] Information n ot available 02/14/2023 Is Blood Transfusion Acceptable In An Emergency? Yes [email or web address] Information not available 02/14/2023 What Is Your Level Of Caffeine Consumption? None [email or web address] Information not available 02/14/2023 In The 14 Days Before Symptom Onset, Have You Had Close Contact With A Laboratory-confirm ed COVID-19 While That Case Was Ill? No [email or web address] Information n ot available 02/14/2023 In The 14 Days Before Symptom Onset, Have You Had Close Contact With A Person Who Is Under Investigation For COVID-19 While That Person Was Ill? No [email or web address] Information not available 02/14/2023 Have You Been To An Area Known To Be High Risk For COVID-19? No [email or web address] Information not available 02/14/2023 Are You Currently Employed? No [email or web address] Information not available 02/14/2023 Are You Deaf Or Do You Have Serious Difficulty Hearing? No [email or web address] Information not available 02/14/2023 What Type Of Diet Are You Following? REGULAR [email or web address] Information n ot available 02/14/2023 Have You Processed Blood Or Body Fluids From An Ebola Virus Disease Patient Without Appropriate PPE? No Information not available 02/14/2023 Do You Reside In Or Have You Traveled To An Area Where Ebola Virus Transmission Is Active? No [email or web address] Information not available 02/14/2023 What Is The Highest Grade Or Level Of School You Have Completed Or The Highest Degree You Have Received? [id number] [email or web address] Information not available 02/14/2023 Are There Any Guns Present In Your Home? No [email or web address] Information not available 02/14/2023 Which Of Your Hands Is Dominant? Right [email or web address] Information n ot available 02/14/2023 What Is Your Relationship Status? [email or web address] Information not available 02/14/2023 Do You Use Your Seat Belt Or Car Seat Routinely? Yes Information not available 02/14/2023 Are You Sexually Active? No [email or web address] Information not available 02/14/2023 Do You Have Smoke And Carbon Monoxide Detectors In Your Home? Yes [email or web address] Information not available 02/14/2023 Do You Feel Stressed (tense, Restless, Nervous, Or Anxious, Or Unable To Sleep At Night)? [id number] [email or web address] Information not available 02/14/2023 Do You Use Any Illicit Or Recreational Drugs? No [email or web address] Information not available 02/14/2023 Do You Use Sunscreen Routinely? Yes [email or web address] Information not available 02/14/2023 Do You Or Have You Ever Used Any Other Forms Of Tobacco Or Nicotine? No [email or web address] Information not available 02/14/2023 Sex: Male Functional Status Question Answer Note LastModified by Organizat ion Details LastModified Time Do you have difficulty walking or climbing stairs? No [email or web address] Information not available 02/14/2023 Are you able to walk? YESWOREST [email or web address] Information not available 02/14/2023 Do you have difficulty doing errands alone? No [email or web address] Information not available 02/14/2023 Are you able to care for yourself? Yes Information not available 02/14/2023 Do you have difficulty dressing or bathing? No [email or web address] Information not available 02/14/2023 What is your exercise level? Occasional [email or web address] Information not available 02/14/2023 Mental Status Question Answer Note LastModified by Organization D etails LastModified Time Do you have difficulty concentrating, remembering or making decisions? No [email or web address] Information no t available 02/14/2023 Family History Relationship Description Onset Age of this Age Resolved Age Notes LastModified by Organization Details LastModified Time Father No current problems or disability [email or web address] Not available 02/14 10:23:32 Mother No current problems or disability [email or web address] Not available 02/14 10:23:32 Medical History Condition Response Coronary Artery Disease N Heart Problems N Anxiety/Depression N Gout N Blood Transfusion N Hernia N Migraines N Thyroid Problems N COPD N Pacemaker N Anemia N Heart Attack (ME) N Ulcers N Diabetes Y Bleeding Disorder N Orthotics N Arthritis N Seizures/Epilepsy N Blood Clot N Tuberculosis N AIDS/HIV N Cancer N Stroke N Asthma N Peripheral Vascular Disease N High Cholesterol N Hepatitis N Liver Disease N Rheumatoid Arthritis N Pulmonary Embolism N Hypertension Y Osteoporosis N Kidney Disease N Past Encounters Encounter ID Performer Location Encounter Start Date Encounter Closed Date Diagnosis/Indication Diagnosis SNOMED-CT Code Diagnosis ICD10 Code Diagnosis Note [id number] DANIELLE ALMANZAR [address] [address] 03/07/2023 10:07:14 03/07/2023 11:03:18 Pain of right knee joint 2049518876 08540 M25.561 [id number] DANIELLE ALMANZAR [address] [address] 06/20/2023 10:47:51 06/20/2023 12:30:35 Pain of right knee joint 6927770854 25942 M25.561 Tear of me dial meniscus of knee 392707084 S83.241A Health Concerns Section Related Observation LastModified by Organization Detai ls LastModified Time None Recorded Concern Status LastModified by Organization Details LastModified Time None Recorded Advance Directives Directive Y: Payers Encounter Date Sequence Insurance Name Policy Number Policy Roberson Covered Member ID Roberson Member ID Guarantor Name 03/07/2023 1 [facility] (MEDICARE REPLACEMENT/A DVANTAGE - HMO) [id number] Campbell Coronado [id number] Campbell Coronado 06/20/2023 1 [facility] (MEDICARE REPLACEMENT/A DVANTAGE - HMO) [id number] Campbell Marjorie Coronado [id number] Campbell Coronado Notes Date Note Type Note Provider Name and Address Organization Details Recorded Time 03/07/2023 text/html Ortho KneeReport ed bypatient.Location :right; medial Quality:sharp Severity:no pain; worst pain 8/10 Timing:recurrent Context:cannot identify Aggravating Factors:walking; twisting; bending/squatting; ROM; weight bearing Alleviating Factors:rest Associated Symptoms:no numbness; no tingling;swelling Prior Imaging:x ray Previous Injections:none Previous PT:azael Atkinson is seen in clinic today with complaints of right knee pain. He says that this occurs off and on, but it has persisted for about 10 days longer than it normally does. He says that it is located on the medial side of his knee and it is very sharp. He denies any known injury but says he has been gardening and working outside and that seemed to exacerbate it. He says that the pain has subsided today, but when it was hurting he could not bend his knee. He rated it an 8/10 at that time and said that he has swelling in the posterior knee when it is sore. The ROS is reviewed with the patient and a copy is located in the chart. DANIELLE ALMANZAR, ENVIRONMENTAL INSPECTOR [address] [place], [address], [place] [facility] 03/10/2023 16:56:48 06/20/2023 text/html Ortho KneeReport ed bypatient.Location :right; medial Quality:sharp Severity:no pain; worst pain 8/10 Timing:recurrent Context:cannot identify Aggravating Factors:walking; twisting; bending/squatting; ROM; weight bearing Alleviating Factors:rest Associated Symptoms:no numbness; no tingling;swelling Prior Imaging:x ray; MRI Previous Injections:none Previous PT:azael Atkinson is seen in clinic today for follow up of his right knee pain. He recently had an MRI and is here to get those results. He says that he is not having any pain today, but his knee is swollen. He has always wondered if he had gout and that is what has caused his knee to hurt and swell off and on, or if it was some kind of injury. DANIELLE ALMANZAR, ENVIRONMENTAL INSPECTOR [address], [place], [address], [place] [facility] 06/20/2023 15:25:43
--- OUTSIDE RECORDS SUMMARY | 2024-12-29 15:08 | XMS_ITS | Clinical Summary ---
Author Organization [facility] Address [address] [place] [address] Care Team Providers Care Manual Lathe Machinist Name Role Phone Laura Yates MD Unavailable [phone] Source Comments [facility],non-owned Affiliates and Associated Physician Practices is amultiple site organization consisting of ambulatory clinics and hospital sitesin [place], [place], [place] and [place]. This disclosure is being madepursuant to the Care Everywhere program and may not contain all information available regarding this patient. Last updated 18.[facility] Allergies Active Allergy Reactions Criticality Noted Date Comments Levofloxacin Swelling 05/18/2014 Penicillins 05/18/2014 Sulfa Drugs Rash Low 05/18/2014 Medications * Be aware that medications may not be up to date on this document. Alwaysverify current medications with the patient. Medication Sig Dispensed Refills Start Date End Date Status traMADol (ULTRAM) 50 MG tablet Take 1 Tab by mouth every 6 hours as needed for Pain. 40 Tab 0 05/19/2014 Active cephALEXin (KEFLEX) 500 MG capsule Take 1 Cap by mouth 4 times daily. 20 Cap 0 12/23/2014 Active amLODIPine (NORVASC) 5 MG tabletIndications:Bila teral knee pain 09/23/2014 Active hydrochlorothiazide (HYDRODIURIL) 25 MG tabletIndications:Bila teral knee pain 10/12/2014 Active hydrocodone-acetaminop hen (VICODIN) 5-300 MG tabletIndications:Bila teral knee pain 01/07/2015 Active naproxen sodium (ANAPROX DS) 550 MG tabletIndications:Bila teral knee pain 01/09/2015 Active Active Problems Problem Noted Date Diagnosed Date Knee pain 05/20/2014 Family History Medical History Relation Name Comments Hypertension Brother Stroke Brother Relation Name Status Comments Brother Social History Tobacco Use Types Packs/Day Years Used Date Smoking Tobacco: Never Alcohol Use Standard Drinks/Week Comments No 0 (1 standard drink = 0.6 oz pur e alcohol) Sex and Gender Information Value Date Recorded Sex Assigned at Not on file Gender Identity Not on file Sexual Orientation Not on file Last Filed Vital Signs Vital Sign Reading Time Taken Comments Blood Pressure - - Pulse - - Temperature - - Respiratory Rate - - Oxygen Saturation - - Inhaled Oxygen Concentration - - Weight 99.8 kg (220 lb) 05/18/2014 1:06 PM CDT Height 172.7 cm (5' 8 ) 05/18/2014 1:06 PM CDT Body Mass Index 33.45 05/18/2014 1:06 PM CDT Plan of Treatment Health Maintenance Due Date Last Done Comments COLOGUARD (AGES 45-75) - COL ON CA SCREENING 1948 COLON MONITORING 1948 COLONOSCOPY - COLON CA SCREENING 1948 CT COLONOGRAPHY - COLON CA SCREENING 1948 Colorectal Cancer Screening 1948 FIT - COLON CA SCREENING 1948 FLEX SIG - COLON CA SCREENING 1948 LIPID TESTING 1948 HEPATITIS C SCREENING 09/26/1966 DTAP/TDAP/TD VACCINES (1 - Tdap) 1967 PNEUMOCOCCAL VACCINE 50+ (1 of 1 - PCV) 1998 ZOSTER VACCINE (1 of 2) 1998 Respiratory Syncytial Virus (RSV) Vaccine Pt: or over 60 yrs (1 - 1-dose 75+ series) 2023 COVID-19 VACCINE ( - 2023-2 5 season) 2024 INFLUENZA VACCINE (#1) 2024 DEPRESSION SCREENING 09/29/2024 MEDICARE AWV CALENDAR YEAR 2024 HEPATITIS B VACCINE Aged Out No longe r eligible based on patient's age to complete this topic HIB VACCINE Aged Out No longer eligi ble based on patient's age to complete this topic HPV VACCINE Aged Out No longer eligi ble based on patient's age to complete this topic MENINGOCOCCAL (Group B) VACC INE SHARED DECISION-MAKING Aged Out No longer eligibl e based on patient's age to complete this topic MENINGOCOCCAL GROUPS A/C/Y/W VACCINE Aged Out No longer eligible b ased on patient's age to complete this topic Care Teams Manual Lathe Machinist Relationship Specialty Start Date End Date Laura Yates MD Orthopedic Surgery 05/18/14
--- OUTSIDE RECORDS SUMMARY | 2024-12-29 15:08 | XMS_ITS ---
Author Organization [facility] Address [address] [place] [address] Care Team Providers Care Thermoforming Machine Operator Name Role Phone Soy Juan Primary Care Provider [phone] Active Problems Problem Noted Date Diagnosed Date [...] 10/01/2010 Encounter for preventive health examination 08/30 Current Treatment and Therapy Plans No current plan information found. Past Treatment and Therapy Plans No past plan information found. Lifetime Dose Tracking * Chemical Lifetime Dose Automatic Entry Manual Entr y DLP 2,060 mGycm 2,060 mGycm 0 mGycm
--- OUTSIDE RECORDS SUMMARY | 2024-12-29 15:08 | XMS_ITS | Clinical Summary ---
Author Organization [facility] Care Team Providers Care Angledozer Operator Name Role Phone Unavailable Primary Care Provider Unavailabl e Social History Tobacco Use Types Packs/Day Years Used Date Smoking Tobacco: Never Assessed Sex and Gender Information Value Date Recorded Sex Assigned at Not on file Legal Sex Male 10:18 PM CDT Gender Identity Not on file Sexual Orientation Not on file Plan of Treatment Health Maintenance Due Date Last Done Comments Hepatitis C Virus (HCV) Screening 1950 TdaP Immunization 1948 Colonoscopy 1993 Colorectal Cancer Screening 1993 Cologuard 1998 Immunochemical Fecal Occult Blood 1998 Respiratory Syncytial Virus (RSV) Immunization (Adult) (1 - 1-dose 75+ series) 2023 Influenza Immunization (#1) 2024 10/0 04/2020, 08/21/2019, 07/16/2018, Additional history exists SARS-COV-2 Immunization ( season) 2024 01/31/2021, 01/10/2021 Pneumococcal Immunization (50+ years) Completed 06/04/2016, 06/28/2015 Zoster Immunization Completed 11/11/2019, 9 Hepatitis B Immunization Aged Out No longer eligible based on patient's age to complete this topic Meningococcal Immunization (ACWY) Aged Out No longer eligible based on patient's age to complete this topic Rotavirus Immunization Aged Out No lo nger eligible based on patient's age to complete this topic
--- OUTSIDE RECORDS SUMMARY | 2024-12-29 15:08 | XMS_ITS | Clinical Summary ---
Author Organization [facility] Address [address] [place] [address] Care Team Providers Care Order Entry Name Role Phone Gavino Gibbs MD Primary Care Provider [phone] Allergies Active Allergy Reactions Criticality Noted Date Comments Levofloxacin Swelling 12/04/2023 Penicillins Unknown 12/04/2023 Sulfa Antibiotics Hives 12/04/2023 Medications losartan-hydroCH LOROthiazide (HYZAAR) 100-12.5 MG tablet Take 1 tablet by mouth daily. Active cetirizine (ZYRTEC) 10 MG tablet Take 1 tablet (10 mg total) by mouth daily. Active vitamin C (ASCORBIC ACID) 1000 MG tablet Take 1 tablet (1,000 mg total) by mouth daily. Active Social History Tobacco Use Types Packs/Day Years Used Date Smoking Tobacco: Never Assessed Sex and Gender Information Value Date Recorded Sex Assigned at Not on file Legal Sex Male 6:43 PM CDT Gender Identity Not on file Sexual Orientation Not on file Last Filed Vital Signs Vital Sign Reading Time Taken Comments Blood Pressure 131/85 12/04/2023 8:39 PM WORK STATION SUPPORT SPECIALIST Pulse 84 12/04/2023 8:39 PM WORK STATION SUPPORT SPECIALIST Temperature 36.3 C (97.3 F) 12/04/2023 4:40 PM WORK STATION SUPPORT SPECIALIST Respiratory Rate 13 12/04/2023 5:00 PM WORK STATION SUPPORT SPECIALIST Oxygen Saturation 99% 12/04/2023 8:39 PM WORK STATION SUPPORT SPECIALIST Inhaled Oxygen Concentration - - Weight 95.4 kg (210 lb 6.4 oz) 12/04/2023 4:40 PM WORK STATION SUPPORT SPECIALIST Height 172.7 cm (5' 8 ) 12/04/2023 4:40 PM WORK STATION SUPPORT SPECIALIST Body Mass Index 31.99 12/04/2023 4:40 PM WORK STATION SUPPORT SPECIALIST Plan of Treatment Health Maintenance Due Date Last Done Comments Hepatitis C 1966 DTaP, Tdap and Td Vaccines ( 1 - Tdap) 1967 Zoster Vaccines (1 of 2) 1998 Annual Medicare Wellness Visit 2013 Pneumococcal Vaccine: 65+ Ye ars (1 of 1 - PCV) 2013 RSV Immunization or 60+ Years (1 - 1-dose 75+ series) 2023 COVID-19 Vaccine ( - 2023-2 5 season) 2024 Meningococcal B Vaccine Aged Out No l onger eligible based on patient's age to complete this topic Meningococcal Vaccine Aged Out No elgin mary eligible based on patient's age to complete this topic RSV Immunizations Under 20 Months Aged Out No longer eligible based on patient's age to complete this topic Insurance [facility] Care Teams Order Entry Relationship Specialty Start Date End Date Gavino Gibbs MD [address] [place] [address] PCP - General INTERNAL MEDICINE 03/07/23
== END 2024-12-29 13:47 | disposition home or self-care (01) ==
PROVIDERS: PCP Nurse Practitioner; Visit Provider Nurse Practitioner
DX: M47.816 Spondylosis without myelopathy or radiculopathy, lumbar region (principal)
CPT/HCPCS: 72100

== ENCOUNTER 2025-01-21 13:33 | Outpatient (CLI) | payer MEDICARE, SELFPAY ==
--- NOTE | ~2025-01-21 | MR_ITS ---
Procedure: MR lumbar spine wo con Ordering provider: Perry Mathis APRN History: . M54.50 - Low back pain, unspecified . Comparison: None. Technique: MRI of lumbar spine without contrast. FINDINGS: SPINAL CORD: Normal. The cord ends at the level of L1-2. VERTEBRAL BODIES: Normal height and alignment. No compression fracture. Normal marrow signal. DISK SPACES: Loss of signal of L4 and L5 suggestive of disc desiccation. L1-L2: No stenosis. Thickening of the ligamenta flava. L2-L3: No stenosis. Thickening of the ligamenta flava. Bilateral facet joint disease. L3-L4: Mild diffuse disc bulge. Thickening of the ligamenta flava. Bilateral facet joint disease. Sli ght narrowing of the foramina. No definite root compression. L4-L5: Severe spinal canal stenosis. Diffuse disc bulge. Annulus tear. Thickening of the ligamenta fl sj. Bilateral facet joint disease. Bilateral narrowing of the foramina with nerve root compression. L5-S1: Bilateral facet joint disease. PARASPINOUS SOFT TISSUES: Normal. IMPRESSION: No compression fracture. Moderate spinal canal stenosis at the level of L4-L5. Nerve root compression on both sides. Reviewed, dictated and finalized at location A.
--- OUTSIDE RECORDS SUMMARY | 2025-01-21 13:39 | XMS_ITS | Clinical Summary ---
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 radical prostatectomy from Last 3 Months Surgical History Surgery Date Site/Laterality Comments AK ARTHROSCOPY KNEE DIAGNOST IC W/WO SYNOVIAL BX SPX Arthroscopy Knee Left - (Added by TW Conv) AK CYSTOURETHROSCOPY Diagnostic Cystoscopy - (Added by TW [...] on file Legal Sex Male 1:23 PM CURING PICKLING PACKER Gender Identity Male 06/13/2021 12:16 PM CDT Sexual Orientation Straight 06/13/2021 12 :16 PM CDT Obstetrics History Last Filed Vital Signs Vital Sign Reading Time Taken Comments Blood Pressure 140/82 08/19/2024 11:06 AM CURING PICKLING PACKER Pulse 64 08/19/2024 11:06 AM CURING PICKLING PACKER Temperature 36.1 C (96.9 F) 05/27/2024 2:37 PM CDT Respiratory Rate 21 05/27/2024 4:50 PM CDT Oxygen Saturation 97% 08/19/2024 11:06 AM CURING PICKLING PACKER Inhaled Oxygen Concentration - - Weight 99.3 kg (219 lb) 08/19/2024 11:06 AM CURING PICKLING PACKER Height 172.7 cm (5' 8 ) 08/19/2024 11:06 AM CURING PICKLING PACKER Body Mass Index 33.3 08/19/2024 11:06 AM CURING PICKLING PACKER Plan of Treatment Health Maintenance Due Date [...] LIPID PANEL Routine 11/03/2013 11: 04 AM CURING PICKLING PACKER SERUM HEPATITIS C AB Routine 10/07/2012 5:10 AM CURING PICKLING PACKER from Last 3 Months or Most Recently [...] NP LAB BLOOD ORDERABLES F inal Result [facility] [address] [address] Department [place] [address] * Colonoscopy (05/27/2024 3:23 PM CDT) Anatomical Region Laterality Modality Other Narrative Procedure Note Alexander Holley MD - 05/27/2024 3:23 PM CDT ENDOSCOPY LAB Patient Name: Campbell Coronado Procedure Date: 05/27/2024 3:23 PM Admit Type: Outpatient Room: [facility] 2 Date of : 1950 Instrument Name: [...] bowel preparation was evaluated using the BBPS ([place] Bowel Preparation Scale) with scores of: Right [...] ORDERABLES Final Resu lt Performing Organization Address [facility] de Phone Number [facility] [address] [facility] [place] [address] * (ABNORMAL) Hemoglobin A1c (05/29/2023 8:38 AM CDT) [facility] Hgb A1C 6.5(H) 4.0 - 5.6 % WARNER VARNER Estimated Average Glucose 140 mg/dL WARNER VARNER Comment: The ADA recommends reporting an estimated Average Glucose (eAG) with all Hemoglobin A1c results using the equation derived from a study of 507 normal and diabetic adults. Minority populations were underrepresented and children were not included. (Diabetes Care 31:2522-4836, 2008). The eAG is not equivalent to a fasting glucose. Blood 05/29/2023 8:38 AM CDT 05/29/2023 8:47 AM CDT us Teena Henao NP LAB BLOOD ORDERABLE S Final Result Performing Organization Address [facility] Co de Phone Number WARN[facility] [address] [facility]. [place] [address] * Serum lipid panel (11/03/2013 11:04 AM CURING PICKLING PACKER) Cholesterol 154 0 - 200 mg/dl HISTORICAL [...] revised 2012. Serum 11/03/2013 11:0 4 AM CURING PICKLING PACKER us Wayne Corona MD LAB BLOOD ORDERABLES Karishma weinberg Result HISTORICAL RESULTS * Serum Hepatitis C ab (10/07/2012 5:10 AM CURING PICKLING PACKER) HCV ab Negative NEG HISTORICAL RESULTS Serum 10/07/2012 5:10 AM CURING PICKLING PACKER Narrative HISTORICAL RESULTS - 10/07/2012 8:26 AM CURING PICKLING PACKER LAB Frequency Standing Order? No Expiration Date: Interpretive Data If confirmation is required, call Laboratory Customer Service to request sample to be sent to [facility] for Hepatitis C Virus (HCV) RNA Detection and Quantitation by Real-Time Reverse Lehr Attendant-PCR (RT-PCR). Current interpretive data was last revised on 2011 us Wayne Corona MD LAB BLOOD ORDERABLES Karishma weinberg Result HISTORICAL RESULTS from Last 3 Months or Most Recently Relevant to Health Maintenance Insurance [facility] MEDICARE ADVANTAGE [facility] MEDICARE ADVANTAGE Advance Directives For more information, please contact: [phone] * Full Code (Latest Code Status on File) Date Activated Date Inactivated Comments 05/27/2024 2:21 PM 05/27/2024 9:17 PM * Full Code Date Activated Date Inactivated Comments 06/11/2023 3:42 PM 06/12/2023 3:24 PM Care Teams Roaster Supervisor Relationship Specialty Start Date End Date Soy Juan DO [address] [address] PCP - General Internal Medicine 05/17/24
--- OUTSIDE RECORDS SUMMARY | 2025-01-21 13:39 | XMS_ITS | Referral Summary ---
Author Organization [facility] Address [address] [place] [id number] Care Team Providers Care Biomass Production Manager Name Role Phone Soy Juan DO Primary Care Provider [phone] Encounters Date Type Department Care Team Description 11/17/2024 1:40 PM DIRECTOR NEWS Telemedicine [facility] Urology [address] [place] [address] Kameron Dos Santos NP Prostate [...] on file Legal Sex Male 1:23 PM DIRECTOR NEWS Gender Identity Male 06/13/2021 12:16 PM CDT Sexual Orientation Straight 06/13/2021 12 :16 PM CDT Last Filed Vital Signs Vital Sign Reading Time Taken Comments Blood Pressure 140/82 08/19/2024 11:06 AM DIRECTOR NEWS Pulse 64 08/19/2024 11:06 AM DIRECTOR NEWS Temperature 36.1 C (96.9 F) 05/27/2024 2:37 PM CDT Respiratory Rate 21 05/27/2024 4:50 PM CDT Oxygen Saturation 97% 08/19/2024 11:06 AM DIRECTOR NEWS Inhaled Oxygen Concentration - - Weight 99.3 kg (219 lb) 08/19/2024 11:06 AM DIRECTOR NEWS Height 172.7 cm (5' 8 ) 08/19/2024 11:06 AM DIRECTOR NEWS Body Mass Index 33.3 08/19/2024 11:06 AM DIRECTOR NEWS Plan of Treatment Not on file Procedures [...] LIPID PANEL Routine 11/03/2013 11: 04 AM DIRECTOR NEWS SERUM HEPATITIS C AB Routine 10/07/2012 5:10 AM DIRECTOR NEWS from Last 3 Months or Most Recently [...] LAB BLOOD ORDERABLES F inal Result [facility] [address] [address] Department [place] [employer] [place] [address] * Colonoscopy (05/27/2024 3:23 PM CDT) Anatomical Region Laterality Modality Other Narrative Procedure Note Alexander Holley MD - 05/27/2024 3:23 PM CDT ENDOSCOPY LAB Patient Name: Campbell Coronado Procedure Date: 05/27/2024 3:23 PM Admit Type: Outpatient Room: [facility] Date of : 1950 Instrument [...] bowel preparation was evaluated using the BBPS (Cutler Bowel Preparation Scale) with scores of: Right [...] BLOOD ORDERABLES Final Resu lt [facility] [address] [facility]. Department [place] [employer] [place] [address] * (ABNORMAL) Hemoglobin A1c (05/29/2023 [...] and children were not included. (Diabetes Care 31:6415-6381, 2008). The eAG is not equivalent to a fasting glucose. Blood 05/29/2023 8:38 AM CDT 05/29/2023 8:47 AM CDT us Teena Henao NP LAB BLOOD ORDERABLE S Final Result [facility] [address] [facility]. Department [place] [address] * Serum lipid panel (11/03/2013 11:04 AM DIRECTOR NEWS) Cholesterol 154 0 - 200 mg/dl HISTORICAL [...] revised 2012. Serum 11/03/2013 11:0 4 AM DIRECTOR NEWS Wayne Corona MD LAB BLOOD ORDERABLES Karishma l Result HISTORICAL RESULTS * Serum Hepatitis C ab (10/07/2012 5:10 AM DIRECTOR NEWS) HCV ab Negative NEG HISTORICAL RESULTS Serum 10/07/2012 5:10 AM DIRECTOR NEWS Narrative HISTORICAL RESULTS - 10/07/2012 8:26 AM DIRECTOR NEWS LAB Frequency Standing Order? No Expiration Date: Interpretive Data If confirmation is required, call Laboratory Customer Service to request sample to be sent to [facility] for Hepatitis C Virus (HCV) RNA Detection and Quantitation by Real-Time Reverse Sales Trainer-PCR (RT-PCR). Current interpretive data was last revised on 2011 Wayne Corona MD LAB BLOOD ORDERABLES Karishma l Result Performing Organization Address [facility] Co de Phone Number HISTORICAL RESULTS from Last 3 Months or Most Recently Relevant to Health Maintenance Insurance [facility] MEDICARE ADVANTAGE [facility] MEDICARE Address: [facility] [address] [place] [address] [facility] MEDICARE Address: [address] [address] [place] [id number] UHC MEDICARE ADVANTAGE [facility] MEDICARE Address: [address] [place] [id number] Advance Directives For more information, please contact: [phone] * Full Code (Latest Code Status on File) Date Activated Date Inactivated Comments 05/27/2024 2:21 PM 05/27/2024 9:17 PM * Full Code Date Activated Date Inactivated Comments 06/11/2023 3:42 PM 06/12/2023 3:24 PM Care Teams Biomass Production Manager Relationship Specialty Start Date End Date Soy Juan DO [address] [place] [id number] PCP - General Internal Medicine 05/17/24
--- OUTSIDE RECORDS SUMMARY | 2025-01-21 13:39 | XMS_ITS | Clinical Summary ---
Author Organization [facility] Address [address] [place] [address] Care Team Providers Care Cementer Machine Name Role Phone Gavino Gibbs MD Primary Care Provider [phone] Allergies Active Allergy Reactions Criticality Noted Date [...] Comments Blood Pressure 131/85 12/04/2023 8:39 PM SKIVER MACHINE Pulse 84 12/04/2023 8:39 PM SKIVER MACHINE Temperature 36.3 C (97.3 F) 12/04/2023 4:40 PM SKIVER MACHINE Respiratory Rate 13 12/04/2023 5:00 PM SKIVER MACHINE Oxygen Saturation 99% 12/04/2023 8:39 PM SKIVER MACHINE Inhaled Oxygen Concentration - - Weight 95.4 kg (210 lb 6.4 oz) 12/04/2023 4:40 PM SKIVER MACHINE Height 172.7 cm (5' 8 ) 12/04/2023 4:40 PM SKIVER MACHINE Body Mass Index 31.99 12/04/2023 4:40 PM SKIVER MACHINE Plan of Treatment Health Maintenance Due Date Last Done Comments Hepatitis C 1966 DTaP, Tdap and Td Vaccines ( 1 - Tdap) 1967 Pneumococcal Vaccine: 50+ Ye ars (1 of 1 - PCV) 1998 Zoster Vaccines (1 of 2) 1998 Annual Medicare Wellness Visit 2013 RSV Immunization or 60+ Years (1 [...] patient's age to complete this topic Insurance [facility] Care Teams Cementer Machine Relationship Specialty Start Date End Date Gavino Gibbs MD [address] [place] [address] PCP - General INTERNAL MEDICINE 03/07/23
--- OUTSIDE RECORDS SUMMARY | 2025-01-21 13:39 | XMS_ITS | Clinical Summary ---
Author Organization [facility] Care Team Providers Care Motion Picture Set Grip Name Role Phone Unavailable Primary Care Provider [...]
--- OUTSIDE RECORDS SUMMARY | 2025-01-21 13:39 | XMS_ITS | Data Portability ---
Author Organization JOSLYN - [facility], PJackieCJackie, [facility] Address [address] [place] [address] Assessment No assessment recorded. Plan of Treatment [...] recorded. Medication Orders Natrum Muriaticum 2014 015 [email or web address] Not available 5 10:47:30 Natrum Muriaticum 2014 015 [email or web address] Not available 5 12:22:42 Patient TargetsNo targets recorded. Patient Instructions Encounter Date Encounter Id Patient Instructions Last Modified By Organization Details Last Modified Time 03/23/2015 [id number] gout: care instructions [email or web address] Not available 03/23/2015 14:35:59 constipation: ca re instructions [email or web address] Not available 03/23/2015 14:35:59 Diet: read book The Hormone Reset Diet by Dr. Yvonne Alexandra Diet: vegetable heavy Paleo 100 oz water daily For gut health: Daily probiotic Prescript Assist 1 tab daily To support blood pressure: Pressur-Lo by FutureBiotics 3 tabs twice daily [place] ho 400 mg twice daily Magnesium citrate 400 mg twice daily Berberine 500 mg twice daily Coenzyme Q10 300 mg daily Liver Cleanse 2 tabs daily x 2 months Juice Plus 3-blend capsules daily. Do not do their shakes or bars. www.inFreeDAp Algenetix, may also try just [place] blend daily first SunWarrior Organic Vegan Protein chocolate or vanilla plant protein shake mix 1 scoop as needed in almond or coconut milk for breakfast SunFoods powdered greens 1 tblsp daily www.Zadego Medications reviewed, side effects discussed. Call or return to clinic if questions or concerns. Return to clinic if symptoms worsen or persist. [email or web address] Not available 03/23/2015 12:22:03 05/12/2015 [id number] To support blood pressure and blood sugar: Pressur-Lo by Dimension TherapeuticsBiotics 3 tabs twice daily [place] ho 400 mg twice daily Magnesium citrate 400 mg twice daily Berberine 500 mg twice daily Coenzyme Q10 300 mg daily Juice Plus 3-blend capsules daily. Do not do their shakes or bars. Consider Organifi green juice powder daily as label directs www.[employer].Eneedo Glycemovite by [place] [employer] as label directs https://www.Drill Map/glycemo dqgt-yt-czbk-energ etics.html B12 active 1000 mcg daily as directed Medications reviewed, side effects discussed. Call or return to clinic if questions or concerns. Return to clinic if symptoms worsen or persist. [email or web address] Not available 05/12/2015 10:47:30 Discussed risks of elevated BP and signs/sx of stroke; go to ER if any CP, SOB, severe MELGAR, diaphoresis, and other symptoms discussed. Pt refuses any Rxs and wants to only take supplements/otc. [email or web address] Not available 05/12/2015 10:47:30 Reason for Referral None Reported. Results Created Date Observation Date Name Description Value Unit Range Abnormal Flag Note LastModifiedBy Organization Detail LastModifiedTime 03/23/20 15 03/24/2015 uric acid, serum or plasm a uric acid 8.1 mg/dL 4.0-8. 0 high Thera peuti c targe t for gout patie nts: <6.0 mg/dL Not Available [facility] [address], [address], 03/24/2015 15:46:57 03/23/20 15 03/24/2015 CMP, serum or plasm a glucose 102 mg/dL 65-99 high Fasti ng refer ence inter nitesh Not Available [facility] [address] [place], [address], 03/24/2015 15:46:58 03/23/20 15 03/24/2015 CMP, serum or plasm a urea nitrogen (BUN) 13 mg/dL 7-25 normal Not Available [facility] [address], [address], 03/24/2015 15:46:58 03/23/20 15 03/24/2015 CMP, serum or plasm a creatinine 0.99 mg/dL 0.70-1 .25 normal For patie nts >49 years of age, the refer ence limit for Creat inine is appro ximat tony 13% highe r for peopl e ident ified as Afric an-Am venice n. Not Available [facility] [address], [address], 03/24/2015 15:46:58 03/23/20 15 03/24/2015 CMP, serum or plasm a eGFR non-afr. brazilian 79 mL/mi n/1.7 3m2 > or = 60 normal Not Available [facility] [address], [address], 03/24/2015 15:46:58 03/23/20 15 03/24/2015 CMP, serum or plasm a eGFR 92 mL/mi n/1.7 3m2 > or = 60 normal Not Available [address], [address], 03/24/2015 15:46:58 03/23/20 15 03/24/2015 CMP, serum or plasm a BUN/creatini ne ratio NOT APPLIC ABLE (calc ) 6-22 Not Available [address], [address], 03/24/2015 15:46:58 03/23/20 15 03/24/2015 CMP, serum or plasm a sodium 137 mmol/ L 135-14 6 normal Not Available [address], [address], 03/24/2015 15:46:58 03/23/20 15 03/24/2015 CMP, serum or plasm a potassium 4.3 mmol/ L 3.5-5. 3 normal Not Available [address], [address], 03/24/2015 15:46:58 03/23/20 15 03/24/2015 CMP, serum or plasm a chloride 100 mmol/ L 98-110 normal Not Available [address], [address], 03/24/2015 15:46:58 03/23/20 15 03/24/2015 CMP, serum or plasm a carbon dioxide 28 mmol/ L 19-30 normal Not Available [address], [address], 03/24/2015 15:46:58 03/23/20 15 03/24/2015 CMP, serum or plasm a calcium 9.5 mg/dL 8.6-10 .3 normal Not Available [address], [address], 03/24/2015 15:46:58 03/23/20 15 03/24/2015 CMP, serum or plasm a protein, total 7.6 g/dL 6.1-8. 1 normal Not Available [address], [address], 03/24/2015 15:46:58 03/23/20 15 03/24/2015 CMP, serum or plasm a albumin 4.5 g/dL 3.6-5. 1 normal Not Available [address], [address], 03/24/2015 15:46:58 03/23/20 15 03/24/2015 CMP, serum or plasm a globulin 3.1 g/dL_ (calc ) 1.9-3. 7 normal Not Available [address], [address], 03/24/2015 15:46:58 03/23/20 15 03/24/2015 CMP, serum or plasm a albumin/glob ulin ratio 1.5 (calc ) 1.0-2. 5 normal Not Available [address], [address], 03/24/2015 15:46:58 03/23/20 15 03/24/2015 CMP, serum or plasm a bilirubin, total 1.1 mg/dL 0.2-1. 2 normal Not Available [address], [address], 03/24/2015 15:46:58 03/23/20 15 03/24/2015 CMP, serum or plasm a alkaline phosphatase 65 U/L 40-115 normal Not Available [facility] [employer] [address], [address], 03/24/2015 15:46:58 03/23/20 15 03/24/2015 CMP, serum or plasm a AST 22 U/L 10-35 normal Not Available [address], [address], 03/24/2015 15:46:58 03/23/20 15 03/24/2015 CMP, serum or plasm a ALT 20 U/L 9-46 normal Not Available [address], [address], 03/24/2015 15:46:58 03/23/20 15 03/24/2015 CBC w/ auto diff white blood cell count 6.7 thous and/u L 3.8-10 .8 normal Not Available [address], [address], 03/24/2015 15:46:58 03/23/20 15 03/24/2015 CBC w/ auto diff red blood cell count 5.72 anita on/uL 4.20-5 .80 normal Not Available [address], [address], 03/24/2015 15:46:58 03/23/20 15 03/24/2015 CBC w/ auto diff hemoglobin 15.5 g/dL 13.2-1 7.1 normal Not Available [address], [address], 03/24/2015 15:46:58 03/23/20 15 03/24/2015 CBC w/ auto diff hematocrit 48.3 % 38.5-5 0.0 normal Not Available [address], [address], 03/24/2015 15:46:58 03/23/20 15 03/24/2015 CBC w/ auto diff MCV 84.3 fL 80.0-1 00.0 normal Not Available [address], [address], 03/24/2015 15:46:58 03/23/20 15 03/24/2015 CBC w/ auto diff MCH 27.1 pg 27.0-3 3.0 normal Not Available [address], [address], 03/24/2015 15:46:58 03/23/20 15 03/24/2015 CBC w/ auto diff MCHC 32.2 g/dL 32.0-3 6.0 normal Not Available [address], [address], 03/24/2015 15:46:58 03/23/20 15 03/24/2015 CBC w/ auto diff RDW 18.4 % 11.0-1 5.0 high Not Available [address], [address], 03/24/2015 15:46:58 03/23/20 15 03/24/2015 CBC w/ auto diff platelet count 265 thous and/u L 140-40 0 normal Not Available [address], [address], 03/24/2015 15:46:58 03/23/20 15 03/24/2015 CBC w/ auto diff MPV 7.0 fL 7.5-11 .5 low Not Available [address], [address], 03/24/2015 15:46:58 03/23/20 15 03/24/2015 CBC w/ auto diff absolute neutrophils 4616 cells /uL 1500-7 800 normal Not Available [address], [address], 03/24/2015 15:46:58 03/23/20 15 03/24/2015 CBC w/ auto diff absolute lymphocytes 1280 cells /uL 850-39 00 normal Not Available [address], [address], 03/24/2015 15:46:58 03/23/20 15 03/24/2015 CBC w/ auto diff absolute monocytes 576 cells /uL 200-95 0 normal Not Available [address] [place], [address], 03/24/2015 15:46:58 03/23/20 15 03/24/2015 CBC w/ auto diff absolute eosinophils 214 cells /uL 15-500 normal Not Available [address], [address], 03/24/2015 15:46:58 03/23/20 15 03/24/2015 CBC w/ auto diff absolute basophils 13 cells /uL 0-200 normal Not Available [address] [place], [address], 03/24/2015 15:46:58 03/23/20 15 03/24/2015 CBC w/ auto diff neutrophils 68.9 % normal Not Available [address], [address], 03/24/2015 15:46:58 03/23/20 15 03/24/2015 CBC w/ auto diff lymphocytes 19.1 % normal Not Available [address], [address], 03/24/2015 15:46:58 03/23/20 15 03/24/2015 CBC w/ auto diff monocytes 8.6 % normal Not Available [address], [address], 03/24/2015 15:46:58 03/23/20 15 03/24/2015 CBC w/ auto diff eosinophils 3.2 % normal Not Available [address] [place], [address], 03/24/2015 15:46:58 03/23/20 15 03/24/2015 CBC w/ auto diff basophils 0.2 % normal Not Available [address] [place], [address], 03/24/2015 15:46:58 03/23/20 15 03/24/2015 C-moe ctive prote in, quant itati ve, serum or plasm a C-reactive protein 0.28 mg/dL <0.80 normal Pleas e be advis ed that patie nts mickey Schreibero xypen icill ins may exhib it false ly decre ased C-Taos ctive Prote in level s due to an cisco tical inter feren ce in this assay . Not Available [facility] [place] [address] [place], [address], 03/24/2015 15:46:59 03/23/20 15 03/24/2015 bhavana tin, serum or plasm a ferritin 28 NG/mL 20-380 normal Not Available [facility] [address] [place], [address], 03/24/2015 15:46:59 03/23/20 15 03/24/2015 carci noemb [...] not be inter prete d as absol pitka's point evide nce of the prese nce or absen ce of disea se. Not Available [facility] [address] [place], [address], 03/24/2015 15:46:59 03/23/20 15 03/24/2015 vitam in B12 + folat e, serum or blood vitamin B12 567 pg/mL 200-11 00 normal Not Available [facility] [address] [address] [address] [place], [address], 03/24/2015 15:46:59 03/23/20 15 03/24/2015 vitam in B12 + folat e, serum or blood folate, serum >24.0 NG/mL normal Refer ence Range Low: <3.4 Borde rline : 3.4-5 .4 Shaylee l: >5.[address] [facility] [address] [place], [address], 03/24/2015 15:46:59 03/23/20 15 03/24/2015 vitam in [...] /MS is recom asia d: order code 69164 (lavell ents >2yrs ). For more infor danyelle canchola on this test, go to: http: //elizabeth canchola.odette byrdia gnost ics.c om/fa q/FAQ [address] [facility] [facility] [address] [place], [address], 03/24/2015 15:47:00 Result Notes None recorded. Problems Name Problem SNOMED Code Status Onset Date Resolution Date Notes Provider Name and Address Organization Details Recorded Time Fatigue 03791136 Active JOSLYN French [facility] 5 12:22:42 Hypertensive disorder 38189376 Mukesh pham [place] Kyung Messer [facility] 5 10:47:30 Constipation 69369263 JOSLYN Kunz [facility] 5 12:22:42 Gout 05009967 Mukesh pham [place] Kyung Messer [facility] 5 10:39:59 Problem Notes None recorded. Procedures Surgical History Date Name Laterality Status Provider Name and Address Organization Details Recorded Time 09/29/18 98 Repair testis injury completed Michaela Sveta [facility] 03/23/2015 17:58:50 Arthroscopic Surgery completed Jv Buckley [facility] 03/23/2015 11:26:45 Imaging Results None recorded. Procedure Notes None recorded. Medical Equipment None Reported. Allergies Allergen ID Allergen Name Allergen Category Reaction Reaction Severity Criticality Documentation Date Start Date Code Code System Note Provider Name and Address Organization Details Recorded Time 22143 Levaquin medicatio n Not available Not available Not available 03/23/2015 56386 2 RxNorm Reva Malseth pham [facility] 5 12:58:53 77851 Product containin g penicilli n (product) medicatio n Not available Not available Not available 03/23/2015 25750 8001 SNOMED Reva Randal pham [facility] 5 12:58:53 10506 mold extract environme nt respirato ry distress moderate Not available 03/23/2015 48678 8 RxNorm Reva Malic veor [facility] 5 12:58:53 Medications Name Sig Start [...] Address Organization Details Last Updated DateTime 5 17239.4 74 g 55 /min 30.4 kg/m2 172.72 cm 182 mm[Hg] 99 mm[Hg] Jv JORGENSEN [facility] 5 11:26:45 Date Recorded Body weight Heart rate Body mass index (BMI) Body height Systolic blood pressure Diastolic blood pressure Provider Name and Address Organization Details Last Updated DateTime 5 48953.1 08506 g 62 /min 31.4 kg/m2 172.72 cm 187 mm[Hg] 99 mm[Hg] Jv JORGENSEN [facility] 5 09:53:33 Date Recorded Systolic blood pressure Diastolic blood pressure Provider Name and Address Organization Details Last Updated DateTime 05/12/2015 172 mm[Hg] 98 mm[Hg] Minnie Messer [facility] 05/12/2015 10:39:46 Social History Question Answer Notes LastModified by Organizat ion Details LastModified Time Tobacco Smoking Status Never Smoker JOSLYN French [facility] 03/23/2015 12:02:46 Do You Have [...] Information not available 03/23/2015 What Type Of Soot Blower Do You Use? None Information not available [...] SNOMED-CT Code Diagnosis ICD10 Code Diagnosis Note [id number] Minnie Randall [facility] Main Office [address] [place] [address] 03/23/2015 11:17:44 03/23/2015 12:26:40 Fatigue 12233739 Hypertensive disorder 70401748 Constipation 98767631 Gout [id number] 95939 Minnie Randall [facility] Main Office [address] [place] [address] 05/12/2015 09:42:44 05/12/2015 10:47:51 Hypertensive disorder 59438569 Dietary ma nagement surveillance 722145292 Health Concerns Section Related Observation LastModified by Organization Detai ls LastModified Time None Recorded Concern Status LastModified by Organization Details LastModified Time None Recorded Advance Directives Directive Y: Payers Encounter Date Sequence Insurance Name Policy Number Policy Roberson Covered Member ID Roberson Member ID Guarantor Name 03/23/2015 1 [place]: [place] Campbell Coronado [id number] Campbell Coronado 03/23/2015 2 *SELF PAY* Vinnie Reece 05/12/2015 1 [place] Campbell Coronado [id number] Campbell Coronado 05/12/2015 2 [employer] (MEDICARE SUPPLEMENT) Campbell Coronado [id number] Campbell Coronado
--- OUTSIDE RECORDS SUMMARY | 2025-01-21 13:39 | XMS_ITS | Data Portability ---
Author Organization [place] - [facility] Main [facility]- [place] Address [address] [place] [address] Assessment No assessment recorded. Plan of Treatment [...] By Organization Details Last Modified Time 03/07/2023 2419 I discussed with Demetrio that based on [...] Metzger. [email or web address] Not available 03/10/2023 16:55:53 06/20/2023 8570 I discussed with Demetrio that his MRI [...] and approved by me, Dr. Rosendo Metzger. [email or web address] Not available 06/20/2023 15:23:52 Reason for Referral None Reported. Results Created Date Observation Date Name Description Value Unit Range Abnormal Flag Note LastModifiedBy Organization Detail LastModifiedTime 03/07/2003/07/2023 XR, knee No observ ation record ed. [address] [address] [place], [address], 03/07/2023 11:31:53 04/21/20 23 04/21/2023 MRI, lower extre mity joint (s), w/o contr ast No observ ation record ed. [address] [address] [place], [address], 04/21/2023 16:22:51 Result Notes None recorded. Problems Name Problem SNOMED Code Status Onset Date Resolution Date Notes Provider Name and Address Organization Details Recorded Time Hypertensiv e disorder 78708499 Active 2022 efrem pham, [place] [facility] 3 10:23:23 Diabetes mellitus 06355202 Active 2022 efrem pham, [place] [facility] 3 10:23:27 Pain of right knee joint 0718932405706 00 Active 2022 DANIELLE ALMANZAR, DAV[place] [address] [place], [address], [place] [facility] 3 16:54:19 Tear of medial meniscus of knee 419152092 Active 2022 DANIELLE ALMANZAR, [employer] [address] [place], [address], [place] [facility] 3 15:25:14 Problem Notes None recorded. Procedures Surgical History Date Name Laterality Status Provider Name and Address Organization Details Recorded Time arthroscopy completed [facility] [place] [facility] 02/14/2023 10:25:42 extraction of cataract completed [facility] - [facility] 02/14/2023 10:25:56 Imaging Results Imaging Date Name Status LastModified by Zoltan gomez Details LastModified Time 03/07/2023 XR, knee completed [address] [address] [place], [address], 03/07/2023 11:31:53 04/21/2023 MRI, lower extremity joint(s), w/o contrast completed [address] [place] [address], [address], 04/21/2023 16:22:51 Procedure Notes None recorded. Medical Equipment None Reported. Allergies Allergen ID Allergen Name Allergen Category Reaction Reaction Severity Criticality Documentation Date Start Date Code Code System Note Provider Name and Address Organization Details Recorded Time 1728 Substance with sulfonami de structure and antibacte rial mechanism of action (substanc e) medicatio n Not available Not available Not available 02/14/2023 82738 8003 SNOMED [facility] [place] - [facility] 3 10:22:52 1729 Product containin g penicilli n (product) medicatio n Not available Not available Not available 02/14/2023 75746 8001 SNOMED [facility], [place] [facility] 3 10:23:02 1730 Levaquin medicatio n Not available Not available Not available 02/14/2023 94099 2 RxNorm efrem [facility], [place] [facility] [...] Updated DateTime 3 172.72 cm 34.2 kg/m2 070549. 56 g 98.4 [degF] 55 /min 148 mm[Hg] 89 mm[Hg] Aiyana Holman [place] - [facility] 3 10:22:39 Date Recorded Body height Body mass index (BMI) Body weight Body temperature Heart rate Systolic blood pressure Diastolic blood pressure Provider Name and Address Organization Details Last Updated DateTime 3 172.72 cm 42.3 kg/m2 708525. 68 g 97.1 [degF] 68 /min 124 mm[Hg] 73 mm[Hg] Mavis Pallavi [place] [facility] 3 11:17:29 Social History Question Answer Notes LastModified by Organizat ion Details LastModified Time Tobacco Smoking Status Never Smoker efrem pham [place] [facility] 02/14/2023 10:24:01 Do You Have An Advance Directive? Yes [email or web address] Information n ot available 02/14/2023 What Is Your Level Of Alcohol Consumption? Moderate [email or web address] Information not available 02/14/2023 Are You Blind Or Do You Have Difficulty Seeing? No [email or web address] Information n ot available 02/14/2023 Is Blood Transfusion Acceptable In An Emergency? Yes [email or web address] Information not available 02/14/2023 What Is Your Level Of Caffeine Consumption? None [email or web address] Information not available 02/14/2023 In The 14 Days Before Symptom Onset, Have You Had Close Contact With A Laboratory-confirm ed COVID-19 While That Case Was Ill? No Information n ot available 02/14/2023 In The 14 Days Before Symptom Onset, Have You Had Close Contact With A Person Who Is Under Investigation For COVID-19 While That Person Was Ill? No [email or web address] Information not available 02/14/2023 Have You Been To An Area Known To Be High Risk For COVID-19? No [email or web address] Information not available 02/14/2023 Are You Currently Employed? No [email or web address] Information not available 02/14/2023 Are You Deaf Or Do You Have Serious Difficulty Hearing? No [email or web address] Information not available 02/14/2023 What Type Of Diet Are You Following? REGULAR [email or web address] Information n ot available 02/14/2023 Have You Processed Blood Or Body Fluids From An Ebola Virus Disease Patient Without Appropriate PPE? No [email or web address] Information not available 02/14/2023 Do You Reside In Or Have You Traveled To An Area Where Ebola Virus Transmission Is Active? No [email or web address] Information not available 02/14/2023 What Is The Highest Grade Or Level Of School You Have Completed Or The Highest Degree You Have Received? [id number] [email or web address] Information not available 02/14/2023 Are There Any Guns Present In Your Home? No [email or web address] Information not available 02/14/2023 Which Of Your Hands Is Dominant? Right [email or web address] Information n ot available 02/14/2023 What Is Your Relationship Status? Information not available 02/14/2023 Do You Use Your Seat Belt Or Car Seat Routinely? Yes [email or web address] Information not available 02/14/2023 Are You Sexually Active? No [email or web address] Information not available 02/14/2023 Do You Have Smoke And Carbon Monoxide Detectors In Your Home? Yes [email or web address] Information not available 02/14/2023 Do You Feel Stressed (tense, Restless, Nervous, Or Anxious, Or Unable To Sleep At Night)? DF8598-1 [email or web address] Information not available 02/14/2023 Do You Use Any Illicit Or Recreational Drugs? No [email or web address] Information not available 02/14/2023 Do You Use Sunscreen Routinely? Yes Information not available 02/14/2023 Do You Or Have You Ever Used Any Other Forms Of Tobacco Or Nicotine? No [email or web address] Information not available 02/14/2023 Sex: Male Functional Status Question Answer Note LastModified by Organizat ion Details LastModified Time Do you have difficulty walking or climbing stairs? No [email or web address] Information not available 02/14/2023 Are you able to walk? [email or web address] Information not available 02/14/2023 Do you have difficulty doing errands alone? No [email or web address] Information not available 02/14/2023 Are you able to care for yourself? Yes [email or web address] Information not available 02/14/2023 Do you have difficulty dressing or bathing? No Information not available 02/14/2023 What is your exercise level? Occasional [email or web address] Information not available 02/14/2023 Mental Status Question Answer Note LastModified by Organization D etails LastModified Time Do you have difficulty concentrating, remembering or making decisions? No Information no t available 02/14/2023 Family History Relationship Description Onset Age of this Age Resolved Age Notes LastModified by Organization Details LastModified Time Father No current problems or disability Not available 02/14 10:23:32 Mother No current problems or disability [email or web address] Not available 02/14 10:23:32 Medical History Condition Response Heart Problems N Coronary Artery Disease N Gout N Anxiety/Depression N Blood Transfusion N Hernia N Migraines N Thyroid Problems N COPD N Pacemaker N Anemia N Heart Attack ([place]) N Ulcers N Diabetes Y Bleeding Disorder [...] Code Diagnosis ICD10 Code Diagnosis Note 3604 Rosendo Metzger [address] [address] 03/07/2023 10:07:14 03/07/2023 11:03:18 Pain of right knee joint 2392650915 30375 M25.561 4330 Rosendo Metzger [address] [address] 06/20/2023 10:47:51 06/20/2023 12:30:35 Pain of right knee joint 2232725489 46324 M25.561 Tear of me dial meniscus of knee 243352808 S83.241A Health Concerns Section Related Observation LastModified by Organization Detai ls LastModified Time None Recorded Concern Status LastModified by Organization Details LastModified Time None Recorded Advance Directives Directive Y: Payers Encounter Date Sequence Insurance Name Policy Number Policy Roberson Covered Member ID Roberson Member ID Guarantor Name 03/07/2023 1 [facility] (MEDICARE REPLACEMENT/A DVANTAGE - HMO) [id number] Campbell Coronado [id number] Campbell Coronado 06/20/2023 1 [facility] (MEDICARE REPLACEMENT/A DVANTAGE - HMO) [id number] Campbell Coronado [id number] Campbell Coronado Notes Date Note Type Note [...] is located in the chart. DANIELLE ALMANZAR, [employer] [address] [place], [address], [place] [facility] 03/10/2023 [...] was some kind of injury. DANIELLE ALMANZAR, [employer]ER [address], [place], [address], [place] [facility] 06/20/2023 15:25:43
--- OUTSIDE RECORDS SUMMARY | 2025-01-21 13:40 | XMS_ITS | Clinical Summary ---
Author Organization [facility] Address [address] [address] Care Team Providers Care Boiler Assistant Operator Name Role Phone Laura Yates MD Unavailable [phone] Source Comments [facility], formerly [facility],non-owned Affiliates and Associated Physician Practices is amultiple site organization consisting of ambulatory clinics and hospital sitesin [place], [place], [place] and [place]. This disclosure is being madepursuant to the Care Everywhere program and may not contain all information available regarding this patient. Last updated 18.[facility] Allergies Active Allergy Reactions Criticality Noted Date Comments Levofloxacin Swelling 05/18/2014 Penicillins 05/18/2014 Sulfa Drugs Rash Low 05/18/2014 Medications * Be aware that medications may not be up to date on this document. Alwaysverify current medications with the patient. traMADol (ULTRAM) 50 MG tablet Take 1 Tab by mouth every 6 hours as needed for Pain. 40 Tab 0 05/19/2014 Active cephALEXin (KEFLEX) 500 MG capsule Take 1 Cap by mouth 4 times daily. 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 Gender Identity Not on file Sexual Orientation [...] Health Maintenance Due Date Last Done Comments HEPATITIS C SCREENING 09/26/1966 DTAP/TDAP/TD VACCINES (1 - Tdap) 1967 PNEUMOCOCCAL VACCINE 50+ (1 of 1 - PCV) 1998 ZOSTER VACCINE (1 of 2) 1998 Respiratory Syncytial Virus (RSV) Vaccine Pt: or over 60 yrs (1 - 1-dose 75+ series) 2023 COVID-19 VACCINE ( - 2023-2 5 season) 2024 DEPRESSION SCREENING 09/29/2024 MEDICARE AWV CALENDAR YEAR 2024 INFLUENZA VACCINE (Season Ended) 2025 HEPATITIS B VACCINE Aged Out No longe [...] patient's age to complete this topic Insurance [facility] MANAGED MEDICARE ADV [facility] MEDICARE ADV Care Teams Boiler Assistant Operator Relationship Specialty Start Date End Date Laura Yates MD Orthopedic Surgery 05/18/14
--- OUTSIDE RECORDS SUMMARY | 2025-01-21 13:40 | XMS_ITS | Encounter Summary ---
Author Organization [facility] Address [address] [place] [address] Care Team Providers Care Accounting Analyst Name Role Phone Laura Yates MD Unavailable [phone] Encounter Details Date Type Department Care Team (Late st Contact Info) Description 09/02/2024 Lab Requisition [facility] - DermPath Lab [address], [place] [id number] Jv Asencio MD 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 Gender Identity Not on file Sexual Orientation Not on file documented as of this encounter Plan of Treatment Not on file documented as of this encounter Procedures Procedure Name Priority Date/Time Associated Diagnosis Comments DERMATOPATHOLOGY Routine 09/02/2024 12:0 0 AM INDEPENDENT CROP CONSULTANT Neoplasm of uncertain behavior of skin documented in this encounter Results * DERMATOPATHOLOGY (09/02/2024 12:00 AM INDEPENDENT CROP CONSULTANT) Case Report Dermatopathology Report Case: [id number] Authorizing Provider: Jv Asencio MD Collected: 09/02/2024 12:00 AM Ordering Location: [facility] - Received: 09/06/2024 01:59 PM DermPath Lab Pathologist: Halle Chapman MD Specimens: A) - Skin, right zygoma B) - Skin, right outer canthus C) - Skin, left lower cheek D) - Skin, left [place] of antihelix 2:23 PM [facility] DERMATOPATHOLOGY [facility]ORATORY Final Diagnosis Specimen A. [...] (see microscopic description and comment) 2:23 PM [facility] DERMATOPATHOLOGY [facility]ORATORY Clinical History BCC vs SCC 2:23 PM [facility] DERMATOPATHOLOGY LABORATORY Gross Description Specimen A: [...] measuring 4x3x1 mm. Jar 0. 2:23 PM [facility] DERMATOPATHOLOGY LABORATORY Microscopic Description Specimen A. [...] cannot be ruled out. 4 2:23 PM INDEPENDENT CROP CONSULTANT DERMATOPATHOLOGY LABORATORY Disclaimer An external and internal positive and negative controls are appropriate for the histochemical, immunohistochemical and immunofluorescence stain(s) in this case (if any), except where stated explicitly. The performance characteristics of the stain(s) cited in this report were developed and its performance characteristic determined by the Dermatopathology Laboratory at [facility], directed by Dr. Sierra Martinez. These tests need not be, and therefore are not, approved by the [place] Food and Drug Administration. The tests are used for clinical purposes. Billing Codes Specimen Charges Stain Charges 57576 61468 [id number] 40989 1 1 1 1 4 2:23 PM INDEPENDENT CROP CONSULTANT DERMATOPATHOLOGY LABORATORY Embedded Images 4 2:23 PM INDEPENDENT CROP CONSULTANT DERMATOPATHOLOGY LABORATORY Pathology/Cytology TISSUE SPECIMEN FROM SKIN / Unknown 09/02/2024 09/06/2024 1:59 PM INDEPENDENT CROP CONSULTANT Miscellaneous samples (specimen) TISSUE SPECIMEN FROM SKIN / Unknown 09/02/2024 09/06/2024 1:59 PM INDEPENDENT CROP CONSULTANT Miscellaneous samples (specimen) TISSUE SPECIMEN FROM SKIN / Unknown 09/02/2024 09/06/2024 1:59 PM INDEPENDENT CROP CONSULTANT Miscellaneous samples (specimen) TISSUE SPECIMEN FROM SKIN / Unknown 09/02/2024 09/06/2024 1:59 PM INDEPENDENT CROP CONSULTANT Jv Asencio MD LAB - PATHOLOGY/CYTOLOGY [facility] Final Result DERMATOPATHOLOGY LABORATORY [facility] - Department of Dermatology [facility] Medicine [address] [place] [address], [address] [place] [address], [facility] [phone] documented in this encounter Visit Diagnoses Diagnosis Neoplasm of uncertain behavior of skin documented in this encounter Care Teams Accounting Analyst Relationship Specialty Start Date End Date Laura Yates MD Orthopedic Surgery 05/18/14 documented as of this encounter
--- OUTSIDE RECORDS SUMMARY | 2025-01-21 13:40 | XMS_ITS ---
Author Organization [facility] Clinical [facility] Address [address] [place] [phone] Care Team Providers Care Shale Processing Technician Name Role Phone Soy Juan Primary Care Provider [phone] Active Problems Problem Noted Date Diagnosed Date [...]
--- OUTSIDE RECORDS SUMMARY | 2025-01-21 13:40 | XMS_ITS | Encounter Summary ---
Author Organization [facility] Address [address] [place] [address] Care Team Providers Care Office Machines Sales Representative Name Role Phone Laura Yates MD Unavailable [phone] Encounter Details Date Type Department Care Team (Late st Contact Info) Description 11/27/2023 Lab Requisition [facility] - DermPath Lab [address] [place] [id number] Jv Asencio MD [facility] DERMATOLOG[facility] [address] [place] [phone] Neoplasm of uncertain behavior of skin Social History Tobacco Use Types Packs/Day Years Used Date Smoking Tobacco: Never Alcohol Use Standard Drinks/Week Comments No 0 (1 standard drink = 0.6 oz pur e alcohol) Sex and Gender Information Value Date Recorded Sex Assigned at Not on file 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 DermPath Lab Received: 11/28/2023 12:42 PM Pathologist: Silvia Madden MD Specimen: Skin, left mid back 3:03 PM [facility] DERMATOPATHOLOGY LABORATORY Final Diagnosis Specimen A. SKIN, left mid back: BENIGN VERRUCOUS KERATOSIS, INFLAMED (L82.1)' 3:03 PM [facility] DERMATOPATHOLOGY LABORATORY Clinical History Squamous Cell Carcinoma vs. Irritated Seborrheic Keratosis 3:03 PM [facility] DERMATOPATHOLOGY LABORATORY Gross Description Specimen A: Received is one formalin filled container labeled with the patient's name and designated left mid back. The specimen consists of a shave biopsy measuring 10x7x3 mm. Jar 0. 3:03 PM [facility] DERMATOPATHOLOGY LABORATORY Microscopic Description Specimen A. SKIN, left mid back: Sections show hyperkeratosis, papillomatosis, hypergranulosis, and acanthosis. Inflammatory cells are present within the dermis. These histological findings can be seen in a verruca vulgaris or a seborrheic keratosis. 3:03 PM [facility] DERMATOPATHOLOGY LABORATORY Disclaimer An external and internal positive and negative controls are appropriate for the histochemical, immunohistochemical and immunofluorescence stain(s) in this case (if any), except where stated explicitly. The performance characteristics of the stain(s) cited in this report were developed and its performance characteristic determined by the Dermatopathology Laboratory at [facility], directed by Dr. Sierra Martinez. These tests need not be, and therefore are not, approved by the [place] Food and Drug Administration. The tests are used for clinical purposes. Billing Codes Specimen Charges Stain Charges 27072 1 3:03 PM [facility] DERMATOPATHOLOGY LABORATORY Embedded Images 3:03 PM [facility] DERMATOPATHOLOGY LABORATORY Pathology/Cytolo gy TISSUE SPECIMEN FROM SKIN / Unknown 11/27/2023 3:33 AM PATTERNMAKER 11/28/2023 12:42 PM PATTERNMAKER us Jv Asencio MD LAB - PATHOLOGY/CYTOLOGY ORDE JAJA Final Result DERMATOPATHOLOGY LABORATORY [facility] - Department of Dermatology [address], [address] [phone] documented in this encounter Visit Diagnoses Diagnosis Neoplasm of uncertain behavior of skin documented in this encounter Care Teams Office Machines Sales Representative Relationship Specialty Start Date End Date Laura Yates MD Orthopedic Surgery 05/18/14 documented as of this encounter
--- OUTSIDE RECORDS SUMMARY | 2025-01-21 13:40 | XMS_ITS | Data Portability ---
Author Organization [facility], Main Office Address [address] [facility] [address] [place] [address] Care Team Providers Care Copy Writer Name Role Phone RAMAN GOLDMAN Primary Care [...] Organization Details Last Modified Time 08/14/2017 1468 Patient counseled to F/U immediately if temp. greater than 100.4, if is unable to urinate, increased rectal pain or any other concerns. Not available 08/14/2017 13:11:01 Follow up in 2 - 3 weeks and I will treat the RA. I discussed with him again he will be a total of 5 - 6 treatments. Not available 08/15/2017 11:11:06 09/04/2017 1664 Patient counseled to F/U immediately if temp. [...] colonoscopy and also has a trip to [place] at the end of November so he [...] Organization Details Recorded Time Pile easily reducible [id number] Active 2016 Tx #1: 7 1.2 x 11 RP 7 - No Tx - discom fort/r elucta nce on my part Tx #2: 1.2 x 10 LL Tx #3: 7 1.1 x 6 RA Tx #4: 8 1.2 x 10 RP Tx #5: 11/06/17 1.2 x 10 LL 8: No Tx - doing great/ no need Jaja Walker MD [address], [place], [address], [facility] 8 22:36:16 External hemorrhoids 75783394 Active 2016 Jaja Walker MD [address], [place], [address] , [facility] 7 19:38:07 Constipation 78309367 Active 2016 Jaja Walker MD [address] [place] [address],[address], [place], [address], [facility] 7 19:38:23 History of transient ischemic attack 535065261 Active 2016 Jaja Walker MD [address] [place] [address],[address], [address], [facility] 7 19:39:14 Screening for malignant neoplasm of colon Active 2017 Jaja Walker MD [address] [place] [address],[address], [place], [address], [facility] 8 13:16:06 Problem Notes None recorded. Procedures Surgical History Date Name Laterality Status Provider Name and Address Organization Details Recorded Time 8 IRC completed Jaja Walker MD [address] [place] [address],[address], [place], [address], [facility] 11/06/2017 13:35:15 8 IRC completed Jaja Walker MD [address] [place] [address],[address], [place], [address], [facility] 10/10/2017 15:51:11 7 IRC completed Jaja Walker MD [address] [place] [address],[address], [place], [address], [facility] 09/06/2017 13:52:00 7 IRC completed Jaja Walker MD [address] [place] [address],[address], [place], [address], [facility] 08/15/2017 11:10:12 7 IRC completed Jaja Walker MD [address] [place] [address],[address], [place], [address], [facility] 07/30/2017 19:37:21 3 Colonoscopy completed Jaja Walker MD [address] [facility],[address], [place], [address], [facility] 07/30/2017 19:35:15 Imaging Results None recorded. Procedure Notes None recorded. Medical Equipment None Reported. Allergies Allergen ID Allergen Name Allergen Category Reaction Reaction Severity Criticality Documentation Date Start Date Code Code System Note Provider Name and Address Organization Details Recorded Time 536 Product containin g penicilli n (product) medicatio n rash Not available Not available 07/30/2017 62113 8001 SNOMED Not Available Not Available Not Available 537 Substance with sulfonami de structure and antibacte rial mechanism of action (substanc e) medicatio n rash Not available Not available 07/30/2017 53805 8003 SNOMED Not Available Not Available Not Available 538 Levaquin medicatio n other Not available Not available 07/30/2017 75096 2 RxNorm Feet swell Not Available Not [...] Updated DateTime 02/05/2018 172.72 cm My Ramirez [facility] 02/05/2018 13:08:25 Date Recorded Body height Provider Name an d Address Organization Details Last Updated DateTime 08/14/2017 172.72 cm Nancy Timmons [facility] 08/14/2017 13:06:26 Date Recorded Body height Provider Name an d Address Organization Details Last Updated DateTime 09/04/2017 172.72 cm My Ramirez [facility] 09/04/2017 14:46:04 Date Recorded Body height Provider Name an d Address Organization Details Last Updated DateTime 10/09/2017 172.72 cm My Ramirez [facility] 10/09/2017 13:50:40 Date Recorded Body height Provider Name an d Address Organization Details Last Updated DateTime 11/06/2017 172.72 cm Nancy Timmons [facility] 11/06/2017 13:12:56 Social History Question Answer Notes LastModified by Organizat ion Details LastModified Time Tobacco Smoking Status Never Smoker Not [facility]/01/2020 03:38:34 Alcohol Use Yes Information n ot available 07/30/2017 Alcohol Amount Heavy Curently Stopped Information not available 07/30/2017 Caffeine Use Yes Information not available 07/30/2017 Caffeine Type Coffee Information not available 07/30/2017 Caffeine Amount 1 Cup Daily Information not available 07/30/2017 Illicit Drug Use No Information not available 07/30/2017 What Was The Date Of Your Most Recent Tobacco Screening? 02/05/2018 [id number] Information not available 08/01/2020 Sex: Unknown Functional [...] N Hyperthyroidism N Hernia N Glaucoma N Depression N COPD N Hypothyroidism N Accidental Bowel Leakage N Headaches/Migraines N Deep Vein Thrombosis N Cardiac Dysrhythmia N Anxiety Disorder N MRSA/VRE Exposure N Diverticulosis N Cancer N Stroke Y Head Trauma N Genital Warts N Crohn's Disease N Liver Disease/Hepatitis N HIV/AIDS N High Cholesterol N Irritable Bowel Syndrome N Kidney Disease N Autoimmune Disease N Anemia N Celiac Disease N [...] Jaja Walker MD Main Office [address] [facility] [place] [address] 07/30/2017 13:18:52 07/30/2017 15:00:34 Pile easily reducible 853630764 K64.1 Stage 2 - 3 internal hemorrhoid s/external hemorrhoid s: I do think he would benefit from infrared coagulatio n. Full informed consent for treatment was given including risks/bene fits and alternativ es. He wanted to proceed with treatment. His first treatment was done today on the right posterior . I advised for now he needs to take his baby aspirin every other day but hopefully we can get his bleeding better and he can go back on it daily. External hemorrhoids 239 [address]38 K64.4 These will improve with IRC. He understand s the only way to directly treat external hemorrhoid s would be with surgery and he does not wish to pursue this and his hemorrhoid s are not bad enough to require surgery. Constipation 32809377 K5 9.00 I advised that she start BOTH Bene Fiber and Miralax at very low dose and slowly increase to try to maintain soft daily BM's. History of transient ischemic attack 038918153 Z86.73 He needs to go down on the baby aspirin for now but hopefully we can get him back on it as soon as possible. 1394 Jaja Walker MD Main Office [address] [facility] [place] [address] 08/07/2017 13:09:11 08/07/2017 13:42:13 Constipation 96815534 K59.00 Is doing well with the Bene Fiber and Miralax. I advised take forever and adjust doses as needed to maintain soft daily BM's. External hemorrhoids 239 98165 K64.4 Pile easily reducible 27 4148160 K64.1 I discussed treatment discomfort with him. [...] next treatment. History of transient ischemic attack 421776804 Z86.73 He will stay with every other day on the baby aspirin for now. 1468 Jaja Walker MD Main Office [address] [address] [place] [address] 08/14/2017 13:04:22 08/14/2017 13:39:37 Pile easily reducible 495400559 K64.1 Stage 2 internal hemorrhoid s/external hemorrhoid s: He is doing well with infrared coagulatio n treatment. His 2nd treatment was done today on the LL. External hemorrhoids 239 20651 K64.4 Improving with IRC History of transient ischemic attack 583404222 Z86.73 He will stay with every other day on the baby aspirin for now. Constipation 06494807 K5 9.00 Is doing well with the Bene Fiber and Miralax. I advised take forever and adjust doses as needed to maintain soft daily BM's. 1664 Jaja Walker MD Main Office [address] [facility] [address] [place] [address] 09/04/2017 14:45:29 09/04/2017 15:26:35 Pile easily reducible 844714160 K64.1 Stage 2 internal hemorrhoid s/external hemorrhoid s: He is doing well with infrared coagulatio n treatment. His 3rd treatment was done today on the right anterior internal hemorrhoid . External hemorrhoids 239 77676 K64.4 Improving with IRC Constipation 59078490 K5 9.00 Is doing well with the Bene Fiber and Miralax. I advised take forever and adjust doses as needed to maintain soft daily BM's. History of transient ischemic attack 035650191 Z86.73 He will stay with every other day on the baby aspirin for now but I advised in about 2 weeks he can go back to taking it daily. 1919 Jaja Walker MD Main Office [address] [facility] [address] [place] [address] 10/09/2017 13:50:08 10/09/2017 14:36:54 Pile easily reducible 106943658 K64.1 Stage 2 internal hemorrhoid s/external hemorrhoid s: He is doing well with infrared coagulatio n treatment. His 4th treatment was done today on the right posterior. External hemorrhoids 239 11894 K64.4 Improved with IRC. Constipation 14825030 K5 9.00 Is doing well with the Bene Fiber and Miralax. I advised take forever and adjust doses as needed to maintain soft daily BM's. 2202 Jaja Walker MD Main Office [address] [facility] [place] [address] 11/06/2017 13:12:28 11/06/2017 13:38:07 Pile easily reducible 938042680 K64.1 Stage 2 - 3 internal hemorrhoid [...] discuss banding or surgery. External hemorrhoids 239 52120 K64.4 Improved with IRC. Constipation 63495771 K5 9.00 Is doing well with the Bene Fiber and Miralax. I advised take forever and adjust doses as needed to maintain soft daily BM's. Screening for malignant neoplasm of colon 405558399 Z12.11 He is going to wait about 6 weeks (after he is back from his vacation to [place]) and then will get his colonoscop y. 2855 Jaja Walker MD Main Office [address] [facility] [address] [place] [address] 02/05/2018 13:03:36 02/05/2018 13:31:42 Pile easily reducible 002908076 K64.1 He has done extremely well with [...] He voiced understand ing. External hemorrhoids 239 95506 K64.4 Improved with IRC. Constipation 84271371 K5 9.00 Is doing well with the Bene Fiber and Miralax. I advised take forever and adjust doses as needed to maintain soft daily BM's. Screening for malignant neoplasm of colon 825021354 Z12.11 He does need to get his [...] Roberson Member ID Guarantor Name 08/14/2017 2 [employer] (MEDICARE SUPPLEMENT) Campbell Coronado [id number] Campbell Coronado 08/14/2017 1 MEDICARE B-[place]: [facility] Campbell Coronado [id number] Campbell Coronaod 09/04/2017 2 [employer] (MEDICARE SUPPLEMENT) Campbell Coronado [id number] Campbell Coronado 09/04/2017 1 MEDICARE [place]: [facility] Campbell Coronado [id number] Campbell Coronado 10/09/2017 2 [employer] (MEDICARE SUPPLEMENT) Campbell Coronado [id number] Campbell Coronado 10/09/2017 1 MEDICARE [place]: [facility] Campbell Coronado [id number] Campbell Coronado 11/06/2017 2 [employer] (MEDICARE SUPPLEMENT) Campbell Coronado [id number] Campbell Coronado 11/06/2017 1 MEDICARE [place]: [facility] Campbell Coronado [id number] Campbell Coronado 02/05/2018 2 [employer] (MEDICARE SUPPLEMENT) Campbell Coronado [id number] Campbell Coronado 02/05/2018 1 MEDICARE B-[place]: [facility] Campbell Coronado [id number] Campbell Coronado Notes Date Note Type Note [...] and BM's are good. Jaja Walker MD [address] [place] [address],[address] [place] [address], [address], [facility] 08/15/2017 11:11:36 09/04/2017 text/html No problem with [...] BM's have been good. Jaja Walker MD [address] [place] [address],[address] [place] [address], [address], [facility] 09/17/2017 15:23:52 10/09/2017 text/html No problem with [...] BM's have been good. Jaja Walker MD [address] [place] [address],[address] [place] [address], [address], [facility] 10/10/2017 15:53:01 11/06/2017 text/html No problem with [...] and a half . Jaja Walker MD [address] [place] [address],[address] [facility], [place], [address], [facility] 11/06/2017 18:56:57 02/05/2018 text/html No problem with treatment and he has been doing great. He enjoyed his trip to [place] and had no symptoms from his hemorrhoids while he was there. He has had no bleeding, no discomfort and no leakage/drainage. He is very happy with his treatment. He continues with the Bene Fiber and Miralax and his BM's have been soft and daily. He did not get his colonoscopy yet. Jaja Walker MD [address] [place] [address],[address], [place], [address], [facility] 02/05/2018 22:44:32
== END 2025-01-21 13:34 | disposition home or self-care (01) ==
PROVIDERS: PCP Nurse Practitioner; Visit Provider Nurse Practitioner
DX: M48.061 Spinal stenosis, lumbar region without neurogenic claudication (principal); G54.8 Other nerve root and plexus disorders; Z85.46 Personal history of malignant neoplasm of prostate
CPT/HCPCS: 72148

== ENCOUNTER 2025-05-17 05:43 | Inpatient (IN) | payer MEDICARE, SELFPAY ==
[2025-05-17] VITALS (14 sets, daily range): BP systolic 127–205; BP diastolic 71–105; PULSE 60–67; RESP 14–20; TEMP 36.3–36.9; O2SAT 93–99; BMI 33.8
--- NOTE | ~2025-05-17 | CT_ITS ---
EXAMINATION: CT abdomen pelvis w con DATE: 05/17/2025 09:29 INDICATION: Epigastric pain TECHNIQUE: Computed tomography (CT) of the abdomen and pelvis was performed with 100 mL Omnipaque-350 intravenous contrast. Automated exposure control and iterative reconstruction technique were employed. The dose-length product was 1184.80 mGy-cm. COMPARISON: 11/21/2015 FINDINGS: Minimal dependent atelectasis in the bilateral lower lobes. There is elevation of left hemidiaphragm. Heart size is normal. Minimal atherosclerotic coronary artery calcific location. No pericardial or pleural effusion. A couple low- attenuation hepatic cysts the largest along the gallbladder fossa measuring 1.7 cm. Gallbladder and right adrenal gland are normal. Small dystrophic calcification at the left adrenal gland likely sequela of chronic infection or hemorrhage.. A few small splenic calcifications consistent with old granulomatous disease. Again seen are few small bilateral renal cysts, the lar gest measuring 1.9 cm the lower pole the right kidney. There is peripancreatic inflammatory stranding surrounding the uncinate process of the pancreas consistent with pancreatitis. There are a few scattered tiny dystrophic calcification in the uncinate process and tail of the pancreas consistent with s equela of chronic pancreatitis. 1.4 cm cystic lesion at the tail of the pancreas increased from 0.8 cm at the time of the study 9 years prior. Fluid throughout the proximal to mid colon consistent with diarrhea. No bowel obstruction. Short appendix versus appendiceal stump post appendectomy with no surrounding from trace stranding to suggest acute appendicitis. Status post prostatectomy. There are small fluid collections along the bilateral external iliac vessels measuring 4.8 cm on the right and 1.9 cm on the left which could be related to seromas related to prior surgery. No abscess or free intraperitoneal gas or fluid. No pathologically enlarged abdominal or pelvic lymphadenopathy. Small bilateral fat-containing inguinal hernias. Mild lumbar levocurvature with mild spondylosis. Mild to moderate bilateral hip osteoarthritis. IMPRESSION: 1. Likely acute on chronic pancreatitis. 2. 1.4 cm cystic lesion at the tail the pancreas, which is increased over the past 9 years from 0.8 cm.. Kidney stigmata of chronic pancreatitis is most likely represents a secondary pseudocyst. Differential would include less likely intraductal papillary mucinous neoplasm (IPMN), mucinous cystic neoplasm (MCN), and the less common serous cystadenoma and neuroendocrine tumor. 3. A couple simple appearing nonspecific simple appearing cystic lesions along the distal bilateral external iliac vessels, the largest on the right measuring 4.8 cm. These likely represent postoperative seromas given the nearby days prior prostatectomy. Correlate with and surgical history for potential associated pelvic lymph node dissection. Reviewed, dictated and finalized at location A. IMPRESSION: 1. Likely acute on chronic pancreatitis. 2. 1.4 cm cystic lesion at the tail the pancreas, which is increased over the p ast 9 years from 0.8 cm.. Kidney stigmata of chronic pancreatitis is most likel y represents a secondary pseudocyst. Differential would include less likely int raductal papillary mucinous neoplasm (IPMN), mucinous cystic neoplasm (MCN), an d the less common serous cystadenoma and neuroendocrine tumor. 3. A couple simple appearing nonspecific simple appearing cystic lesions along the distal bilateral external iliac vessels, the largest on the right measuring 4.8 cm. These likely represent postoperative seromas given the nearby days rachael or prostatectomy. Correlate with and surgical history for potential associated pelvic lymph node dissection.
--- OUTSIDE RECORDS SUMMARY | 2025-05-17 05:46 | XMS_ITS ---
Author Organization [facility] Address [address] [place] [address] Care Team Providers Care C Wpf Developer Name Role Phone Soy Juan Primary Care Provider [phone] Active Problems Problem Noted Date Diagnosed Date SVT (supraventricular tachycardia) 03/14/2025 Polyp, sigmoid colon 05/27/2024 Polyp of ascending [...]
--- OUTSIDE RECORDS SUMMARY | 2025-05-17 05:46 | XMS_ITS | Clinical Summary ---
Author Organization [facility] Care Team Providers Care Balance Truer Name Role Phone Unavailable Primary Care Provider [...] Virus (HCV) Screening 1950 TdaP Immunization 1950 Respiratory Syncytial Virus (RSV) Immunization (Adult) (1 - 1-dose 75+ series) 2023 SARS-COV-2 Immunization (2023- season) 2024 01/31/2021, 01/10/2021 Influenza Immunization (#1) 05/30/202504/2020, 08/21/2019, 07/16/2018, Additional history exists Pneumococcal Immunization (50+ years) Completed 06/04/2016, 06/28/2015 Zoster Immunization Completed 11/11/2019, 9 Hepatitis B Immunization Aged Out No longer eligible based on patient's age to complete this topic Human Papillomavirus (HPV) Immunization Aged Out No longer eligible based on patient's age to complete this topic Meningococcal Immunization (ACWY) Aged Out No longer eligible based on patient's age to complete this topic Rotavirus Immunization Aged Out No lo nger eligible based on patient's age to complete this topic
--- OUTSIDE RECORDS SUMMARY | 2025-05-17 05:46 | XMS_ITS | Encounter Summary ---
Author Organization [facility] Address [address] [place] [place] [address] Care Team Providers Care Glass Frame Fitter Name Role Phone Laura Yates MD Unavailable [phone] Encounter Details Date Type Department Care Team (Late st Contact Info) Description 11/27/2023 Lab Requisition [facility] - [facility] Lab [address] [facility], [place] [address] Jv Asencio MD [facility] DERMATOLOGY [address] [place] [address] Neoplasm of uncertain behavior of skin Social History Tobacco Use Types Packs/Day Years Used Date Smoking Tobacco: Never Alcohol Use Standard Drinks/Week Comments No 0 (1 standard drink = 0.6 oz pur e alcohol) Sex and Gender Information Value Date Recorded Sex Assigned at Not on file 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 Gender Identity Not on file Sexual Orientation Not on file documented as of this encounter Plan of Treatment Not on file documented as of this encounter Procedures Procedure Name Priority Date/Time Associated Diagnosis Comments DERMATOPATHOLOGY Routine 11/27/2023 3:33 AM CRYOLITE RECOVERY OPERATOR Neoplasm of uncertain behavior of skin documented in this encounter Results * DERMATOPATHOLOGY (11/27/2023 3:33 AM CRYOLITE RECOVERY OPERATOR) Case Report Dermatopathology Report Case: [id number] Authorizing Provider: Jv Asencio MD Collected: 11/27/2023 03:33 AM Ordering Location: [facility] Lab Received: 11/28/2023 12:42 PM Pathologist: Silvia Madden MD Specimen: Skin, left mid back 3:[address] [facility] DERMATOPATHOLOGY LABORATORY Final Diagnosis Specimen A. SKIN, left mid back: BENIGN VERRUCOUS KERATOSIS, INFLAMED (L82.1)' 3:[address] [facility] DERMATOPATHOLOGY LABORATORY at 1503 [employer] RECOVERY OPERATOR Clinical History Squamous Cell Carcinoma vs. Irritated Seborrheic Keratosis 3:[address] [facility] DERMATOPATHOLOGY LABORATORY Gross Description Specimen A: Received is one formalin filled container labeled with the patient's name and designated left mid back. The specimen consists of a shave biopsy measuring 10x7x3 mm. Jar 0. 3:[address] [facility] DERMATOPATHOLOGY LABORATORY Microscopic Description Specimen A. SKIN, left mid back: Sections show hyperkeratosis, papillomatosis, hypergranulosis, and acanthosis. Inflammatory cells are present within the dermis. These histological findings can be seen in a verruca vulgaris or a seborrheic keratosis. 3:[address] [facility] DERMATOPATHOLOGY LABORATORY Disclaimer An external and internal positive and negative controls are appropriate for the histochemical, immunohistochemical and immunofluorescence stain(s) in this case (if any), except where stated explicitly. The performance characteristics of the stain(s) cited in this report were developed and its performance characteristic determined by the Dermatopathology Laboratory at [facility], directed by Dr. Sierra Martinez. These tests need not be, and therefore are not, approved by the [place] Food and Drug Administration. The tests are used for clinical purposes. Billing Codes Specimen Charges Stain Charges 23406 1 3:[address] [facility] DERMATOPATHOLOGY LABORATORY Embedded Images 3:[address] [facility] DERMATOPATHOLOGY LABORATORY Pathology/Cytolo gy TISSUE SPECIMEN FROM SKIN / Unknown 11/27/2023 3:33 AM CRYOLITE RECOVERY OPERATOR 11/28/2023 12:42 PM CRYOLITE RECOVERY OPERATOR us Jv Asencio MD LAB - PATHOLOGY/CYTOLOGY HAWAE JAJA Final Result DERMATOPATHOLOGY LABORATORY [facility] - Department of Dermatology [address], [address] [phone] documented in this encounter Visit Diagnoses Diagnosis Neoplasm of uncertain behavior of skin documented in this encounter Care Teams Glass Frame Fitter Relationship Specialty Start Date End Date Laura Yates MD Orthopedic Surgery 05/18/14 documented as of this encounter
--- OUTSIDE RECORDS SUMMARY | 2025-05-17 05:46 | XMS_ITS | Clinical Summary ---
Author Organization [facility] Address [address] [place] [address] Care Team Providers Care Plastic Boat Patcher Name Role Phone Laura Yates MD Unavailable [phone] Source Comments [facility],non-owned Affiliates and Associated Physician Practices is amultiple site organization consisting of ambulatory clinics and hospital sitesin [place], [place], [place] and [place]. This disclosure is being madepursuant to the Care Everywhere program and may not contain all information available regarding this patient. Last updated 18.[facility] Allergies Active Allergy Reactions Criticality Noted Date Comments Levofloxacin Swelling 05/18/2014 Molds & Smuts Shortness of Breath High 05/29/2023 Penicillins 05/18/2014 Sulfa Drugs Rash Low 05/18/2014 Medications * Be aware that medications may not be up to date on this document. Alwaysverify current medications with the patient. traMADol (ULTRAM) 50 MG tablet Take 1 Tab by mouth every 6 hours as needed for Pain. 40 Tab 0 05/19/20 14 Active Additional Information Patient not taking.Reported on 03/23/2025 cephALEXin (KEFLEX) 500 MG capsule Take 1 Cap by mouth 4 times daily. 20 Cap 0 12/24/19 15 Active Additional Information Patient not taking.Reported on 03/23/2025 amLODIPine (NORVASC) 5 MG tabletIndication s:Bilateral knee pain 09/23/20 14 Active hydrochlorothiaz zayra (HYDRODIURIL) 25 MG tabletIndication s:Bilateral knee pain 10/12/19 15 Active hydrocodone-acet aminophen (VICODIN) 5-300 MG tabletIndication s:Bilateral knee pain 01/08/20 15 Active naproxen sodium (ANAPROX DS) 550 MG tabletIndication s:Bilateral knee pain 01/10/20 15 Active Ascorbic Acid 1000 MG Take 1 (one) tablet by mouth once daily Active cetirizine (ZyrTEC) 10 MG tablet Take 1 (one) tablet by mouth every morning Active losartan-hydroCH LOROthiazide (Hyzaar) 100-12.5 MG tablet Take 1 (one) tablet by mouth once daily Active Semaglutide (1 MG/DOSE) 4 MG/3ML Subcutaneous Solution Pen-injector (Ozempic (1 MG/DOSE)) Inject 1 (one) mg subcutaneously every 7 days (once a week) Active Active Problems Problem Noted Date Diagnosed Date Knee pain 05/20/2014 Encounters Date Type Department Care Team Description 03/23/2025 11:30 AM CDT Office Visit [facility] [address] [place] [address] Janice Umanzor MD Rectus diastasis (Primary Dx) from Last 3 Months Family History Medical History Relation Name Comments Hypertension Brother Stroke Brother Relation Name Status Comments Brother Social History Tobacco Use Types Packs/Day Years Used Date Smoking Tobacco: Never Alcohol Use Standard Drinks/Week Comments Yes 0 (1 standard drink = 0.6 oz pur e alcohol) ocassionallly PHQ-2 Answer Date Recorded Patient Health Questionnaire-2 Score 0 03/23/2025 Sex and Gender Information Value Date Recorded Sex Assigned at Not on file 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 Gender Identity Not on file Sexual Orientation Not on file Last Filed Vital Signs Vital Sign Reading Time Taken Comments Blood Pressure 118/78 03/23/2025 10:00 AM CDT Pulse 75 03/23/2025 10:00 AM CDT Temperature 36.4 C (97.5 F) 03/23/2025 10:00 AM CDT Respiratory Rate 20 03/23/2025 10:00 AM CDT Oxygen Saturation 96% 03/23/2025 10:00 AM CDT Inhaled Oxygen Concentration - - Weight 100 kg (220 lb 6.4 oz) 03/23/2025 10:00 A M CDT Height 172.7 cm (5' 8) 03/23/2025 10:00 AM CDT Body Mass Index 33.51 03/23/2025 10:00 AM CDT Plan of Treatment Health Maintenance Due Date Last Done Comments HEPATITIS C SCREENING 09/26/1968 DTAP/TDAP/TD VACCINES (1 - Tdap) 1967 PNEUMOCOCCAL VACCINE 50+ (1 of 1 - PCV) 1998 ZOSTER VACCINE (1 of 2) 1998 Respiratory Syncytial Virus (RSV) Vaccine Pt: or over 60 yrs (1 - 1-dose 75+ series) 2023 COVID-19 VACCINE (1 - 2023-2 5 season) 2024 MEDICARE AWV CALENDAR YEAR 2024 INFLUENZA VACCINE (#1) 2025 DEPRESSION SCREENING Completed 03/23/2025 HEPATITIS B VACCINE Aged Out No longe [...] patient's age to complete this topic Insurance [facility] MANAGED MEDICARE ADV [facility] MANAGED MEDICARE ADV Care Teams Plastic Boat Patcher Relationship Specialty Start Date End Date Laura Yates MD Orthopedic Surgery 05/18/14
--- OUTSIDE RECORDS SUMMARY | 2025-05-17 05:46 | XMS_ITS | Encounter Summary ---
Author Organization [facility] Address [address] [place] [address] Care Team Providers Care Scientific Programmer Analyst Name Role Phone Laura Yates MD Unavailable [phone] Encounter Details Date Type Department Care Team (Late st Contact Info) Description 09/02/2024 Lab Requisition [facility] DermPath Lab [address], [place] [id number] Jv Asencio MD [facility] [address] [place] [phone] Neoplasm of uncertain behavior of skin Social History Tobacco Use Types Packs/Day Years Used Date Smoking Tobacco: Never Alcohol Use Standard Drinks/Week Comments No 0 (1 standard drink = 0.6 oz pur e alcohol) Sex and Gender Information Value Date Recorded Sex Assigned at Not on file Legal Sex Male 10:41 AM DIRECTOR DISTRIBUTION Gender Identity Not on file Sexual Orientation Not on file documented as of this encounter Plan of Treatment Not on file documented as of this encounter Procedures Procedure Name Priority Date/Time Associated Diagnosis Comments DERMATOPATHOLOGY Routine 09/02/2024 12:0 0 AM DIRECTOR DISTRIBUTION Neoplasm of uncertain behavior of skin documented in this encounter Results * DERMATOPATHOLOGY (09/02/2024 12:00 AM DIRECTOR DISTRIBUTION) Case Report Dermatopathology Report Case: [id number] Authorizing Provider: Jv Asencio MD Collected: 09/02/2024 12:00 AM Ordering Location: [facility] - Received: 09/06/2024 01:59 PM DermPath Lab Pathologist: Halle Chapman MD Specimens: A) - Skin, right zygoma B) - Skin, right outer canthus C) - Skin, left lower cheek D) - Skin, left [place] of antihelix 2:23 PM [facility] Final Diagnosis Specimen A. [...] (see microscopic description and comment) 2:23 PM [facility] at 1423 DIRECTOR DISTRIBUTION Clinical History BCC vs SCC 2:23 PM [facility] Gross Description Specimen A: [...] measuring 4x3x1 mm. Jar 0. 2:23 PM [facility] Microscopic Description Specimen A. [...] cannot be ruled out. 4 2:23 PM [facility] DERMATOPATHOLOGY LABORATORY Disclaimer An external and internal positive and negative controls are appropriate for the histochemical, immunohistochemical and immunofluorescence stain(s) in this case (if any), except where stated explicitly. The performance characteristics of the stain(s) cited in this report were developed and its performance characteristic determined by the Dermatopathology Laboratory at [facility], directed by Dr. Sierra Martinez. These tests need not be, and therefore are not, approved by the [place] Food and Drug Administration. The tests are used for clinical purposes. Billing Codes Specimen Charges Stain Charges 47178 33929 [id number] 1 1 1 1 4 2:23 PM [facility] DERMATOPATHOLOGY LABORATORY Embedded Images 4 2:23 PM [facility] DIST[facility]BUT[facility] DERMATOPATHOLOGY LABORATORY Pathology/Cytology TISSUE SPECIMEN FROM SKIN / Unknown 09/02/2024 09/06/2024 1:59 PM DIRECTOR DISTRIBUTION Miscellaneous samples (specimen) TISSUE SPECIMEN FROM SKIN / Unknown 09/02/2024 09/06/2024 1:59 PM DIRECTOR DISTRIBUTION Miscellaneous samples (specimen) TISSUE SPECIMEN FROM SKIN / Unknown 09/02/2024 09/06/2024 1:59 PM DIRECTOR DISTRIBUTION Miscellaneous samples (specimen) TISSUE SPECIMEN FROM SKIN / Unknown 09/02/2024 09/06/2024 1:59 PM DIRECTOR DISTRIBUTION us Jv Asencio MD LAB - PATHOLOGY/CYTOLOGY [facility] Final Result DERMATOPATHOLOGY LABORATORY [facility] - Department of Dermatology [facility] [address] [place] [address], [address] [place] [address], [facility] [phone] documented in this encounter Visit Diagnoses Diagnosis Neoplasm of uncertain behavior of skin documented in this encounter Care Teams Scientific Programmer Analyst Relationship Specialty Start Date End Date Laura Yates MD Orthopedic Surgery 05/18/14 documented as of this encounter
--- NOTE | 2025-05-17 05:54 | ECG_ITS ---
Test Date: 2025-05-17 06:17:59 Measurements Intervals [place] Rate: 63 P: 15 ID: 205 QRS: 11 QRSD: 81 T: 78 QT: 434 QTc: 448 Interpretive Statements SINUS RHYTHM DELAYED PRECORDIAL R/S TRANSITION BORDERLINE ST-T WAVE ABNORMALITY- LAT/HIGH LAT LEADS BASELINE ARTIFACT- I, II, AVR BORDERLINE ECG COMPARED WITH PRIOR ECG 07-29-24 16:10 NO SIGNIFICANT CHANGE Electronically Signed On 05-17-2025 06:19:23 CDT by Yoel Poole D.O.
--- NOTE | 2025-05-17 05:55 | ED.GENADULT ---
HPI - General Adult General Chief complaint: Abdominal Pain <Lon Whittaker MD - Last Filed: 05/18/25 04:02> Stated complaint: abd pain <Lon Whittaker MD - Last Filed: 05/18/25 04:02> Time Seen by Provider: 05/17/25 05:47 <Lon Whittaker MD - Last Filed: 05/18/25 04:02> History of Present Illness HPI narrative: 74-year-old male present to the emergency department for evaluation for epigastric right upper quadrant abdominal pain. Patient states he had some bad Telugu food last night. Patient states he has had dry heaves when lying on his left and does have some epigastric and right upper quadrant abdominal pain. <Lon Whittaker MD - Last Filed: 05/18/25 04:02> Related Data Home medications: Home Medications ?Medication ?Instructions ?Recorded ?Confirmed ?Last Taken ?Type cetirizine 10 mg tablet (Allergy 10 mg PO DAILY 10/08/19 05/17/25 05/16/25 History Relief (cetirizine)) ascorbic acid (vitamin C) 1,000 mg 1 g PO DAILY 11/18/23 05/17/25 05/15/25 History tablet polyethylene glycol 3350 17 17 g PO HS 07/29/24 05/17/25 05/16/25 History gram/dose oral powder (Miralax) <Lon Whittaker MD - Last Filed: 05/18/25 04:02> Allergies/adverse reactions: Allergies Allergy/AdvReac Type Severity Reaction Status Date / Time levofloxacin Allergy Mild Swelling Verified 05/17/25 05:44 Penicillins Allergy Mild Flushing Verified 05/17/25 05:44 Sulfa (Sulfonamide Allergy Mild swelling Verified 05/17/25 05:44 Antibiotics) <Lon Whittaker MD - Last Filed: 05/18/25 04:02> Review of Systems Review of Systems: All systems reviewed & are unremarkable except as noted in HPI and below <Lon Whittaker MD - Last Filed: 05/18/25 04:02> PMFSH Past Medical History Medical History: Medical History TIA (transient ischemic attack) Anxiety Hernia Diastolic murmur Obstructive sleep apnea (~10/2020) Squamous cell carcinoma History of pancreatitis Benign prostatic hyperplasia Hyperlipidemia Hypertension Type 2 diabetes mellitus Gout Vitamin D deficiency <Lon Whittaker MD - Last Filed: 05/18/25 04:02> Surgical History Surgical History: Surgical History Hx of colonoscopy History of prostatectomy History of surgical removal of squamous cell carcinoma of skin of right confucianism History of arthroscopy of left knee History of cardiac catheterization July 2011, done at [facility] after an abnormal EKG portion of a stress test with normal myocardial perfusion images. Minimal nonobstructing coronary artery disease was noted. History of testicular surgery H/O left knee surgery <Lon Whittaker MD - Last Filed: 05/18/25 04:02> Family History Family History: Family History Mother Carcinoma of colon Father No problems noted. Sibling Hypertension Pacemaker Cerebrovascular accident <Lon Whittaker MD - Last Filed: 05/18/25 04:02> Social History Social History: Social History Social History: The patient lives with his in [place]. 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 He designates his , Sharmaine, as his surrogate decision maker and he wishes to be a full code. He denies tobacco and drug use. He drinks 6 ounces of scotch, most nights of the week. 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 HEAD: normocephalic, atraumatic. EYES: PERRLA/EOMI, conjunctivae clear. NOSE: Normal no drainage EARS:TMS clear with good light reflex. THROAT: Pharynx clear, no exudate. NECK: Supple. No adenopathy, no masses. RESPIRATORY: Airway patent, respirations nonlabored. Clear to auscultation bilaterally, no rales, rhonchi, wheezing. CARDIOVASCULAR: Regular rate and rhythm without murmurs rubs or gallops. ABDOMINAL: Right upper quadrant abdominal pain with tenderness to palpate MUSCULOSKELETAL: Moves all extremities. Strength/ROM intact, No edema, No calf tenderness. NEURO: Alert. Cranial nerves II through XII intact. Good gait. Good coordination SKIN: Warm, dry. Normal Color <Lon Whittaker MD - Last Filed: 05/18/25 04:02> Course Reevaluation(s) Reevaluation #1: Patient having some pain on re-evaluation, morphine ordered, he feels better, CT does show acute on chronic pancreatitis. Patient agreeable to admission, discussed with hospitalist. <Alta Andrews MD - Last Filed: 05/17/25 10:38> Vital Signs Vital signs: Vital Signs Temperature 98.5 F 05/17/25 05:51 Pulse Rate 67 05/17/25 05:51 Respiratory Rate 15 05/17/25 05:51 Blood Pressure 191/95 H 05/17/25 05:51 Pulse Oximetry 96 05/17/25 05:51 Oxygen Delivery Room Air 05/17/25 05:51 Temperature 97.7 F 05/18/25 02:55 Pulse Rate 61 05/18/25 02:55 Respiratory Rate 20 05/18/25 02:55 Blood Pressure 123/68 05/18/25 02:55 Pulse Oximetry 93 05/18/25 02:55 Oxygen Delivery Room Air 05/17/25 20:00 <Lon Whittaker MD - Last Filed: 05/18/25 04:02> Vital Signs Temperature 98.5 F 05/17/25 05:51 Pulse Rate 67 05/17/25 05:51 Respiratory Rate 15 05/17/25 05:51 Blood Pressure 191/95 H 05/17/25 05:51 Pulse Oximetry 96 05/17/25 05:51 Oxygen Delivery Room Air 05/17/25 05:51 Temperature 97.7 F 05/18/25 02:55 Pulse Rate 61 05/18/25 02:55 Respiratory Rate 20 05/18/25 02:55 Blood Pressure 123/68 05/18/25 02:55 Pulse Oximetry 93 05/18/25 02:55 Oxygen Delivery Room Air 05/17/25 20:00 <Alta Adnrews MD - Last Filed: 05/17/25 10:38> Medical Decision Making MDM Narrative Medical decision making narrative: 74-year-old male presents emergency department for evaluation for abdominal pain. Patient has labs and imaging pending at time of sign-out. <Lon Whittaker MD - Last Filed: 05/18/25 04:02> Vital Signs Vital Signs: Vital Signs Temperature 98.5 F 05/17/25 05:51 Pulse Rate 67 05/17/25 05:51 Respiratory Rate 15 05/17/25 05:51 Blood Pressure 191/95 H 05/17/25 05:51 Pulse Oximetry 96 05/17/25 05:51 Oxygen Delivery Room Air 05/17/25 05:51 Temperature 97.7 F 05/18/25 02:55 Pulse Rate 61 05/18/25 02:55 Respiratory Rate 20 05/18/25 02:55 Blood Pressure 123/68 05/18/25 02:55 Pulse Oximetry 93 05/18/25 02:55 Oxygen Delivery Room Air 05/17/25 20:00 <Lon Whittaker MD - Last Filed: 05/18/25 04:02> Vital Signs Temperature 98.5 F 05/17/25 05:51 Pulse Rate 67 05/17/25 05:51 Respiratory Rate 15 05/17/25 05:51 Blood Pressure 191/95 H 05/17/25 05:51 Pulse Oximetry 96 05/17/25 05:51 Oxygen Delivery Room Air 05/17/25 05:51 Temperature 97.7 F 05/18/25 02:55 Pulse Rate 61 05/18/25 02:55 Respiratory Rate 20 05/18/25 02:55 Blood Pressure 123/68 05/18/25 02:55 Pulse Oximetry 93 05/18/25 02:55 Oxygen Delivery Room Air 05/17/25 20:00 <Alta Andrews MD - Last Filed: 05/17/25 10:38> Lab Data Result diagrams: 05/17/25 06:15 05/17/25 23:21 <Lon Whittaker MD - Last Filed: 05/18/25 04:02> Labs: Lab Results 05/17/25 05/17/25 Range/Units 06:15 06:32 WBC 11.2 H (4.5-10.0) K/mm3 RBC 5.03 (4.6-6.20) M/mm3 Hgb 15.8 (14.0-18.0) g/dL Hct 44.1 (42.0-52.0) % MCV 87.7 (80-100) fl MCH 31.4 (26-34) pg MCHC 35.8 (32-36) g/dl RDW 12.8 (11.5-14.5) % Plt Count 220 (150-375) k/mm3 MPV 8.8 (7.4-10.4) fl Immature Gran % (Auto) 0.7 H (0-0.5) % Neut % (Auto) 74.8 H (45.5-73.1) % Lymph % (Auto) 8.8 L (18.3-44.2) % [place] % (Auto) 11.3 H (2.6-8.5) % Eos % (Auto) 3.8 (0-4.4) % Baso % (Auto) 0.6 (0.2-1.2) % Lymph # (Auto) 0.98 (0.9-3.2) K/mm3 [place] # (Auto) 1.3 H (0.1-0.6) K/mm3 Eos # (Auto) 0.4 H (0-0.3) K/mm3 Baso # (Auto) 0.1 (0.0-0.1) K/mm3 Abs Immat Gran (auto) 0.08 H (0.00-0.031) K/mm3 Absolute Neuts (auto) 8.4 H (1.3-6.7) K/mm3 Absolute Nucleated RBC 0.000 (0.0-0.012) K/mm3 Nucleated RBC % 0.0 (0.0-0.2) % PT 13.9 (11.1-14.7) Seconds INR 1.1 APTT 27.2 (22.3-36.8) Seconds Sodium 131 L (137-145) mmol/L Potassium 3.7 (3.4-5.0) mmol/L Chloride 97 L (98-107) mmol/L Carbon Dioxide 25 (22-30) mmol/L Anion Gap 9 (4-12) mmol/L BUN 12 (9-20) mg/dL Creatinine 0.87 (0.7-1.3) mg/dL Estim Creat Clear Calc 73 ml/min Estimated GFR > 60 (59 - ) Glucose 158 H (65-110) mg/dL Lactic Acid 1.5 (0.7-2.0) mmol/L Calcium 8.8 (8.4-10.2) mg/dL Total Bilirubin 1.4 H (0.2-1.3) mg/dL AST 38 (17-59) U/L ALT 35 (6-50) U/L Alkaline Phosphatase 76 (38-126) U/L Total Protein 7.9 (6.3-8.2) g/dL Albumin 4.5 (3.5-5.1) g/dL Lipase 146 (23-300) U/L Urine Color Yellow (Yellow) Urine Appearance Cloudy H (Clear) Urine pH 8.5 (5.0-9.0) Ur Specific [place] 1.013 (1.001-1.035) Urine Protein Trace (Negative) mg/dL Urine Glucose (UA) Negative (Negative) mg/dL Urine Ketones Negative (Negative) mg/dL Ur Blood (Man) Negative (Negative) Urine Nitrate Negative (Negative) Urine Bilirubin Negative (Negative) Urine Urobilinogen 0.2 (<2.0) mg/dL Leukocyte Esterase Rfl Negative (Negative) REYNA/UL Urine RBC 3-5 H (0-2) /hpf Urine WBC 0-5 (0-3) /hpf Ur Squamous Epith Cells None seen (Few) /hpf Urine Bacteria None seen /hpf Urine Casts 0-2 <Lon Whittaker MD - Last Filed: 05/18/25 04:02> Lab Results 05/17/25 05/17/25 Range/Units 06:15 06:32 WBC 11.2 H (4.5-10.0) K/mm3 RBC 5.03 (4.6-6.20) M/mm3 Hgb 15.8 (14.0-18.0) g/dL Hct 44.1 (42.0-52.0) % MCV 87.7 (80-100) fl MCH 31.4 (26-34) pg MCHC 35.8 (32-36) g/dl RDW 12.8 (11.5-14.5) % Plt Count 220 (150-375) k/mm3 MPV 8.8 (7.4-10.4) fl Immature Gran % (Auto) 0.7 H (0-0.5) % Neut % (Auto) 74.8 H (45.5-73.1) % Lymph % (Auto) 8.8 L (18.3-44.2) % [place] % (Auto) 11.3 H (2.6-8.5) % Eos % (Auto) 3.8 (0-4.4) % Baso % (Auto) 0.6 (0.2-1.2) % Lymph # (Auto) 0.98 (0.9-3.2) K/mm3 [place] # (Auto) 1.3 H (0.1-0.6) K/mm3 Eos # (Auto) 0.4 H (0-0.3) K/mm3 Baso # (Auto) 0.1 (0.0-0.1) K/mm3 Abs Immat Gran (auto) 0.08 H (0.00-0.031) K/mm3 Absolute Neuts (auto) 8.4 H (1.3-6.7) K/mm3 Absolute Nucleated RBC 0.000 (0.0-0.012) K/mm3 Nucleated RBC % 0.0 (0.0-0.2) % PT 13.9 (11.1-14.7) Seconds INR 1.1 APTT 27.2 (22.3-36.8) Seconds Sodium 131 L (137-145) mmol/L Potassium 3.7 (3.4-5.0) mmol/L Chloride 97 L (98-107) mmol/L Carbon Dioxide 25 (22-30) mmol/L Anion Gap 9 (4-12) mmol/L BUN 12 (9-20) mg/dL Creatinine 0.87 (0.7-1.3) mg/dL Estim Creat Clear Calc 73 ml/min Estimated GFR > 60 (59 - ) Glucose 158 H (65-110) mg/dL Lactic Acid 1.5 (0.7-2.0) mmol/L Calcium 8.8 (8.4-10.2) mg/dL Total Bilirubin 1.4 H (0.2-1.3) mg/dL AST 38 (17-59) U/L ALT 35 (6-50) U/L Alkaline Phosphatase 76 (38-126) U/L Total Protein 7.9 (6.3-8.2) g/dL Albumin 4.5 (3.5-5.1) g/dL Lipase 146 (23-300) U/L Urine Color Yellow (Yellow) Urine Appearance Cloudy H (Clear) Urine pH 8.5 (5.0-9.0) Ur Specific [place] 1.013 (1.001-1.035) Urine Protein Trace (Negative) mg/dL Urine Glucose (UA) Negative (Negative) mg/dL Urine Ketones Negative (Negative) mg/dL Ur Blood (Man) Negative (Negative) Urine Nitrate Negative (Negative) Urine Bilirubin Negative (Negative) Urine Urobilinogen 0.2 (<2.0) mg/dL Leukocyte Esterase Rfl Negative (Negative) REYNA/UL Urine RBC 3-5 H (0-2) /hpf Urine WBC 0-5 (0-3) /hpf Ur Squamous Epith Cells None seen (Few) /hpf Urine Bacteria None seen /hpf Urine Casts 0-2 <Alta Andrews MD - Last Filed: 05/17/25 10:38> Discharge Plan Discharge Clinical Impression: Acute on chronic pancreatitis, Right upper quadrant abdominal pain <Lon Whittaker MD - Last Filed: 05/18/25 04:02> Patient Disposition: Still a Patient <Lon Whittaker MD - Last Filed: 05/18/25 04:02> Condition: Stable <Lon Whittaker MD - Last Filed: 05/18/25 04:02>
[2025-05-17] MEDS: ONDANSETRON INJ 4 MG/2 ML VIAL IV PUSH (06:12)
--- OUTSIDE RECORDS SUMMARY | 2025-05-17 06:15 | XMS_ITS | Clinical Summary ---
Author Organization [facility] Care Team Providers Care Nail Expert Name Role Phone Unavailable Primary Care Provider [...]
--- OUTSIDE RECORDS SUMMARY | 2025-05-17 06:15 | XMS_ITS | Encounter Summary ---
Author Organization [facility] Address [address] [place] [address] Care Team Providers Care Teacher Physically Impaired Name Role Phone Laura Yates MD Unavailable [phone] Encounter Details Date Type Department Care Team (Late st Contact Info) Description 11/27/2023 Lab Requisition [facility] - DermPath Lab [address], [place] [phone] Jv Asencio MD [facility] [address] [place] [phone] Neoplasm of uncertain behavior of skin Social History Tobacco Use Types Packs/Day Years Used Date Smoking Tobacco: Never Alcohol Use Standard Drinks/Week Comments No 0 (1 standard drink = 0.6 oz pur e alcohol) Sex and Gender Information Value Date Recorded Sex Assigned at Not on file Legal Sex Male 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 Gender Identity Not on file Sexual Orientation Not on file documented as of this encounter Plan of Treatment Not on file documented as of this encounter Procedures Procedure Name Priority Date/Time Associated Diagnosis Comments DERMATOPATHOLOGY Routine 11/27/2023 3:33 AM VIDEO GAMES STORYWRITER Neoplasm of uncertain behavior of skin documented in this encounter Results * DERMATOPATHOLOGY (11/27/2023 3:33 AM VIDEO GAMES STORYWRITER) Case Report Dermatopathology Report Case: [id number] Authorizing Provider: Jv Asencio MD Collected: 11/27/2023 03:33 AM Ordering Location: [facility] Received: 11/28/2023 12:42 PM Pathologist: Silvia Madden MD Specimen: Skin, left mid back 3:03 PM [facility] DERMATOPATH[facility]OR[facility] Final Diagnosis Specimen A. SKIN, left mid back: BENIGN VERRUCOUS KERATOSIS, INFLAMED (L82.1)' 3:03 PM [facility] DERMATOPATHOLOGY LABORATORY at 1503 VIDEO GAMES STORYWRITER Clinical History Squamous Cell Carcinoma vs. Irritated Seborrheic Keratosis 3:03 PM [facility] DERMATOPATHOLOGY [facility] Gross Description Specimen A: Received is one formalin filled container labeled with the patient's name and designated left mid back. The specimen consists of a shave biopsy measuring 10x7x3 mm. Jar 0. 3:03 PM [facility] DERMATOPATHOLOGY [facility] Microscopic Description Specimen A. SKIN, left mid back: Sections show hyperkeratosis, papillomatosis, hypergranulosis, and acanthosis. Inflammatory cells are present within the dermis. These histological findings can be seen in a verruca vulgaris or a seborrheic keratosis. 3:03 PM [facility] DERMATOPATHOLOGY [facility]OR[facility] Disclaimer An external and internal positive and negative controls are appropriate for the histochemical, immunohistochemical and immunofluorescence stain(s) in this case (if any), except where stated explicitly. The performance characteristics of the stain(s) cited in this report were developed and its performance characteristic determined by the Dermatopathology Laboratory at [facility], directed by Dr. Sierra Martinez. These tests need not be, and therefore are not, approved by the [place] Food and Drug Administration. The tests are used for clinical purposes. Billing Codes Specimen Charges Stain Charges 11249 1 3:03 PM [facility] DERMATOPATHOLOGY [facility]ORATORY Embedded Images 3:03 PM [facility] DERMATOPATHOLOGY [facility]ORY Pathology/Cytolo gy TISSUE SPECIMEN FROM SKIN / Unknown 11/27/2023 3:33 AM VIDEO GAMES STORYWRITER 11/28/2023 12:42 PM VIDEO GAMES STORYWRITER us Jv Asencio MD LAB - PATHOLOGY/CYTOLOGY [facility]JA Final Result DERMATOPATHOLOGY LABORATORY [facility] - Department of Dermatology [address], [address] [phone] documented in this encounter Visit Diagnoses Diagnosis Neoplasm of uncertain behavior of skin documented in this encounter Care Teams Teacher Physically Impaired Relationship Specialty Start Date End Date Laura Yates MD Orthopedic Surgery 05/18/14 documented as of this encounter
--- OUTSIDE RECORDS SUMMARY | 2025-05-17 06:15 | XMS_ITS | Clinical Summary ---
Author Organization [facility] [email or web address] Address [address] [place] [address] Care Team Providers Care Fence Erector Name Role Phone Laura Yates MD Unavailable [phone] Source Comments [facility],non-owned Affiliates and Associated Physician Practices is amultiple site organization consisting of ambulatory clinics and hospital sitesin [place], [place], [place] and [place]. This disclosure is being madepursuant to the Care Everywhere program and may not contain all information available regarding this patient. 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
--- OUTSIDE RECORDS SUMMARY | 2025-05-17 06:15 | XMS_ITS ---
Author Organization [facility] Clinical [facility] Address [address] [place] [phone] Care Team Providers Care Barn Operator Name Role Phone Soy Juan Primary Care Provider [phone] Active Problems Problem Noted Date Diagnosed Date [...]
--- OUTSIDE RECORDS SUMMARY | 2025-05-17 06:15 | XMS_ITS | Clinical Summary ---
Author Organization [facility] Address [address] [place] [address] Care Team Providers Care Law Tutor Name Role Phone Soy Juan Primary Care Provider [phone] Allergies Active Allergy Reactions Criticality Noted Date [...] (1,000 mg total) by mouth daily. Active Encounters Date Type Department Care Team Description 03/25/2025 8:00 AM CDT - 03/25/2025 11:59 PM CDT Hospital Encounter [facility] [address] [place] [address] Amber Metzger, Discharge Disposition: Home or Self Care (Routine Discharge) 03/25/2025 Travel from Last 3 Months Social History Tobacco Use Types Packs/Day Years Used Date Smoking Tobacco: Never Assessed Sex and Gender Information Value Date Recorded Sex Assigned at Not on file Legal Sex Male 6:43 PM CDT Gender Identity Not on file Sexual Orientation Not on file Last Filed Vital Signs Vital Sign Reading Time Taken Comments Blood Pressure 131/85 12/04/2023 8:39 PM PRECISION STRUCTURAL METAL FITTER Pulse 84 12/04/2023 8:39 PM PRECISION STRUCTURAL METAL FITTER Temperature 36.3 C (97.3 F) 12/04/2023 4:40 PM PRECISION STRUCTURAL METAL FITTER Respiratory Rate 13 12/04/2023 5:00 PM PRECISION STRUCTURAL METAL FITTER Oxygen Saturation 99% 12/04/2023 8:39 PM PRECISION STRUCTURAL METAL FITTER Inhaled Oxygen Concentration - - Weight 95.4 kg (210 lb 6.4 oz) 12/04/2023 4:40 P M PRECISION STRUCTURAL METAL FITTER Height 172.7 cm (5' 8) 12/04/2023 4:40 PM PRECISION STRUCTURAL METAL FITTER Body Mass Index 31.99 12/04/2023 4:40 PM PRECISION STRUCTURAL METAL FITTER Plan of Treatment Health Maintenance Due Date Last Done Comments Hepatitis C 1968 DTaP, Tdap and Td Vaccines ( 1 - Tdap) 1969 Annual Medicare Wellness Visit 2013 RSV Immunization or 60+ Years (1 - 1-dose 75+ series) 2023 COVID-19 Vaccine (3 - 2023-2 5 season) 2024 01/31/2021, 01/10/2021 Zoster Vaccines Completed 11/11/2019, 08/21/2019 Pneumococcal Vaccine: 50+ Years Completed 06/17/2022, 06/04/2016, 06/28/2015 Meningococcal B Vaccine Aged Out No l onger eligible based on patient's age to complete this topic Meningococcal Vaccine Aged Out No elgin mary eligible based on patient's age to complete this topic RSV Immunizations Under 20 Months Aged Out No longer eligible b ased on patient's age to complete this topic Procedures Procedure Name Priority Date/Time Associated Diagnosis Comments XR KNEE RT MIN 4V Routine 03/25/2025 8:2 0 AM CDT Right knee pain from Last 3 Months Results * XR KNEE RT MIN 4V (03/25/2025 8:20 AM CDT) Anatomical Region Laterality Modality Knee Radiographic Demetra ging 03/28/2025 8:59 AM CDT Impressions 03/28/2025 9:01 AM CDT IMPRESSION: 1. No acute abnormality. 2. Stable mild degenerative changes. 3. Osteopenia. Ordered By: AMBER METZGER Interpreted By: Rahat Diaz 03/28/2025 8:59 AM Narrative 03/28/2025 9:01 AM CDT [facility] [address] [place] [phone] IMAGING STUDIES: XR KNEE RT MIN 4V DATE: 03/25/2025 8:05 AM COMPARISON: March 07, 2023 CLINICAL HISTORY: PAIN . No history of trauma FINDINGS: There is no evidence of acute fracture, dislocation, or osseous erosion. Osteopenia limits exam. Stable mild loss of medial joint space with mild medial osteophyte. Stable mild tibial spine spurring. Lateral joint spaces well-maintained without osteophyte. No radiopaque foreign bodies or abnormal soft tissue calcifications noted. Patella is intact. Stable moderate patellar spur. No gross joint effusion. Stable mild calcifications in the distal patellar tendon. May be due to history of healed prior partial tear. Procedure Note Gadiel Diaz MD - 03/28/2025 [facility] [address] [place] [phone] IMAGING STUDIES: XR KNEE RT MIN 4V DATE: 03/25/2025 8:05 AM COMPARISON: March 07, 2023 CLINICAL HISTORY: PAIN . No history of trauma FINDINGS: There is no evidence of acute fracture, dislocation, or osseous erosion.Osteopenia limits exam. Stable mild loss of medial joint space with mild medial osteophyte. Stablemild tibial spine spurring. Lateral joint spaces well-maintained without osteophyte. No radiopaque foreign bodies or abnormal soft tissue calcificationsnoted. Patella is intact. Stable moderate patellar spur. No gross jointeffusion. Stable mild calcifications in the distal patellar tendon. May be due tohistory of healed prior partial tear. IMPRESSION: 1. No acute abnormality. 2. Stable mild degenerative changes. 3. Osteopenia. Ordered By: AMBER METZGER Interpreted By: Rahat Diaz, 03/28/2025 8:59 AM Amber Metzger DO GENERAL IMAGING Final Result from Last 3 Months Insurance [facility] Care Teams Law Tutor Relationship Specialty Start Date End Date Soy Juan DO [address] [address] PCP - General INTERNAL MEDICINE 03/25/25
--- OUTSIDE RECORDS SUMMARY | 2025-05-17 06:15 | XMS_ITS | Encounter Summary ---
Author Organization [facility] Address [address] [place] [address] Care Team Providers Care Bridge Game Director Name Role Phone Laura Yates MD Unavailable [phone] Encounter Details Date Type Department Care Team (Late st Contact Info) Description 09/02/2024 Lab Requisition [facility] - DermPath Lab [address], [place] [phone] Jv Asencio MD [facility] DERMAT[facility] [address] [place] [phone] Neoplasm of uncertain behavior of skin Social History Tobacco Use Types Packs/Day Years Used Date Smoking Tobacco: Never Alcohol Use Standard Drinks/Week Comments No 0 (1 standard drink = 0.6 oz pur e alcohol) Sex and Gender Information Value Date Recorded Sex Assigned at Not on file Legal Sex Male 10:41 AM LENDING MANAGER Gender Identity Not on file Sexual Orientation Not on file documented as of this encounter Plan of Treatment Not on file documented as of this encounter Procedures Procedure Name Priority Date/Time Associated Diagnosis Comments DERMATOPATHOLOGY Routine 09/02/2024 12:0 0 AM LENDING MANAGER Neoplasm of uncertain behavior of skin documented in this encounter Results * DERMATOPATHOLOGY (09/02/2024 12:00 AM LENDING MANAGER) Case Report Dermatopathology Report Case: [id number] Authorizing Provider: Jv Asencio MD Collected: 09/02/2024 12:00 AM Ordering Location: [facility] - Received: 09/06/2024 01:59 PM DermPath Lab Pathologist: Halle Chapman MD Specimens: A) - Skin, right zygoma B) - Skin, right outer canthus C) - Skin, left lower cheek D) - Skin, left modesto of antihelix 2:23 PM [facility] Final Diagnosis Specimen A. SKIN, [...] (see microscopic description and comment) 2:23 PM [facility] at 1423 LENDING MANAGER Clinical History BCC vs SCC 2:23 PM [facility] Gross Description Specimen A: Received [...] measuring 4x3x1 mm. Jar 0. 2:23 PM [facility] Microscopic Description Specimen A. SKIN, [...] cannot be ruled out. 4 2:23 PM LENDING MANAGER DERMATOPATHOLOGY LABORATORY Disclaimer An external and internal positive and negative controls are appropriate for the histochemical, immunohistochemical and immunofluorescence stain(s) in this case (if any), except where stated explicitly. The performance characteristics of the stain(s) cited in this report were developed and its performance characteristic determined by the Dermatopathology Laboratory at [facility], directed by Dr. Sierra Martinez. These tests need not be, and therefore are not, approved by the [place] Food and Drug Administration. The tests are used for clinical purposes. Billing Codes Specimen Charges Stain Charges 49139 76708 [id number] 1 1 1 1 4 2:23 PM LENDING MANAGER DERMATOPATHOLOGY LABORATORY Embedded Images 4 2:23 PM LENDING MANAGER DERMATOPATHOLOGY LABORATORY Pathology/Cytology TISSUE SPECIMEN FROM SKIN / Unknown 09/02/2024 09/06/2024 1:59 PM LENDING MANAGER Miscellaneous samples (specimen) TISSUE SPECIMEN FROM SKIN / Unknown 09/02/2024 09/06/2024 1:59 PM LENDING MANAGER Miscellaneous samples (specimen) TISSUE SPECIMEN FROM SKIN / Unknown 09/02/2024 09/06/2024 1:59 PM LENDING MANAGER Miscellaneous samples (specimen) TISSUE SPECIMEN FROM SKIN / Unknown 09/02/2024 09/06/2024 1:59 PM LENDING MANAGER us Jv Asencio MD LAB - PATHOLOGY/CYTOLOGY JORDON WILKINSON Final Result DERMATOPATHOLOGY LABORATORY [facility] - Department of Dermatology [facility] Medicine [address] [place] [address], [address] [place] [address], [facility] [phone] documented in this encounter Visit Diagnoses Diagnosis Neoplasm of uncertain behavior of skin documented in this encounter Care Teams Bridge Game Director Relationship Specialty Start Date End Date Laura Yates MD Orthopedic Surgery 05/18/14 documented as of this encounter
[2025-05-17 06:33] LABS: Hematocrit 44.1 % (42.0-52.0); Hemoglobin 15.8 g/dL (14.0-18.0); Immature Granulocyte Percent A 0.7 % (0-0.5); Lymphocytes Absolute Auto 0.98 K/mm3 (0.9-3.2); Mean Corpuscular HGB Conc 35.8 g/dl (32-36); Mean Corpuscular Hemoglobin 31.4 pg (26-34); Mean Corpuscular Volume 87.7 fl (80-100); Nucleated Red Blood Cells Absolute Auto 0.000 K/mm3 (0.0-0.012); Nucleated Red Blood Cells Perc 0.0 % (0.0-0.2); Platelet Count Result 220 k/mm3 (150-375); Red Blood Count 5.03 M/mm3 (4.6-6.20); White Blood Count 11.2 K/mm3 (4.5-10.0)
[2025-05-17 06:43] LABS: Add Urine Microscopic? YES; Appearance Urine Cloudy (Clear); Glucose Urine UA Negative (Negative); Leukocyte Esterase Ur Negative LEU/UL (Negative); Nitrate Urine Negative (Negative); Non Pathogenic Casts 0-2; Specific Grav Ur 1.013 (1.001-1.035)
[2025-05-17 06:45] LABS: INR 1.1; Partial Thromboplastin Time 27.2 Seconds (22.3-36.8); Prothrombin Time 13.9 Seconds (11.1-14.7)
[2025-05-17 06:50] LABS: Lipase 146 U/L (23-300)
[2025-05-17] MEDS: MORPHINE SULFATE (*CRX) 4 MG/ML INJ IV PUSH (08:01)
[2025-05-17 09:06] LABS: Alanine Aminotransferase 35 U/L (6-50); Albumin Level 4.5 g/dL (3.5-5.1); Alkaline Phosphatase 76 U/L (38-126); Anion Gap 9 mmol/L (4-12); Aspartate Amino Transferase 38 U/L (17-59); Bilirubin,Total 1.4 mg/dL (0.2-1.3); Blood Urea Nitrogen 12 mg/dL (9-20); Calcium 8.8 mg/dL (8.4-10.2); Carbon Dioxide 25 mmol/L (22-30); Chloride 97 mmol/L (98-107); Estimated CRCL calculation 73 ml/min; Estimated Glomerular Filt Rate > 60; Glucose 158 mg/dL (65-110); Potassium 3.7 mmol/L (3.4-5.0); Sodium 131 mmol/L (137-145); Total Protein 7.9 g/dL (6.3-8.2)
[2025-05-17] MEDS: LACTATED RINGERS 1,000 ML 999 ML IV CONT (10:10)
[2025-05-17] MEDS: LOSARTAN POTASSIUM 100 MG TABLET PO (11:18)
--- NOTE | 2025-05-17 12:10 | ADMGEN ---
This patient, Campbell Coronado, was admitted to Medical Room 253-01. Patient/family oriented to hospital policies and general routines including ID bracelet, bed and alarms, visiting hours, pain management, procedures, bathroom and other care routines, personal items, smoking policy, room service/diet, and visiting hours. Information on how to activate the Rapid Response Team has been discussed. Patient/Family are encouraged to report perceived risks to care and to ask questions if they do not understand what they are told or what they should do.
[2025-05-17] MEDS: SODIUM CHLORIDE 0.9% IV 1,000 ML 75 ML IV CONT (13:52)
--- NOTE | 2025-05-17 14:59 | PM.IMHP ---
H&P: HPI History of Present Illness Date/Time: 05/17/25 14:59 Chief Complaint: Abdominal pain and cramps non specific area Narrative: Pt went out for kiswahili food last night in [facility]. Pt ate pad salvadorean with shrimp which tasted bad, pt states he stated having abdominal pain after that. PMH DM type 2 on Ozempic and HTN on diuretics Pt drinks 2-3 glasses of scotch a day. Ct today shows - Likely acute on chronic pancreatitis. 2. 1.4 cm cystic lesion at the tail the pancreas, which is increased over the past 9 years from 0.8 cm.. Kidney stigmata of chronic pancreatitis is most likely represents a secondary pseudocyst. Differential would include less likely intraductal papillary mucinous neoplasm (IPMN), mucinous cystic neoplasm (MCN), and the less common serous cystadenoma and neuroendocrine tumor. 3. A couple simple appearing nonspecific simple appearing cystic lesions along the distal bilateral external iliac vessels, the largest on the right measuring 4.8 cm. These likely represent postoperative seromas given the nearby days prior prostatectomy. Correlate with and surgical history for potential associated pelvic lymph node dissection. Pt states he is still having bad pain and cramps in the abdomen requesting iv pain medication Review of Systems Review of Systems: Ongoing abdominal cramps and nausea no diarrhea or fevers All other 12 systems are negative apart from those in HPI PMFSH Past Medical History Medical History TIA (transient ischemic attack) Anxiety Hernia Diastolic murmur Obstructive sleep apnea (~10/2020) Squamous cell carcinoma History of pancreatitis Benign prostatic hyperplasia Hyperlipidemia Hypertension Type 2 diabetes mellitus Gout Vitamin D deficiency Surgical History Surgical History Hx of colonoscopy History of prostatectomy History of surgical removal of squamous cell carcinoma of skin of right orthodox History of arthroscopy of left knee History of cardiac catheterization July 2011, done at [facility] after an abnormal EKG portion of a stress test with normal myocardial perfusion images. Minimal nonobstructing coronary artery disease was noted. History of testicular surgery H/O left knee surgery Family History Family History Mother Carcinoma of colon Father No problems noted. Sibling Hypertension Pacemaker Cerebrovascular accident Social History Social History Social History: The patient lives with his in [place]. 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 He designates his , Sharmaine, as his surrogate decision maker and he wishes to be a full code. He denies tobacco and drug use. He drinks 6 ounces of scotch, most nights of the week. Smoking status: Never smoker Second hand tobacco smoke exposure: No Alcohol intake: current Drinks per week: 15 Substance use: never Substance use type: does not use Last use: 05/15/25 Do You Feel Safe in your Home?: Yes Lack of Transportation: No Lack of Food: Never True Current Housing: I Have Housing Concerned About Future Housing: No Difficulty Paying Gas/Electric Bills: No Difficulty Paying for Meds: No Currently Unemployed: No Education: Associate Degree Difficulty w/ Childcare or Family Care: No Living arrangements: with family Occupation/Education: retired Additional occupation/education comments: [employer]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[place], [place] Gender identity (if verbalized by the patient): Male Spiritual care concerns: No Agree to blood products: Yes Meds Home Medications and Allergies Home Medications ?Medication ?Instructions ?Recorded ?Confirmed ?Type cetirizine 10 mg tablet (Allergy 10 mg PO DAILY 10/08/19 05/17/25 History Relief (cetirizine)) ascorbic acid (vitamin C) 1,000 mg 1 g PO DAILY 11/18/23 05/17/25 History tablet losartan 100 1 tablet PO DAILY #90 tabs 07/05/24 05/17/25 Rx mg-hydrochlorothiazide 12.5 mg tablet polyethylene glycol 3350 17 17 g PO HS 07/29/24 05/17/25 History gram/dose oral powder (Miralax) semaglutide 1 mg/dose (4 mg/3 mL) 1 mg (0.75 mL) subcut WEEKLY #3 mL 11/30/24 05/17/25 Rx subcutaneous pen injector (Ozempic) Allergies Allergy/AdvReac Type Severity Reaction Status Date / Time levofloxacin Allergy Mild Swelling Verified 05/17/25 05:44 Penicillins Allergy Mild Flushing Verified 05/17/25 05:44 Sulfa (Sulfonamide Allergy Mild swelling Verified 05/17/25 05:44 Antibiotics) Vital Signs Vital Signs - 24 hr 05/17/25 05:51 05/17/25 07:31 05/17/25 07:57 Temperature 36.9 C Pulse Rate 67 60 62 Respiratory Rate 15 19 14 Blood Pressure 191/95 H 205/105 H 155/87 H Pulse Oximetry 96 96 97 Oxygen Delivery Room Air 05/17/25 07:58 05/17/25 08:01 05/17/25 08:31 Temperature Pulse Rate 63 65 63 Respiratory Rate 14 17 16 Blood Pressure 155/87 H 156/71 H 151/76 H Pulse Oximetry 95 96 95 Oxygen Delivery 05/17/25 09:01 05/17/25 09:03 05/17/25 10:31 Temperature Pulse Rate 63 65 62 Respiratory Rate 18 16 16 Blood Pressure 145/75 H 145/75 H 187/102 H Pulse Oximetry 93 96 96 Oxygen Delivery 05/17/25 11:20 05/17/25 11:56 05/17/25 12:35 Temperature 36.9 C 36.9 C Pulse Rate 63 61 61 Respiratory Rate 16 18 18 Blood Pressure 163/75 H 177/90 H Pulse Oximetry 99 96 96 Oxygen Delivery Room Air Exam Const: General: cooperative, healthy appearing and overweight; No in distress Nutritional Appearance: overweight Orientation/consciousness: oriented to person HENMT: Head: normal to inspection Resp: Effort & Inspection: no respiratory distress Auscultation: no rhonchi and no wheezes Cardio: Rate: regular rate Rhythm: regular rhythm GI: Inspection: normal to inspection GI Palp: Yes abdominal tenderness (non specific bloating and tenderness ), No Guarding due to palpation present (GI) and No Hepatomegaly present Auscultation: normal bowel sounds Neuro: General: oriented to person H&P: Results Labs Labs: Short CBC 05/17/25 Range/Units 06:15 WBC 11.2 H (4.5-10.0) K/mm3 Hgb 15.8 (14.0-18.0) g/dL Hct 44.1 (42.0-52.0) % Plt Count 220 (150-375) k/mm3 BMP 05/17/25 06:15 Sodium 131 L Potassium 3.7 Chloride 97 L Carbon Dioxide 25 BUN 12 Creatinine 0.87 Glucose 158 H Calcium 8.8 Liver Function 05/17/25 Range/Units 06:15 Total Bilirubin 1.4 H (0.2-1.3) mg/dL AST 38 (17-59) U/L ALT 35 (6-50) U/L Alkaline Phosphatase 76 (38-126) U/L Albumin 4.5 (3.5-5.1) g/dL Urine 05/17/25 Range/Units 06:32 Urine Color Yellow (Yellow) Urine Appearance Cloudy H (Clear) Urine pH 8.5 (5.0-9.0) Ur Specific Humphreys 1.013 (1.001-1.035) Urine Protein Trace (Negative) mg/dL Urine Glucose (UA) Negative (Negative) mg/dL Assessment and Plan Assessment and plan (1) Pancreatitis: Code(s): K85.90 - Acute pancreatitis without necrosis or infection, unspecified Status: Acute Assessment and Plan: Pancreatitis as seen on ct scan Pt drinking frequently denies any excessive drinking Pt is on ozempic and diuretics which are currently on hold Continue npo with iv fluids and iv pain medications Watch lipase levels and wcc (2) Acute hyponatremia: Code(s): E87.1 - Hypo-osmolality and hyponatremia Status: Acute Assessment and Plan: Sodium level is 131 Continue iv ns watch sodium level (3) Hypertension: Qualifiers: Hypertension type: essential hypertension Qualified Code(s): I10 - Essential (primary) hypertension Code(s): I10 - Essential (primary) hypertension Status: Acute Assessment and Plan: I will hold diuretics, as diuretics can exacerbate pancreatitis (4) Elevated troponin: Code(s): R79.89 - Other specified abnormal findings of blood chemistry Status: Acute Assessment and Plan: Continue to watch troponin levels possible related to pancreatitis flare No chest pain mentioned Continue to trend troponin (5) Hyperlipidemia: Qualifiers: Hyperlipidemia type: other hyperlipidemia Qualified Code(s): E78.49 - Other hyperlipidemia Code(s): E78.5 - Hyperlipidemia, unspecified Status: Acute Assessment and Plan: Order lipid panel (6) Type 2 diabetes mellitus: Qualifiers: Diabetes mellitus terminal gauger supervisor insulin use: without terminal gauger supervisor use Diabetes mellitus complication status: without complication Qualified Code(s): E11.9 - Type 2 diabetes mellitus without complications Code(s): E11.9 - Type 2 diabetes mellitus without complications Status: Acute Assessment and Plan: Hold Ozempic as it can exacerbate pancreatis Order accuhecks, ssi (7) Obesity (BMI 30.0-34.9): Code(s): E66.9 - Obesity, unspecified Status: Acute Assessment and Plan: Pt is trying to loose weight Hospitalist MIPS Advance Care Plan I have confirmed that the patient's Advanced Care Plan is present, code status is documented, or surrogate decision maker is listed in patient medical record.: Yes Medication Reconciliation I have utilized all available resources to obtain, update and review the patients current medications (includes all prescriptions, OTC, herbals, cannabis, and nutritional supplements).: Yes The patient is not eligible for med reconciliation; the patient is in a emergent medical situation where delaying treatment would jeopardize the patients health.: Yes
[2025-05-17] MEDS: HYDROmorphone HCL INJ (*CRX) 1 MG/ML SYR 0.5 MG IV PUSH ×2 (15:25→18:32)
[2025-05-17 17:25] LABS: Anion Gap 6 mmol/L (4-12); Blood Urea Nitrogen 10 mg/dL (9-20); Calcium 8.5 mg/dL (8.4-10.2); Carbon Dioxide 28 mmol/L (22-30); Chloride 97 mmol/L (98-107); Estimated CRCL calculation 67 ml/min; Estimated Glomerular Filt Rate > 60; Glucose 148 mg/dL (65-110); Lipase 83 U/L (23-300); Magnesium 2.2 mg/dL (1.6-2.3); Potassium 3.9 mmol/L (3.4-5.0); Sodium 131 mmol/L (137-145)
[2025-05-17] MEDS: HYDROmorphone HCL INJ (*CRX) 1 MG/ML SYR IV PUSH (21:07)
[2025-05-17 23:37] LABS: Anion Gap 6 mmol/L (4-12); Blood Urea Nitrogen 11 mg/dL (9-20); Calcium 8.1 mg/dL (8.4-10.2); Carbon Dioxide 25 mmol/L (22-30); Chloride 98 mmol/L (98-107); Estimated CRCL calculation 65 ml/min; Estimated Glomerular Filt Rate > 60; Glucose 161 mg/dL (65-110); Lipase 67 U/L (23-300); Potassium 3.7 mmol/L (3.4-5.0); Sodium 129 mmol/L (137-145)
[2025-05-18] MEDS: HYDROmorphone HCL INJ (*CRX) 1 MG/ML SYR 0.5 MG IV PUSH ×2 (00:22→05:50)
[2025-05-18 02:55] VITALS: BP 123/68; PULSE 61; RESP 20; TEMP 36.5; O2SAT 93
[2025-05-18] MEDS: SODIUM CHLORIDE 0.9% IV 1,000 ML 75 ML IV CONT ×2 (03:18→16:35)
[2025-05-18] MEDS: HYDROmorphone HCL INJ (*CRX) 1 MG/ML SYR IV PUSH (07:24)
[2025-05-18 08:32] LABS: Hematocrit 42.7 % (42.0-52.0); Hemoglobin 14.6 g/dL (14.0-18.0); Immature Granulocyte Percent A 0.8 % (0-0.5); Lymphocytes Absolute Auto 0.95 K/mm3 (0.9-3.2); Mean Corpuscular HGB Conc 34.2 g/dl (32-36); Mean Corpuscular Hemoglobin 31.3 pg (26-34); Mean Corpuscular Volume 91.4 fl (80-100); Nucleated Red Blood Cells Absolute Auto 0.000 K/mm3 (0.0-0.012); Nucleated Red Blood Cells Perc 0.0 % (0.0-0.2); Platelet Count Result 207 k/mm3 (150-375); Red Blood Count 4.67 M/mm3 (4.6-6.20); White Blood Count 10.9 K/mm3 (4.5-10.0)
[2025-05-18 08:55] LABS: Alanine Aminotransferase 24 U/L (6-50); Albumin Level 4.0 g/dL (3.5-5.1); Alkaline Phosphatase 60 U/L (38-126); Anion Gap 7 mmol/L (4-12); Aspartate Amino Transferase 37 U/L (17-59); Bilirubin,Total 1.9 mg/dL (0.2-1.3); Blood Urea Nitrogen 12 mg/dL (9-20); Calcium 8.2 mg/dL (8.4-10.2); Carbon Dioxide 25 mmol/L (22-30); Chloride 99 mmol/L (98-107); Estimated CRCL calculation 60 ml/min; Estimated Glomerular Filt Rate > 60; Glucose 140 mg/dL (65-110); Potassium 3.7 mmol/L (3.4-5.0); Sodium 131 mmol/L (137-145); Total Protein 7.1 g/dL (6.3-8.2)
--- NOTE | 2025-05-18 13:16 | P.PNIM_ITS ---
Progress Note: A&P Assessment and Plan (1) Pancreatitis: Code(s): K85.90 - Acute pancreatitis without necrosis or infection, unspecified Status: Acute Assessment and Plan: Pancreatitis as seen on ct scan Pt drinking frequently denies any excessive drinking Pt is on ozempic and diuretics which are currently on hold Continue npo with iv fluids and iv pain medications (2) Acute hyponatremia: Code(s): E87.1 - Hypo-osmolality and hyponatremia Status: Acute Assessment and Plan: Sodium level is 131 Continue iv ns watch sodium level hold HCTZ (3) Hypertension: Qualifiers: Hypertension type: essential hypertension Qualified Code(s): I10 - Essential (primary) hypertension Code(s): I10 - Essential (primary) hypertension Status: Acute Assessment and Plan: hold HCTZ. continue Losartan (4) Elevated troponin: Code(s): R79.89 - Other specified abnormal findings of blood chemistry Status: Acute Assessment and Plan: (5) Hyperlipidemia: Qualifiers: Hyperlipidemia type: other hyperlipidemia Qualified Code(s): E78.49 - Other hyperlipidemia Code(s): E78.5 - Hyperlipidemia, unspecified Status: Acute Assessment and Plan: lipid panel pending (6) Type 2 diabetes mellitus: Qualifiers: Diabetes mellitus complication status: without complication Diabetes mellitus intermediate project manager insulin use: without intermediate project manager use Qualified Code(s): E11.9 - Type 2 diabetes mellitus without complications Code(s): E11.9 - Type 2 diabetes mellitus without complications Status: Acute Assessment and Plan: Hold Ozempic as it can exacerbate pancreatis continue accuhecks, ssi (7) Obesity (BMI 30.0-34.9): Code(s): E66.9 - Obesity, unspecified Status: Acute Assessment and Plan: Pt is trying to loose weight (8) Pseudocyst of pancreas: Code(s): K86.3 - Pseudocyst of pancreas Status: Acute Assessment and Plan: abnormal Ct consulted GI Subjective Date/time seen: 05/18/25 13:16 Interval history: per HPi: Pt went out for qatari food last night in [facility]. Pt ate pad dominican with shrimp which tasted bad, pt states he stated having abdominal pain after that. PMH DM type 2 on Ozempic and HTN on diuretics Pt drinks 2-3 glasses of scotch a day. Ct today shows - Likely acute on chronic pancreatitis. 2. 1.4 cm cystic lesion at the tail the pancreas, which is increased over the past 9 years from 0.8 cm.. Kidney stigmata of chronic pancreatitis is most likely represents a secondary pseudocyst. Differential would include less likely intraductal papillary mucinous neoplasm (IPMN), mucinous cystic neoplasm (MCN), and the less common serous cystadenoma and neuroendocrine tumor. 3. A couple simple appearing nonspecific simple appearing cystic lesions along the distal bilateral external iliac vessels, the largest on the right measuring 4.8 cm. These likely represent postoperative seromas given the nearby days prior prostatectomy. Correlate with and surgical history for potential associated pelvic lymph node dissection. 05/18/25 Patient was in agreement with that. He is feeling better. Abdominal pain improved. Nausea vomiting is getting better. Continue treatment for acute on chronic pancreatitis. NPO Advance diet as tolerated. Continue with IV fluid. Abnormal CT. Concerning for pseudocyst versus other. Consult GI team. Review of Systems Review of Systems: All other 12 systems are negative apart from those in HPI Exam Const: General: cooperative, healthy appearing and overweight; No in distress Nutritional Appearance: overweight Orientation/consciousness: oriented to person HENMT: Head: normal to inspection Resp: Effort & Inspection: no respiratory distress Auscultation: no rhonchi and no wheezes Cardio: Rate: regular rate Rhythm: regular rhythm GI: Inspection: normal to inspection Auscultation: normal bowel sounds Neuro: General: oriented to person Objective Data Vital Signs Vital Signs: Vital Signs - 24 hr 05/17/25 14:00 05/17/25 19:52 05/17/25 20:00 Temperature 97.3 F L 98.4 F Pulse Rate 63 67 Respiratory Rate 16 20 Blood Pressure 187/86 H 127/77 Pulse Oximetry 97 93 Oxygen Delivery Room Air 05/18/25 02:55 05/18/25 08:00 Temperature 97.7 F Pulse Rate 61 Respiratory Rate 20 Blood Pressure 123/68 Pulse Oximetry 93 Oxygen Delivery Room Air Intake/Output Intake/Output: Intake & Output 05/15/25 05/16/25 05/17/25 05/18/25 23:59 23:59 23:59 23:59 Intake Total 1000 1000 Balance 1000 1000 Meds/Results Medications: Active Medications Generic Name Dose Route Start Last Admin Trade Name Freq PRN Reason Stop Dose Admin Dextrose 12.5 gm 05/17/25 15:03 Dextrose 50% 25 Gm/50 Ml Syringe IV PUSH PRN PRN Hypoglycemia Protocol Glucagon 1 mg 05/17/25 15:03 Glucagon For Inj 1 Mg Vial IM PRN PRN Hypoglycemia Protocol Glucose 15 gm 05/17/25 15:03 Glucose Oral Gel 15 Gm Of Glucse In 37.5 Gm Tube PO PRN PRN Hypoglycemia Protocol Hydrochlorothiazide 12.5 mg 05/17/25 09:00 05/17/25 12:07 Hydrochlorothiazide 12.5 Mg Capsule PO Not Given On Hold: 05/17/25 15:02 QAM MIRTA Hydromorphone HCl 0.5 mg 05/17/25 15:01 05/18/25 05:50 Hydromorphone Hcl Inj (*Crx) 1 Mg/Ml Syr IV PUSH 0.5 mg Q3H PRN Administration Pain Rated 4-6 Hydromorphone HCl 1 mg 05/17/25 20:55 05/18/25 07:24 Hydromorphone Hcl Inj (*Crx) 1 Mg/Ml Syr IV PUSH 1 mg Q3H PRN Administration Pain Rated 7-10 Sodium Chloride 1,000 mls @ 75 mls/hr 05/17/25 13:45 05/18/25 03:18 Normal Saline Iv IV CONT 75 mls/hr .[id number] MIRTA Administration Dextrose 1,000 mls @ 100 mls/hr 05/17/25 15:03 Dextrose 5% 1,000 Ml IVPB PRN PRN Hypoglycemia Protocol Dextrose 1,000 mls @ 50 mls/hr 05/18/25 13:11 Dextrose 10% IV CONT .Q20H PRN if PN is interrupted Multivitamins 1.25 ml/ 1,002.5 mls @ 40 mls/hr 05/18/25 13:15 Multivitamins 1.25 ml/ Amino IV CONT Acids/Electrolytes/Dextrose .Q24H MIRTA Protocol Insulin Aspart 2 - 5 units 05/17/25 17:00 05/18/25 11:49 Insulin Aspart (*Bkc) 100 Units/Ml SUB-Q Not Given TIDWM [facility] Protocol Losartan Potassium 100 mg 05/17/25 09:00 05/17/25 12:07 Losartan Potassium 100 Mg Tablet PO Not Given DAILY [facility] Polyethylene Glycol 17 gm 05/17/25 21:00 05/17/25 20:39 Polyethylene Glycol 3350 17 Gm Powd.Pack PO Not Given HS [facility] Radiology Results: ITS Impressions Abdomen/Pelvis CT 05/17/25 09:31 IMPRESSION: 1. Likely acute on chronic pancreatitis. 2. 1.4 cm cystic lesion at the tail the pancreas, which is increased over the past 9 years from 0.8 cm.. Kidney stigmata of chronic pancreatitis is most likely represents a secondary pseudocyst. Differential would include less likely intraductal papillary mucinous neoplasm (IPMN), mucinous cystic neoplasm (MCN), and the less common serous cystadenoma and neuroendocrine tumor. 3. A couple simple appearing nonspecific simple appearing cystic lesions along the distal bilateral external iliac vessels, the largest on the right measuring 4.8 cm. These likely represent postoperative seromas given the nearby days prior prostatectomy. Correlate with and surgical history for potential associated pelvic lymph node dissection. Labs Labs: Laboratory Results - last 24 hr 05/17/25 05/17/25 05/17/25 16:49 18:00 19:57 WBC RBC Hgb Hct MCV MCH MCHC RDW Plt Count MPV Immature Gran % (Auto) Neut % (Auto) Lymph % (Auto) [place] % (Auto) Eos % (Auto) Baso % (Auto) Lymph # (Auto) [place] # (Auto) Eos # (Auto) Baso # (Auto) Abs Immat Gran (auto) Absolute Neuts (auto) Absolute Nucleated RBC Nucleated RBC % Sodium 131 L Potassium 3.9 Chloride 97 L Carbon Dioxide 28 Anion Gap 6 BUN 10 Creatinine 0.95 Estim Creat Clear Calc 67 Estimated GFR > 60 Glucose 148 H POC Capillary Glucose 146 H 159 H Calcium 8.5 Magnesium 2.2 Total Bilirubin AST ALT Alkaline Phosphatase Total Protein Albumin Lipase 83 05/17/25 05/18/25 05/18/25 23:21 07:34 08:19 WBC 10.9 H RBC 4.67 Hgb 14.6 Hct 42.7 MCV 91.4 MCH 31.3 MCHC 34.2 RDW 12.9 Plt Count 207 MPV 8.9 Immature Gran % (Auto) 0.8 H Neut % (Auto) 73.1 Lymph % (Auto) 8.8 L [place] % (Auto) 14.3 H Eos % (Auto) 2.5 Baso % (Auto) 0.5 Lymph # (Auto) 0.95 [place] # (Auto) 1.6 H Eos # (Auto) 0.3 Baso # (Auto) 0.1 Abs Immat Gran (auto) 0.09 H Absolute Neuts (auto) 7.9 H Absolute Nucleated RBC 0.000 Nucleated RBC % 0.0 Sodium 129 L 131 L Potassium 3.7 3.7 Chloride 98 99 Carbon Dioxide 25 25 Anion Gap 6 7 BUN 11 12 Creatinine 0.99 1.07 Estim Creat Clear Calc 65 60 Estimated GFR > 60 > 60 Glucose 161 H 140 H POC Capillary Glucose 145 H Calcium 8.1 L 8.2 L Magnesium Total Bilirubin 1.9 H AST 37 ALT 24 Alkaline Phosphatase 60 Total Protein 7.1 Albumin 4.0 Lipase 67 05/18/ 11:34 WBC RBC Hgb Hct MCV MCH MCHC RDW Plt Count MPV Immature Gran % (Auto) Neut % (Auto) Lymph % (Auto) [place] % (Auto) Eos % (Auto) Baso % (Auto) Lymph # (Auto) [place] # (Auto) Eos # (Auto) Baso # (Auto) Abs Immat Gran (auto) Absolute Neuts (auto) Absolute Nucleated RBC Nucleated RBC % Sodium Potassium Chloride Carbon Dioxide Anion Gap BUN Creatinine Estim Creat Clear Calc Estimated GFR Glucose POC Capillary Glucose 154 H Calcium Magnesium Total Bilirubin AST ALT Alkaline Phosphatase Total Protein Albumin Lipase
[2025-05-18 14:00] VITALS: BP 147/81; PULSE 59; RESP 14; TEMP 36.6; O2SAT 96
[2025-05-18 14:59] LABS: Alanine Aminotransferase 25 U/L (6-50); Albumin Level 4.2 g/dL (3.5-5.1); Alkaline Phosphatase 54 U/L (38-126); Anion Gap 9 mmol/L (4-12); Aspartate Amino Transferase 33 U/L (17-59); Bilirubin,Total 1.9 mg/dL (0.2-1.3); Blood Urea Nitrogen 13 mg/dL (9-20); Calcium 8.3 mg/dL (8.4-10.2); Carbon Dioxide 27 mmol/L (22-30); Chloride 97 mmol/L (98-107); Estimated CRCL calculation 63 ml/min; Estimated Glomerular Filt Rate > 60; Glucose 125 mg/dL (65-110); Potassium 4.0 mmol/L (3.4-5.0); Sodium 133 mmol/L (137-145); Total Protein 7.6 g/dL (6.3-8.2)
--- NOTE | 2025-05-18 16:27 | WPDGICN ---
Assessment and Plan Assessment and plan (1) Acute on chronic pancreatitis: Code(s): K85.90 - Acute pancreatitis without necrosis or infection, unspecified; K86.1 - Other chronic pancreatitis Status: Acute Assessment and Plan: he is already feeling better will advance diet as tolerated noted ct scan findings, small pancreatic cyst- could be pseudocyst- will order MRCP once he comes to see us in office in few weeks he should not drink any more alcohol- probably cause of pancreatitis GB is normal (2) Right upper quadrant abdominal pain: Code(s): R10.11 - Right upper quadrant pain Status: Acute (3) Pseudocyst of pancreas: Code(s): K86.3 - Pseudocyst of pancreas Status: Acute (4) Hypertension: Qualifiers: Hypertension type: essential hypertension Qualified Code(s): I10 - Essential (primary) hypertension Code(s): I10 - Essential (primary) hypertension Status: Acute (5) Type 2 diabetes mellitus: Qualifiers: Diabetes mellitus exterminator helper termite insulin use: without custodial use Diabetes mellitus complication status: without complication Qualified Code(s): E11.9 - Type 2 diabetes mellitus without complications Code(s): E11.9 - Type 2 diabetes mellitus without complications Status: Acute (6) Alcohol abuse: Code(s): F10.10 - Alcohol abuse, uncomplicated Status: Acute GI Consult Note Consult date/time: 05/18/25 16:27 Reason for consult: abdominal pain HPI: Campbell Coronado is a 74 year old male with history of DM type 2 on Ozempic, HTN on diuretics. Pt drinks 2-3 glasses of scotch a day for years. Had first episode of pancreatitis about 5 years ago. Here with new onset of severe pain, 8/10 intensity, after he had ge[place]ian food, also dry heaves but no vomiting. He is feeling much better now after medical treatment. CT scan showed likely acute on chronic pancreatitis. 1.4 cm cystic lesion at the tail the pancreas, which is increased over the past 9 years from 0.8 cm, stigmata of chronic pancreatitis is most likely represents a secondary pseudocyst. Lipase normal, bili 1.9 other liver enzymes normal. Review of Systems Constitutional: Constitutional: Denies headache(s) and Denies weakness Eyes: Eyes: Denies blurry vision ENT: Reports Normal hearing present, Denies headache(s) and Denies neck pain Cardiovascular: Cardiovascular: Denies chest pain and Denies dyspnea Respiratory: Respiratory: Denies dyspnea Gastrointestinal: Gastrointestinal: Reports no additional gastrointestinal complaints Genitourinary: Genitourinary: Denies dysuria Musculoskeletal: Musculoskeletal: Denies neck pain Integumentary/Breasts: Skin/Breast: Denies dry skin Neurologic: Reports Normal hearing present, Denies headache(s) and Denies weakness Psychiatric: Psychiatric: Denies anxiety [facility] Past Medical History Medical History (Updated 05/18/25 @ 13:26 by Alba Diaz MD) Alcohol abuse TIA (transient ischemic attack) Anxiety Hernia Diastolic murmur Obstructive sleep apnea (~10/2020) Squamous cell carcinoma History of pancreatitis Benign prostatic hyperplasia Hyperlipidemia Hypertension Type 2 diabetes mellitus Gout Vitamin D deficiency Surgical History Surgical History Hx of colonoscopy History of prostatectomy History of surgical removal of squamous cell carcinoma of skin of right mormonism History of arthroscopy of left knee History of cardiac catheterization July 2011, done at [place] after an abnormal EKG portion of a stress test with normal myocardial perfusion images. Minimal nonobstructing coronary artery disease was noted. History of testicular surgery H/O left knee surgery Family History Family History Mother Carcinoma of colon Father No problems noted. Sibling Hypertension Pacemaker Cerebrovascular accident Social History Social History Social History: The patient lives with his in [place]. 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 He designates his , Sharmaine, as his surrogate decision maker and he wishes to be a full code. He denies tobacco and drug use. He drinks 6 ounces of scotch, most nights of the week. 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[employer] [place] Gender identity (if verbalized by the patient): Male Spiritual care concerns: No Agree to blood products: Yes Meds Home Medications and Allergies Home Medications ?Medication ?Instructions ?Recorded ?Confirmed ?Type cetirizine 10 mg tablet (Allergy 10 mg PO DAILY 10/08/19 05/17/25 History Relief (cetirizine)) ascorbic acid (vitamin C) 1,000 mg 1 g PO DAILY 11/18/23 05/17/25 History tablet losartan 100 1 tablet PO DAILY #90 tabs 07/05/24 05/17/25 Rx mg-hydrochlorothiazide 12.5 mg tablet polyethylene glycol 3350 17 17 g PO HS 07/29/24 05/17/25 History gram/dose oral powder (Miralax) semaglutide 1 mg/dose (4 mg/3 mL) 1 mg (0.75 mL) subcut WEEKLY #3 mL 11/30/24 05/17/25 Rx subcutaneous pen injector (Ozempic) Allergies Allergy/AdvReac Type Severity Reaction Status Date / Time levofloxacin Allergy Mild Swelling Verified 05/17/25 05:44 Penicillins Allergy Mild Flushing Verified 05/17/25 05:44 Sulfa (Sulfonamide Allergy Mild swelling Verified 05/17/25 05:44 Antibiotics) Vital Signs Vital Signs - 24 hr 05/17/25 19:52 05/17/25 20:00 05/18/25 02:55 Temperature 98.4 F 97.7 F Pulse Rate 67 61 Respiratory Rate 20 20 Blood Pressure 127/77 123/68 Pulse Oximetry 93 93 Oxygen Delivery Room Air 05/18/25 08:00 05/18/25 14:00 Temperature 97.8 F Pulse Rate 59 L Respiratory Rate 14 Blood Pressure 147/81 H Pulse Oximetry 96 Oxygen Delivery Room Air Exam Const: General: comfortable and no acute distress HENMT: Face/Nose/Sinus: Normal nares present Eyes: General: appearance normal, both eyes and all related structures Neck: Neck: no JVD Resp: Auscultation: clear to auscultation bilaterally Cardio: Rate: regular rate Rhythm: regular rhythm GI: Inspection: non-distended GI Palp: Yes Soft to palpation Skin: General skin exam: normal color Neuro: Speech: normal speech Extrem: General: normal to inspection Psych: Mental Status: mental status grossly normal Results Labs 05/18/25 08:19 05/18/25 14:33 Labs: Short CBC 05/18/25 Range/Units 08:19 WBC 10.9 H (4.5-10.0) K/mm3 Hgb 14.6 (14.0-18.0) g/dL Hct 42.7 (42.0-52.0) % Plt Count 207 (150-375) k/mm3 [facility] 05/17/25 05/17/25 05/18/25 16:49 23:21 08:19 Sodium 131 L 129 L 131 L Potassium 3.9 3.7 3.7 Chloride 97 L 98 99 Carbon Dioxide 28 25 25 BUN 10 11 12 Creatinine 0.95 0.99 1.07 Glucose 148 H 161 H 140 H Calcium 8.5 8.1 L 8.2 L 05/18/25 14:33 Sodium 133 L Potassium 4.0 Chloride 97 L Carbon Dioxide 27 BUN 13 Creatinine 1.01 Glucose 125 H Calcium 8.3 L Liver Function 05/18/25 05/18/25 Range/Units 08:19 14:33 Total Bilirubin 1.9 H 1.9 H (0.2-1.3) mg/dL AST 37 33 (17-59) U/L ALT 24 25 (6-50) U/L Alkaline Phosphatase 60 54 (38-126) U/L Albumin 4.0 4.2 (3.5-5.1) g/dL
[2025-05-18 20:00] VITALS: PULSE 69; RESP 20; O2SAT 97
[2025-05-18 20:30] VITALS: PULSE 63; O2SAT 95
[2025-05-18 20:56] VITALS: BP 154/70; PULSE 69; RESP 20; TEMP 36.7; O2SAT 97
[2025-05-19 04:55] LABS: Hematocrit 39.2 % (42.0-52.0); Hemoglobin 13.2 g/dL (14.0-18.0); Immature Granulocyte Percent A 1.0 % (0-0.5); Lymphocytes Absolute Auto 1.10 K/mm3 (0.9-3.2); Mean Corpuscular HGB Conc 33.7 g/dl (32-36); Mean Corpuscular Hemoglobin 31.0 pg (26-34); Mean Corpuscular Volume 92.0 fl (80-100); Nucleated Red Blood Cells Absolute Auto 0.000 K/mm3 (0.0-0.012); Nucleated Red Blood Cells Perc 0.0 % (0.0-0.2); Platelet Count Result 183 k/mm3 (150-375); Red Blood Count 4.26 M/mm3 (4.6-6.20); White Blood Count 8.6 K/mm3 (4.5-10.0)
[2025-05-19 06:00] VITALS: BP 163/78; PULSE 60; RESP 20; TEMP 36.4; O2SAT 96
[2025-05-19] MEDS: SODIUM CHLORIDE 0.9% IV 1,000 ML 75 ML IV CONT (06:10)
[2025-05-19] MEDS: LOSARTAN POTASSIUM 100 MG TABLET PO (08:40)
--- NOTE | 2025-05-19 09:23 | PM.DS ---
DS: Admitting Diagnosis Discharge Date 05/19/25 Admitting Diagnosis pancreatitis DS: Discharge Diagnosis Discharge Diagnosis (1) Pancreatitis: Code(s): K85.90 - Acute pancreatitis without necrosis or infection, unspecified Status: Acute Assessment and Plan: Pancreatitis as seen on ct scan Pt drinking frequently denies any excessive drinking Pt is on ozempic and diuretics which are currently on hold tolerating diet, advance as tolerated (2) Acute hyponatremia: Code(s): E87.1 - Hypo-osmolality and hyponatremia Status: Acute Assessment and Plan: hold HCTZ (3) Hypertension: Qualifiers: Hypertension type: essential hypertension Qualified Code(s): I10 - Essential (primary) hypertension Code(s): I10 - Essential (primary) hypertension Status: Acute Assessment and Plan: hold HCTZ. continue Losartan (4) Elevated troponin: Code(s): R79.89 - Other specified abnormal findings of blood chemistry Status: Acute Assessment and Plan: (5) Hyperlipidemia: Qualifiers: Hyperlipidemia type: other hyperlipidemia Qualified Code(s): E78.49 - Other hyperlipidemia Code(s): E78.5 - Hyperlipidemia, unspecified Status: Acute Assessment and Plan: lipid panel pending (6) Type 2 diabetes mellitus: Qualifiers: Diabetes mellitus complication status: without complication Diabetes mellitus long filler cigar roller machine insulin use: without group home use Qualified Code(s): E11.9 - Type 2 diabetes mellitus without complications Code(s): E11.9 - Type 2 diabetes mellitus without complications Status: Acute Assessment and Plan: Ozempic was on hold as it can exacerbate pancreatis continue accuhecks, ssi (7) Obesity (BMI 30.0-34.9): Code(s): E66.9 - Obesity, unspecified Status: Acute Assessment and Plan: Pt is trying to loose weight (8) Pseudocyst of pancreas: Code(s): K86.3 - Pseudocyst of pancreas Status: Acute Assessment and Plan: abnormal Ct consulted GI, recs follow as outpatient for MRCP DS: Summary Hospital Course Hospital Course: per HPi: Pt went out for wolof food last night in [place]. Pt ate pad ryder with shrimp which tasted bad, pt states he stated having abdominal pain after that. PMH DM type 2 on Ozempic and HTN on diuretics Pt drinks 2-3 glasses of scotch a day. Ct today shows - Likely acute on chronic pancreatitis. 2. 1.4 cm cystic lesion at the tail the pancreas, which is increased over the past 9 years from 0.8 cm.. Kidney stigmata of chronic pancreatitis is most likely represents a secondary pseudocyst. Differential would include less likely intraductal papillary mucinous neoplasm (IPMN), mucinous cystic neoplasm (MCN), and the less common serous cystadenoma and neuroendocrine tumor. 3. A couple simple appearing nonspecific simple appearing cystic lesions along the distal bilateral external iliac vessels, the largest on the right measuring 4.8 cm. These likely represent postoperative seromas given the nearby days prior prostatectomy. Correlate with and surgical history for potential associated pelvic lymph node dissection. 05/18/25 Patient was seen and examined at bedside. He is feeling better. Abdominal pain improved. Nausea vomiting is getting better. Continue treatment for acute on chronic pancreatitis. he was initially NPO. we gradually Advanced diet and he tolerated. Abnormal CT. Concerning for pseudocyst versus other.GI team recommended follow up as outpatient . MRCP as outaptinet encouraged patient to quit alcohol Status at Discharge Overall status at discharge: patient is progressing back to baseline Time Spent with Patient Time attestation: Total time spent providing and/or coordinating discharge services: Time spent: Greater than 30 minutes Exam Const: General: cooperative, healthy appearing and overweight; No in distress Nutritional Appearance: overweight Orientation/consciousness: oriented to person HENMT: Head: normal to inspection Resp: Effort & Inspection: no respiratory distress Auscultation: no rhonchi and no wheezes Cardio: Rate: regular rate Rhythm: regular rhythm GI: Inspection: normal to inspection Auscultation: normal bowel sounds Neuro: General: oriented to person DS: Data Data Completed and Pending Labs on day of discharge: Labs from last 24 hours 05/19/25 05/19/25 05/18/25 08:04 04:25 20:49 WBC 8.6 RBC 4.26 L Hgb 13.2 L Hct 39.2 L MCV 92.0 MCH 31.0 MCHC 33.7 RDW 12.7 Plt Count 183 MPV 9.2 Immature Gran % (Auto) 1.0 H Neut % (Auto) 67.5 Lymph % (Auto) 12.8 L [place] % (Auto) 13.2 H Eos % (Auto) 4.8 H Baso % (Auto) 0.7 Lymph # (Auto) 1.10 [place] # (Auto) 1.1 H Eos # (Auto) 0.4 H Baso # (Auto) 0.1 Abs Immat Gran (auto) 0.09 H Absolute Neuts (auto) 5.8 Absolute Nucleated RBC 0.000 Nucleated RBC % 0.0 Sodium Potassium Chloride Carbon Dioxide Anion Gap BUN Creatinine Estim Creat Clear Calc Estimated GFR Glucose POC Capillary Glucose 135 H 98 Calcium Total Bilirubin AST ALT Alkaline Phosphatase Total Protein Albumin 05/18/25 05/18/25 05/18/25 16:33 14:33 11:34 WBC RBC Hgb Hct MCV MCH MCHC RDW Plt Count MPV Immature Gran % (Auto) Neut % (Auto) Lymph % (Auto) [place] % (Auto) Eos % (Auto) Baso % (Auto) Lymph # (Auto) [place] # (Auto) Eos # (Auto) Baso # (Auto) Abs Immat Gran (auto) Absolute Neuts (auto) Absolute Nucleated RBC Nucleated RBC % Sodium 133 L Potassium 4.0 Chloride 97 L Carbon Dioxide 27 Anion Gap 9 BUN 13 Creatinine 1.01 Estim Creat Clear Calc 63 Estimated GFR > 60 Glucose 125 H POC Capillary Glucose 99 154 H Calcium 8.3 L Total Bilirubin 1.9 H AST 33 ALT 25 Alkaline Phosphatase 54 Total Protein 7.6 Albumin 4.2 Discharge Plan Discharge Attending physician on discharge: Alba Diaz Consulting providers: Alba Diaz; Brice Kessler Discharging Clinician: Alba Diaz Anticipated Discharge Date/Time: 05/19/25 09:26 Patient Disposition: Home Activity: as tolerated Diet: as tolerated and heart healthy Discharge Instructions: quit alcohol follow with PCP in one week Follow with Gi clinic and MRCP as outpatient follow repeat blood test next week and report to the pCP Patient Instructions: Antibiotic Form Patient Language: Northern Irish Stand Alone Forms: General Discharge Information Follow-up/Referrals: Perry Mathis APRN [Primary Care Provider, Internal Medicine] - 1 Week Brice Kessler MD [Physician, Gastroenterology] - Call for Appointment Problems: Pseudocyst of pancreas Discharge Medications: New losartan 100 mg Tablet 100 mg PO DAILY Qty: 30 0RF Continued ascorbic acid (vitamin C) 1,000 mg tablet 1 g PO DAILY Ozempic 1 mg/dose (4 mg/3 mL) pen injector 1 mg subcut WEEKLY Qty: 3 5RF polyethylene glycol 3350 [Miralax] 17 gram/dose Powder 17 g PO HS Discontinued losartan-hydrochlorothiazide 100-12.5 mg tablet 1 tablet PO DAILY Qty: 90 3RF No Action cetirizine [Allergy Relief (cetirizine)] 10 mg tablet 10 mg PO DAILY Other Ambulatory Orders: Comprehensive Metabolic Panel (Routine) Timeframe: 2 Days Location: Determined by Patient Ordered By: Alba Diaz MR MRCP wo/w con/w 3D wo ind (Routine) Timeframe: 1 Week Location: Determined by Patient Ordered By: Alba Diaz Date of admission: 05/18/25 14:25 Primary Care Provider: Perry Mathis Admitting Provider: Rose Goyal Attending physician on admission: Rose Goyal Condition: Stable
[2025-05-19 10:10] LABS: Alanine Aminotransferase 21 U/L (6-50); Albumin Level 3.7 g/dL (3.5-5.1); Alkaline Phosphatase 55 U/L (38-126); Anion Gap 8 mmol/L (4-12); Aspartate Amino Transferase 34 U/L (17-59); Bilirubin,Total 1.4 mg/dL (0.2-1.3); Blood Urea Nitrogen 11 mg/dL (9-20); Calcium 7.9 mg/dL (8.4-10.2); Carbon Dioxide 24 mmol/L (22-30); Chloride 100 mmol/L (98-107); Estimated CRCL calculation 67 ml/min; Estimated Glomerular Filt Rate > 60; Glucose 113 mg/dL (65-110); Potassium 3.8 mmol/L (3.4-5.0); Sodium 132 mmol/L (137-145); Total Protein 6.8 g/dL (6.3-8.2)
== END 2025-05-19 13:52 | disposition home or self-care (01) | DRG 439 ==
LOC: ANHED 10:30 → ANH3MEDSUR 11:05 → ANH2MED 11:17
PROVIDERS: Emergency Medicine; Family Medicine; Admitting Provider Internal Medicine; Emergency Provider Emergency Medicine; PCP Nurse Practitioner; Visit Provider Internal Medicine
DX: K85.90 Acute pancreatitis without necrosis or infection, unspecified (principal); E87.1 Hypo-osmolality and hyponatremia; K86.3 Pseudocyst of pancreas; I38 Endocarditis, valve unspecified; I10 Essential (primary) hypertension; E11.9 Type 2 diabetes mellitus without complications; N40.0 Benign prostatic hyperplasia without lower urinary tract symptoms; E78.5 Hyperlipidemia, unspecified; G47.33 Obstructive sleep apnea (adult) (pediatric); E66.9 Obesity, unspecified; F10.20 Alcohol dependence, uncomplicated; M10.9 Gout, unspecified; E55.9 Vitamin D deficiency, unspecified; R79.89 Other specified abnormal findings of blood chemistry; Z79.85 Long-term (current) use of injectable non-insulin antidiabetic drugs; Z68.30 Body mass index [BMI] 30.0-30.9, adult; Z85.9 Personal history of malignant neoplasm, unspecified; Z86.73 Personal history of transient ischemic attack (TIA), and cerebral infarction without residual deficits; Z86.59 Personal history of other mental and behavioral disorders
CPT/HCPCS: 36415; 74177; 80048; 80053; 81001; 82948; 83605; 83690; 83735; 85025; 85610; 85730; 93005; 96361; 96374; 96375; 96376; 99285; A9270; G0378; J1171; J2270; J2405; J7030; J7120; Q9967